=== PATIENT | female | born 1955 | race Caucasian/White ===

== ENCOUNTER 2021-01-28 10:01 | Inpatient (IN) | payer MEDICARE, SELFPAY ==
[2021-01-28] VITALS (63 sets, daily range): BP systolic 59–141; BP diastolic 35–92; PULSE 14–119; RESP 10–30; TEMP 37.1–37.9; O2SAT 92–100; BMI 39.3
--- NOTE | ~2021-01-28 | XR_ITS ---
EXAMINATION: XR abdomen/kub 1V DATE: 01/28/2021 13:59 INDICATION: Kidney stone TECHNIQUE: A supine view of the abdomen was obtained. COMPARISON: CT dated 01/28/2021 FINDINGS: The previously noted obstructing 5-6 mm stone in the proximal left ureter can be seen projecting call ed to the left transverse process of L4. The largest 6 mm right renal stone is also visualized. Tiny stones in the left kidney are unable to be distinguished. 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 Cholecyst ectomy clips in right upper quadrant. Surgical clip, possibly a dropped cholecystectomy clip projects over the central pelvis. Normal bowel gas pattern. IMPRESSION: 1. Bilateral nephrolithiasis with visualization of the previous noted obstructing 506 mm stone at the proximal left ureter. 2. 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 Reviewed, dictated and finalized at location A. ITAL INSURANCE CLERK IMPRESSION: 1. Bilateral nephrolithiasis with visualization of the previous noted obstructi ng 506 mm stone at the proximal left ureter. 2. 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
--- NOTE | ~2021-01-28 | XR_ITS ---
EXAMINATION: XR chest 1V portable DATE: 02/02/2021 05:45 INDICATION: Respiratory failure. Septic shock. TECHNIQUE: A single frontal view of the chest was obtained. COMPARISON: Chest single view 02/01/2021, CT abdomen and pelvis 01/30/2021 FINDINGS: There are airspace opacities in the lower lung zones. There are small pleural effusions. No pneumothorax. The heart size is normal. The endotracheal tube tip is 7.2 cm above the su. The na sogastric tube tip is in the stomach. A right internal jugular central venous catheter is seen with t ip in the proximal right atrium. IMPRESSION: 1. Stable small pleural effusions. 2. Improved airspace opacities in the lower lung zones, consistent with atelectasis versus pneumonia. Reviewed, dictated and finalized at location A. ER OCTAVE BOARD IMPRESSION: 1. Stable small pleural effusions. 2. Improved airspace opacities in the lower lung zones, consistent with atelect asis versus pneumonia.
--- NOTE | ~2021-01-28 | XR_ITS ---
EXAMINATION: XR chest 1V portable DATE: 02/03/2021 05:40 INDICATION: Respiratory failure. Septic shock. TECHNIQUE: A single frontal view of the chest was obtained. COMPARISON: Chest single view 02/02/2021, CT abdomen and pelvis 01/30/2021 FINDINGS: There are airspace opacities in the lower lung zones. There is a small left pleural effusio n. No pneumothorax. The heart size is normal. A right internal jugular central venous catheter is see n with tip at the superior cavoatrial junction. Surgical clips in the right upper quadrant are likely from cholecystectomy. IMPRESSION: 1. Stable airspace opacities in the lower lung zones, consistent with atelectasis versus pneumonia. 2. Stable small left pleural effusion. Reviewed, dictated and finalized at location A. CRUSHER IMPRESSION: 1. Stable airspace opacities in the lower lung zones, consistent with atelectas is versus pneumonia. 2. Stable small left pleural effusion.
--- NOTE | ~2021-01-28 | XR_ITS ---
XR chest ET placement DATE: 01/28/2021 16:27 INDICATION: ET tube placement TECHNIQUE: Portable supine AP chest on 01/28/2021 at 1618 hours COMPARISON: 01/28/2021 portable AP chest at 1510 hours FINDINGS: ET tube in satisfactory position 4.5 cm above su. NG tube in stomach. Right internal jugular central venous catheter tip is again noted with a loop in the lower aspect of the inferior vena cava, unchanged since 1510 hours. No pneumothorax is noted. There is mild bibasilar atelectasis. Cardiomegaly, mitral annulus calcification, aortic arch calcification. Diffuse osteopenia. IMPRESSION: ET and NG tubes in satisfactory position Right internal jugular central venous catheter is looped in the lower aspect of the superior vena cav a Bibasilar atelectasis Reviewed, dictated and finalized at Location A. Reviewed, dictated and finalized at location A. RMATION TECHNOLOGY ARCHITECT IMPRESSION: ET and NG tubes in satisfactory position Right internal jugular central venous catheter is looped in the lower aspect of the superior vena cava Bibasilar atelectasis
--- NOTE | ~2021-01-28 | XR_ITS ---
XR chest port-a-cath/central DATE: 01/28/2021 15:19 INDICATION: Central line placement TECHNIQUE: Portable supine AP chest on 01/28/2021 at 1510 hours COMPARISON: 01/28/2021 AP chest FINDINGS: A right internal jugular central venous catheter extends to the superior cavoatrial junctio n and then makes a 180 degree turn, looping proximally approximately 4 cm, distal tip overlying the m id to lower superior vena cava. Heart size is normal. Mitral annulus calcification. Aortic calcification. There is mild bibasilar infiltrate and/atelectasis. The lungs otherwise appear clear of consolidation . No pneumothorax or pleural effusion is evident. Diffuse osteopenia. Degenerative spurring of the thoracic spine, osteophytic change at the glenohumer al joints and degenerative change at the acromioclavicular joints. IMPRESSION: Right internal jugular central venous catheter looped upon itself in the lower superior v kayley cava No pneumothorax Mild bibasilar infiltrate and/or atelectasis Reviewed, dictated and finalized at Location A. Reviewed, dictated and finalized at location A. RANCE OFFICE MANAGER IMPRESSION: Right internal jugular central venous catheter looped upon itself i n the lower superior vena cava No pneumothorax Mild bibasilar infiltrate and/or atelectasis
--- NOTE | ~2021-01-28 | XR_ITS ---
EXAMINATION: XR chest port-a-cath/central DATE: 01/31/2021 14:21 INDICATION: Central line placement. TECHNIQUE: A single frontal view of the chest was obtained. COMPARISON: Chest single view at 12:23 PM, CT abdomen and pelvis 01/30/2021 FINDINGS: There are airspace opacities in the perihilar regions and at the lung bases. There are smal l pleural effusions. No pneumothorax. Cardiomegaly is noted. A right internal jugular central venous catheter is seen with tip in the proximal right atrium. The endotracheal tube tip is 5.0 cm above the su. The nasogastric tube tip is beyond the inferior margin of the radiograph, but at least to th e stomach. IMPRESSION: 1. New central line tip in proximal right atrium. 2. Worsened airspace opacities in the perihilar regions and at the lung bases, likely a combination o f atelectasis and mild pulmonary edema. 3. Small pleural effusions. 4. Cardiomegaly. Reviewed, dictated and finalized at location A. RITY SALES MANAGER IMPRESSION: 1. New central line tip in proximal right atrium. 2. Worsened airspace opacities in the perihilar regions and at the lung bases, likely a combination of atelectasis and mild pulmonary edema. 3. Small pleural effusions. 4. Cardiomegaly.
--- NOTE | ~2021-01-28 | XR_ITS ---
EXAMINATION: XR retrograde pyelo w/stent LT DATE: 01/28/2021 16:03 INDICATION: Left internal ureteral stent placement TECHNIQUE: Fluoroscopic images from a left internal ureteral stent placement are submitted for review . 11 seconds of fluoroscopy time. FINDINGS: There is a left double-J internal ureteral stent projecting in expected position, with proximal [place] loop at the level of the renal pelvis and distal loop in the pelvis within the bladder lumen. IMPRESSION: 1. Left internal ureteral stent placement. Please refer to real-time procedural findings for detail s. Reviewed, dictated and finalized at location A. E SALES DRIVER IMPRESSION: 1. Left internal ureteral stent placement. Please refer to real-time procedur al findings for details.
--- NOTE | ~2021-01-28 | XR_ITS ---
XR abdomen NG/feed tube insert DATE: 01/28/2021 16:27 INDICATION: Orogastric tube placement TECHNIQUE: Portable AP view of left upper and midabdomen on 01/28/2021 at 1620 hours COMPARISON: None FINDINGS: Orogastric tube is present, distal tip overlying the mid and lower aspect of the body of th e stomach. Radiopaque contrast material is noted in the left renal collecting structures. Degenerative spurring of the thoracic and lumbar spine. IMPRESSION: OG tube in mid to lower body of stomach Reviewed, dictated and finalized at Location A. Reviewed, dictated and finalized at location A. VASC TECH
--- NOTE | ~2021-01-28 | CT_ITS ---
EXAMINATION: CT chest abdomen pelvis wo con DATE: 01/28/2021 12:09 INDICATION: Tachycardia. Transient pneumonitis. TECHNIQUE: Computed tomography (CT) of the chest, abdomen, and pelvis was performed without intraveno us contrast. Automated exposure control and iterative reconstruction technique were employed. The dos e-length product was 1896.25 mGy-cm. COMPARISON: None FINDINGS: CHEST CT: Mild discoid and dependent atelectasis in the bilateral lower lobes and lingula. No pneumonia, pulmon keri edema, pleural effusion or pneumothorax. Heart size is normal. Atherosclerotic coronary artery os sification and mitral annular calcification. Thoracic aorta is normal in caliber. Enlargement of the main and left and right pulmonary arteries consistent with pulmonary arterial hypertension. No pathol ogically enlarged thoracic lymphadenopathy. There are bridging osteophytes at multiple levels in the thoracic spine consistent with diffuse idiopathic skeletal hyperostosis (DISH). ABDOMEN/PELVIS CT: Cholecystectomy clips the gallbladder fossa. Liver, spleen, pancreas and bilateral adrenal glands are normal. Bilateral nephrolithiasis with 6 mm nonobstructing stone at the posterior pole of the horizo ntally oriented right kidney and a couple 1-2 mm nonobstructing stones in the lower right kidney. The re is mild left hydroureteronephrosis proximally from an obstructing 5-6 mm stone in the proximal lef t ureter. There is moderate colonic diverticulosis with a descending and sigmoid colonic predominance but without adjacent inflammatory change to suggest diverticulitis. Small bowel and appendix are nor mal. Anteverted uterus, bilateral adnexa and decompressed bladder are unremarkable. No free intraperi toneal gas or fluid. No pathologically enlarged abdominal or pelvic lymphadenopathy. Mild lumbar spon dylosis and mild bilateral hip and sacroiliac osteoarthritis. IMPRESSION: 1. Bilateral nephrolithiasis with obstructing 5-6 mm proximal left ureteral stone with mild left hydr oureteronephrosis. Reviewed, dictated and finalized at location A. INGIZER IMPRESSION: 1. Bilateral nephrolithiasis with obstructing 5-6 mm proximal left ureteral sto ne with mild left hydroureteronephrosis.
--- NOTE | ~2021-01-28 | XR_ITS ---
EXAMINATION: XR chest 1V portable DATE: 02/01/2021 06:00 INDICATION: Respiratory failure. Septic shock. TECHNIQUE: A single frontal view of the chest was obtained. COMPARISON: Chest single view 01/31/2021 FINDINGS: There are airspace opacities in the mid and lower lung zones with a perihilar and basilar p redominance. There are small pleural effusions. No pneumothorax. Cardiomegaly is noted. The endotrach eal tube tip is 5.6 cm above the su. A right internal jugular central venous catheter is seen wit h tip at the superior cavoatrial junction. The nasogastric tube tip is beyond the inferior margin of the radiograph, but at least to the stomach. IMPRESSION: 1. Airspace opacities in the mid and lower lung zones with mild worsening on the right, consistent wi th atelectasis versus pneumonia. 2. Stable small pleural effusions. 3. Cardiomegaly. Reviewed, dictated and finalized at location A. JS DEVELOPER IMPRESSION: 1. Airspace opacities in the mid and lower lung zones with mild worsening on th e right, consistent with atelectasis versus pneumonia. 2. Stable small pleural effusions. 3. Cardiomegaly.
--- NOTE | ~2021-01-28 | XR_ITS ---
EXAMINATION: XR chest 1V DATE: 01/28/2021 12:10 INDICATION: Tachycardia. TECHNIQUE: frontal view of the chest was obtained. COMPARISON: None FINDINGS: Small lung volumes. Mild linear discoid atelectasis at the lateral left lower lung zone. No other air space opacities, pulmonary edema, pleural effusion or pneumothorax. Heart size is normal. Enlargement of the central pulmonary arteries consistent with pulmonary arterial hypertension. Dense mitral cassie lar calcification. Mild degenerative skeletal changes in the spine and both shoulders. IMPRESSION: 1. Small lung volumes with mild discoid atelectasis at the left lower lung zone. Reviewed, dictated and finalized at location A. SPECIALIST IMPRESSION: 1. Small lung volumes with mild discoid atelectasis at the left lower lung zone .
--- NOTE | ~2021-01-28 | XR_ITS ---
EXAMINATION: XR chest port-a-cath/central INDICATION: Dialysis catheter placement TECHNIQUE: Portable AP chest at 1229 hours COMPARISON: 0530 hours FINDINGS: A left-sided catheter is been inserted which ends with its tip to the left of the upper med iastinum. The tip of the catheter takes an acute rightward turn. Its final position is unclear based on the provided images. There is a right internal jugular central line which remains folded on itself in the superior vena cava. The endotracheal tube ends approximately 5.6 cm above the su. The claudette ogastric tube is followed as far as the stomach. Its tip is beyond the inferior margin of the radiogr aph. Cardiomegaly is noted. There are small pleural effusions. Patchy bilateral airspace opacities pe rsist without significant change. IMPRESSION: 1. Left-sided catheter insertion of unclear location. This was discussed with Dr. Alejo Guthrie MD at 1233 hours on 01/31/2021. Otherwise, no change. Reviewed, dictated and finalized at location B. GATOR HEAD IMPRESSION: 1. Left-sided catheter insertion of unclear location. This was discussed with Kyleigh Guthrie MD at 1233 hours on 01/31/2021. Otherwise, no change.
--- NOTE | ~2021-01-28 | CT_ITS ---
EXAMINATION: CT brain wo con DATE: 01/28/2021 13:40 INDICATION: Altered mental status with sudden onset confusion and unresponsiveness. TECHNIQUE: Computed tomography (CT) of the head was performed without intravenous contrast. Sagittal and coronal reconstructions were performed. The mA was adjusted according to patient size. Iterative reconstruction technique was employed. The dose-length product was 681.00 mGy-cm. COMPARISON: None FINDINGS: No acute intracranial hemorrhage, acute infarction or abnormal extra axial fluid collection. Ventricl es are normal and symmetric. No mass/mass effect. Changes of bilateral intraocular lens replacement. The orbits, paranasal sinuses and mastoid air cells are normal. Intracranial calcified cerebral ather osclerosis is noted. IMPRESSION: 1. Normal brain. No acute intracranial process. Reviewed, dictated and finalized at location A. RIOR COURT JUSTICE
--- NOTE | ~2021-01-28 | XR_ITS ---
XR abdomen/kub 1V 01/30/2021 09:20 Indication: Stent positioning Procedure: KUB Comparison: 01/28/2021 Findings: Bowel gas pattern is nonobstructive. There are cholecystectomy clips. There is left interna l ureteral stent. There is a right renal stone. There is a faint calcific density overlying the left ureteral stent at the L3-4 level, suspicious for ureteral stone. There is moderate lumbar spondylosis . There is moderate bilateral osteoarthritis of the hips. Impression: 1: Possible proximal left ureteral stone. 2: Right nephrolithiasis. Reviewed, dictated and finalized at location A. OPERATIONS TECHNICAL DIRECTOR Impression: 1: Possible proximal left ureteral stone. 2: Right nephrolithiasis.
--- NOTE | ~2021-01-28 | US_ITS ---
EXAMINATION: US renal BI DATE: 01/30/2021 08:13 INDICATION: Hydronephrosis. TECHNIQUE: Multiple ultrasound grayscale images of the kidneys were obtained. COMPARISON: CT 01/28/2021 FINDINGS: The right kidney measures 11.2 x 5.4 x 7.1 cm. The left kidney measures 10.8 x 4.7 x 5.6 cm. The kidn eys demonstrate normal parenchymal echogenicity. There is a 7 mm stone in right kidney upper pole. Th ere is no visible hydronephrosis. The bladder is decompressed by a Weiss catheter. IMPRESSION: 1. Left kidney poorly visualized. Hydronephrosis cannot be confirmed or excluded. 2. 7 mm nonobstructing right kidney stone. Reviewed, dictated and finalized at location A. DENTIAL INSURANCE INSPECTOR IMPRESSION: 1. Left kidney poorly visualized. Hydronephrosis cannot be confirmed or exclud ed. 2. 7 mm nonobstructing right kidney stone.
--- NOTE | ~2021-01-28 | XR_ITS ---
EXAMINATION: XR chest 1V portable DATE: 01/31/2021 05:51 INDICATION: Respiratory failure. Septic shock. TECHNIQUE: A single frontal view of the chest was obtained. COMPARISON: Chest single view 01/30/2021, CT abdomen and pelvis 01/30/2021 FINDINGS: There are airspace opacities in the mid and lower lung zones. There are small pleural effus ions. No pneumothorax. Cardiomegaly is noted. The endotracheal tube tip is 4.7 cm above the su. A right internal jugular central venous catheter is seen with tip folded on itself in the superior nemo a cava. IMPRESSION: 1. Small pleural effusions. 2. Worsened airspace opacities in the mid and lower lung zones, consistent with atelectasis or less l ikely pneumonia. 3. Cardiomegaly. 4. Central line tip folded on itself in the superior vena cava. Reviewed, dictated and finalized at location A. IGERATION SUPERVISOR IMPRESSION: 1. Small pleural effusions. 2. Worsened airspace opacities in the mid and lower lung zones, consistent with atelectasis or less likely pneumonia. 3. Cardiomegaly. 4. Central line tip folded on itself in the superior vena cava.
--- NOTE | ~2021-01-28 | XR_ITS ---
EXAMINATION: XR chest 1V portable DATE: 01/30/2021 05:44 INDICATION: Respiratory failure. Septic shock. TECHNIQUE: A single frontal view of the chest was obtained. COMPARISON: Chest single view 01/28/2021, chest CT 01/28/2021 FINDINGS: The lung volumes are small. There are airspace opacities at the lung bases. No pleural effu agnes or pneumothorax. The heart size is normal. The nasogastric tube tip is in the stomach. The endot joaquín tube tip is 6.9 cm above the su. A right internal jugular central venous catheter is seen with tip at the superior cavoatrial junction. IMPRESSION: 1. Small lung volumes with stable airspace opacities at the lung bases, likely atelectasis. Reviewed, dictated and finalized at location A. ENSARY CLERK
--- NOTE | ~2021-01-28 | CT_ITS ---
EXAMINATION: CT abdomen pelvis wo con DATE: 01/30/2021 10:03 INDICATION: Acute renal failure TECHNIQUE: Computed tomography (CT) of the abdomen and pelvis was performed without intravenous contr ast. The dose-length product (DLP) was 1714.63 mGy-cm. Automated exposure control and iterative recon struction technique were employed. COMPARISON: 01/28/2021 FINDINGS: Cardiomegaly is noted. There are small pleural effusions. There is atelectasis of the visua lized lung bases. A nasogastric tube is in the stomach. There is dense calcification of the mitral an nulus. The gallbladder is surgically absent. There is a small volume of perisplenic ascites. Within t he limitations of noncontrast examination, the liver, spleen, pancreas, and adrenal glands are normal . A left internal ureteral stent has been placed in expected position. There is a 4 mm stone adjacent to the proximal stent. There is a 10 mm nonobstructing stone of the right kidney. There is a [address] one in the urinary bladder, likely reflecting the stone previously seen at the left ureterovesicular junction. No pathologically enlarged abdominal or pelvic lymph nodes are identified. There is no free intraperitoneal gas or evidence of bowel obstruction. Colonic diverticulosis is present without evid ence of diverticulitis. IMPRESSION: 1. Left internal ureteral stent in expected position with 4 mm stone adjacent to the proximal stent a nd 4 mm stone in the urinary bladder. 2. Nonobstructing right nephrolithiasis. 3. Small volume of ascites. 4. Cardiomegaly, small pleural effusions, and atelectasis of the lung bases. Reviewed, dictated and finalized at location B. S SALES REPRESENTATIVE IMPRESSION: 1. Left internal ureteral stent in expected position with 4 mm stone adjacent t o the proximal stent and 4 mm stone in the urinary bladder. 2. Nonobstructing right nephrolithiasis. 3. Small volume of ascites. 4. Cardiomegaly, small pleural effusions, and atelectasis of the lung bases.
--- NOTE | 2021-01-28 10:27 | ECG_ITS ---
Measurements Intervals [place] Rate: 88 P: IN: 0 QRS: 72 QRSD: 162 T: 0 QT: 330 QTc: 401 Interpretive Statements ACCELERATED JUNCTIONAL RHYTHM DELAYED PRECORDIAL R/S TRANSITION BASELINE ARTIFACT- II, III, AVR, AVF, V1-V6 ABNORMAL ECG Electronically Signed On 01-28-2021 13:33:55 PHYSICAL THERAPIST ASSISTANT by Chuy Eaton D.O.
[2021-01-28 10:43] LABS: Hematocrit 40.8 % (37.0-47.0); Hemoglobin 12.7 g/dL (12.0-15.0); Immature Granulocyte Absolute 0.09 K/mm3 (0.00-0.031); Immature Granulocyte Percent A 16.4 % (0-0.5); Lymphocytes Absolute Auto 0.16 K/mm3 (0.9-3.2); Lymphocytes Percent Auto 29.1 % (18.3-44.2); Mean Corpuscular HGB Conc 31.1 g/dl (32-36); Mean Corpuscular Hemoglobin 30.8 pg (26-34); Mean Corpuscular Volume 98.8 fl (80-100); Mean Platelet Volume 10.1 fl (7.4-10.4); Monocytes Percent Auto 1.8 % (2.6-8.5); Neutrophils Absolute Auto 0.3 K/mm3 (1.3-6.7); Neutrophils Percent Auto 52.7 % (45.5-73.1); Platelet Count Result 161 k/mm3 (150-375); Red Blood Count 4.13 M/mm3 (4.2-5.4); Red Cell Distribution Width 14.1 % (11.5-14.5)
[2021-01-28 10:53] LABS: Add Urine Microscopic? YES; Appearance Urine Cloudy (Clear); Bacteria Urine Trace /hpf; Bilirubin Urine Negative (Negative); Color Urine Amber (Yellow); Glucose Urine UA Negative (Negative); Hyaline Casts Urine 50+ /lpf; Ketones Urine Negative (Negative); Leukocyte Esterase Ur 3+ LEU/UL (Negative); Mucus Urine Heavy /lpf; Nitrate Urine Negative (Negative); Protein Urine 2+ mg/dL (Negative); Specific Grav Ur 1.023 (1.001-1.035); Squamous Epithelial Cell Urine Occasional /hpf (Few); WBC Clumps Urine Present /HPF; WBC Urine >75 /hpf
[2021-01-28 10:59] LABS: White Blood Count 0.6 K/mm3 (4.5-10.0)
[2021-01-28 11:00] LABS: Blood Urine Negative (Negative)
[2021-01-28 11:01] LABS: Albumin Level 3.7 g/dL (3.5-5.1); Alkaline Phosphatase 246 U/L (38-126); Anion Gap 17 mmol/L (8-16); Aspartate Amino Transferase 97 U/L (14-36); Bilirubin,Total 1.9 mg/dL (0.2-1.3); Blood Urea Nitrogen 66 mg/dL (7-17); Carbon Dioxide 23 mmol/L (22-30); Chloride 100 mmol/L (98-107); Estimated CRCL calculation 24 ml/min; Estimated Glomerular Filt Rate 18; Glucose 238 mg/dL (65-110); Potassium 5.5 mmol/L (3.4-5.0); Sodium 140 mmol/L (137-145)
[2021-01-28 11:03] LABS: Alanine Aminotransferase 74 U/L (4-35)
--- NOTE | 2021-01-28 11:07 | ED.GENADULT ---
HPI - General Adult General Chief complaint: Altered Mental Status Stated complaint: AMS Time Seen by Provider: 01/28/21 10:19 Source: family Mode of arrival: EMS Limitations: altered mental status History of Present Illness HPI narrative: Patient presents for evaluation of altered mental status. She is here in the company of her son who serves as primary historian. Patient son indicates that she called him yesterday and informed him that she was experiencing chills, confusion and shaking. On of last week she was experiencing constipation. She had an episode of vomiting at that time. She took a laxative and was able to have several bowel movements thereafter. The following day she was doing well. She was able to drive her parents to [place] at that time. Yesterday, in additional to previously mentioned symptoms, she check her BS and it was over 300. She administered her insulin and her BS improved to 180. Son states that he attempted to call his mother today and she did not answer the phone. He drove to her residence and found her laying on her side, confused and out of it . He contacted EMS who brought her here for further evaluation. On my initial exam, she is oriented to person but confused about place and time. Related Data Home Medications Medication Instructions Recorded Confirmed atorvastatin 01/28/21 docusate sodium [Colace] 100 mg PO DAILY 01/28/21 01/28/21 dulaglutide [Trulicity] mg SUBCUT 01/28/21 gabapentin 01/28/21 insulin glargine [Lantus Solostar SUBCUT 01/28/21 U-100 Insulin] quinapril-hydrochlorothiazide tablet 01/28/21 Allergies Allergy/AdvReac Type Severity Reaction Status Date / Time Penicillins Allergy Rash Verified 01/28/21 11:11 Review of Systems Review of Systems: ROS unobtainable: Yes unobtainable due to mental status [facility] Past Medical History Medical History Diabetes Hyperlipidemia Hypertension Family History Family History Father Hypertension Diabetes mellitus Parkinsons Social History Social History Alcohol intake: never Substance use: never Living arrangements: alone Gender identity (if verbalized by the patient): Female Spiritual care concerns: No Exam Narrative: GENERAL: Well-appearing, well-nourished, and in no acute distress. HEAD: Normocephalic, atraumatic. EYES: PERRLA and EOMI. ENT: Nares clear, no rhinorrhea or epistaxis. Mucous membranes moist. Oropharynx without tonsillar hypertrophy exudate or other lesions. Bilateral TMs pearly doherty nonbulging NECK: Supple. No adenopathy or masses. No carotid bruits or JVD CHEST: Diminished lung sounds throughout. No respiratory distress. No wheezes rales or rhonchi. O2 at 2 L NC HEART: Rate 118. No murmur heard. Normal peripheral pulses. ABDOMEN: Soft, nontender, distended, normal active bowel sounds. EXTREMITIES: Normal range of motion. No edema. SKIN: Warm, dry, no rash. NEURO: No focal deficits. Lethargic. Oriented to person. Confused about place and time. PSYCH: Normal mood and affect. Course Course Emergency Course: This is a 65-year-old female that presented with altered mental status, with suspected underlying infection based on reported symptoms. On my initial evaluation she was tachycardic. Suspected sepsis. Patient had neutropenia with lactic acidosis. Renal function was impaired so noncontrast study CT Chest abd pelvis ordered. There is evidence of obstructing stone in left ureter. Urinalysis consistent with UTI. Started on Rocephin. Hydrated with 30 mils per kilo of IV fluid. I discussed all relevant facts of case with supervising MD, Dr Sosa, who recommended contacting urology. I discussed all relevant facts of case with urologist, Dr. Suarez. He indicated that pt would likely n
[2021-01-28] MEDS: SODIUM CHLORIDE 0.9% IV 1,000 ML 999 ML IV CONT ×5 (11:31→22:22)
[2021-01-28 11:46] LABS: INR 1.2; Prothrombin Time 15.1 Seconds (11.1-14.7)
[2021-01-28 11:47] LABS: Partial Thromboplastin Time 33.3 SECONDS (22.3-36.8)
[2021-01-28 11:49] LABS: Ammonia < 9 umol/L (9-30)
[2021-01-28 11:51] LABS: Lipase 28 U/L (23-300)
[2021-01-28 11:52] LABS: Lactic Acid Reflex 7.1 mmol/L (0.7-2.1)
[2021-01-28 11:59] LABS: Beta-Hydroxybutyrate/Acetoacetate 0.49 mmol/L (0.02-0.27)
[2021-01-28 12:10] LABS: D Dimer 16.61 ug/mL (<0.48)
--- NOTE | 2021-01-28 13:56 | WPDCNINT ---
Assessment and Plan Assessment and plan (1) Sepsis: Qualifiers: Sepsis acute organ dysfunction status: unspecified Sepsis type: sepsis due to unspecified organism Qualified Code(s): A41.9 - Sepsis, unspecified organism Code(s): A41.9 - Sepsis, unspecified organism Status: Acute Assessment and Plan: Severe sepsis secondary to UTI. Urine and blood cultures have been sent To [facility] ER to switch antibiotics to imipenem to cover for ESBL She is getting 30 mL/kg fluid bolus. Blood pressure is low at this time If blood pressure remains low after fluid bolus she will need vasopressors which will be started if needed Serial lactic acid level every 4 hours (2) Urinary tract infection: Qualifiers: Hematuria presence: without hematuria Urinary tract infection type: site unspecified Qualified Code(s): N39.0 - Urinary tract infection, site not specified Code(s): N39.0 - Urinary tract infection, site not specified Status: Acute Assessment and Plan: See above (3) PEREZ (acute kidney injury): Code(s): N17.9 - Acute kidney failure, unspecified Status: Acute Assessment and Plan: Likely secondary to sepsis and obstruction leading to hydronephrosis. Patient also on diuretics and Tyrell inhibitor which are on hold CT reviewed. See plan to place stent by Urology Aggressive IV fluid resuscitation Monitor urine output creatinine electrolytes (4) Calculus of left kidney: Code(s): N20.0 - Calculus of kidney Status: Acute Assessment and Plan: CT MPRESSION: 1. Bilateral nephrolithiasis with obstructing 5-6 mm proximal left ureteral stone with mild left hydroureteronephrosis. Urology has been consulted and plan for stent placement today (5) Transaminitis: Code(s): R74.01 - Elevation of levels of liver transaminase levels Status: Acute Assessment and Plan: Likely secondary to shock. Hold statin Monitor levels (6) Encephalopathy: Code(s): G93.40 - Encephalopathy, unspecified Status: Acute Assessment and Plan: Likely toxic metabolic encephalopathy from sepsis Head CT negative Check ABG and ammonia She is able to protect her airway at this time and does not need intubation but if deteriorates further, she may need intubation (7) Elevated troponin: Code(s): R77.8 - Other specified abnormalities of plasma proteins Status: Acute Assessment and Plan: Likely type 2 non STEMI from sepsis. EKG reviewed and shows no ST elevation. Serial troponin Add aspirin Check echo Cardiology consultation (8) Hyperkalemia: Code(s): E87.5 - Hyperkalemia Status: Acute Assessment and Plan: Secondary to acidosis DKA and PEREZ She is getting 3 L saline bolus Repeat BMP in 4 hours (9) DKA (diabetic ketoacidosis): Code(s): E11.10 - Type 2 diabetes mellitus with ketoacidosis without coma Status: Acute Assessment and Plan: Patient's blood glucose is 200 range and her beta hydroxybutyrate is slightly positive. Patient has mixed acidosis due to elevated lactic acid level She is currently getting IV fluid bolus I will repeat her BMP and beta hydroxybutyrate in 4 hours. If patient is still positive I will start IV insulin infusion otherwise will use subcutaneous insulin Patient will be NPO at this time Additional Plan DVT prophylaxis -subQ heparinn Nutrition -NPO at this Code Status - Full Code as per her son Total Critical Care Time - 40 minutes Due to a high probability of clinically significant, life threatening deterioration, the patient required my highest level of preparedness to intervene emergently and I personally spent this critical care time directly and personally managing the patient. This critical care time included obtaining a history; examining the patient; pulse oximetry; ordering and review of studies; arranging urgent treatment with development of a manageme
--- NOTE | 2021-01-28 14:35 | WPDANESEPP ---
Anes - Eval Pre Procedure Procedure: Left stent placement Date/Time: 01/28/21 14:35 Surgeon: Daniela Preop Diagnosis: urosepsis, left ureteral stone 5-6mm , mild hydronephrosis Pre Op Diagnosis: Sepsis, UTI, Kidney Stones, EKI Patient Data Age: 65 Gender: F Height: 1.7 m Weight: 108.86 kg Last Vital Signs Temp 100.3 F H 01/28/21 10:03 Pulse 102 H 01/28/21 13:41 Resp 26 H 01/28/21 13:41 BP 85/48 L 01/28/21 13:41 Pulse Ox 96 01/28/21 13:41 Allergies Allergy/AdvReac Type Severity Reaction Status Date / Time Penicillins Allergy Rash Verified 01/28/21 11:11 Home Medications Medication Instructions Recorded Confirmed Type atorvastatin 01/28/21 History docusate sodium [Colace] 100 mg PO DAILY 01/28/21 01/28/21 History dulaglutide [Trulicity] mg SUBCUT 01/28/21 History gabapentin 01/28/21 History insulin glargine [Lantus Solostar SUBCUT 01/28/21 History U-100 Insulin] quinapril-hydrochlorothiazide tablet 01/28/21 History Laboratory Tests 01/28/21 01/28/21 01/28/21 10:30 10:31 10:31 WBC 0.6 K/mm3 L* K/mm3 (4.5-10.0) RBC 4.13 M/mm3 L M/mm3 (4.2-5.4) Hgb 12.7 g/dL g/dL (12.0-15.0) Hct 40.8 % % (37.0-47.0) MCV 98.8 fl fl (80-100) MCH 30.8 pg pg (26-34) MCHC 31.1 g/dl L g/dl (32-36) RDW 14.1 % % (11.5-14.5) Plt Count 161 k/mm3 k/mm3 (150-375) MPV 10.1 fl fl (7.4-10.4) Immature Gran % (Auto) 16.4 % H % (0-0.5) Neut % (Auto) 52.7 % % (45.5-73.1) Lymph % (Auto) 29.1 % % (18.3-44.2) [place] % (Auto) 1.8 % L % (2.6-8.5) Eos % (Auto) 0.0 % % (0-4.4) Baso % (Auto) 0.0 % L % (0.2-1.2) Lymph # (Auto) 0.16 K/mm3 L K/mm3 (0.9-3.2) [place] # (Auto) 0.0 K/mm3 L K/mm3 (0.1-0.6) Eos # (Auto) 0.0 K/mm3 K/mm3 (0-0.3) Baso # (Auto) 0.0 K/mm3 K/mm3 (0.0-0.1) Abs Immat Gran (auto) 0.09 K/mm3 H K/mm3 (0.00-0.031) Absolute Neuts (auto) 0.3 K/mm3 L K/mm3 (1.3-6.7) Absolute Nucleated RBC 0.0 K/mm3 K/mm3 (0.0-0.012) Nucleated RBC % 0.0 % % (0.0-0.2) PT 15.1 Seconds H Seconds (11.1-14.7) INR 1.2 APTT 33.3 SECONDS SECONDS (22.3-36.8) D-Dimer 16.61 ug/mL H ug/mL (<0.48) Sodium Potassium Chloride Carbon Dioxide Anion Gap BUN Creatinine Estim Creat Clear Calc Estimated GFR Glucose Lactic Acid Calcium Total Bilirubin AST ALT Alkaline Phosphatase Ammonia Troponin I Total Protein Albumin Lipase Beta-Hydroxybutyrate/Acetoacetate Urine Color Debi (Yellow) Urine Appearance Cloudy H (Clear) Urine pH 5.0 (5.0-9.0) Ur Specific [place] 1.023 (1.001-1.035) Urine Protein 2+ mg/dL H mg/dL (Negative) Urine Glucose (UA) Negative mg/dL mg/dL (Negative) Urine Ketones Negative mg/dL mg/dL (Negative) Ur Blood (Man) Negative (Negative) Urine Nitrate Negative (Negative) Urine Bilirubin Negative (Negative) Urine Urobilinogen 2.0 mg/dL H mg/dL (<2.0) Leukocyte Esterase Rfl 3+ RHINA/UL H RHINA/UL (Negative) Urine RBC 11-20 /hpf H /hpf (0-2) Urine WBC >75 /hpf H /hpf Urine WBC Clumps Present /HPF H /HPF (None) Ur Squamous Epith Cells Occasional /hpf /hpf (Few) Urine Bacteria Trace /hpf /hpf Hyaline Casts 50+ /lpf H /lpf (None) Urine Mucus Heavy /lpf H /lpf SARS-CoV-2 RNA (RT-PCR) 01/28/21 01/28/21 01/28/21 10
[2021-01-28 14:37] LABS: Reflex Lactic Acid Yes or No Add Lactic
[2021-01-28 15:10] LABS: Glucose Point of Care 161 mg/dl (65-105)
[2021-01-28] MEDS: NOREPINEPHRINE 8 MG/D5W 250 ML 8 MG/250 ML BAG 9.38 MG IV CONT (15:15)
[2021-01-28] MEDS: SODIUM CHLORIDE 0.9% IV 1,000 ML 125 ML IV CONT (15:21)
--- NOTE | 2021-01-28 15:26 | PC.NURSE ---
consent for central line signed by son and placed in chart.
--- NOTE | 2021-01-28 15:29 | WPDURCON ---
Assessment and Plan Assessment and plan (1) Sepsis: Qualifiers: Sepsis acute organ dysfunction status: unspecified Sepsis type: sepsis due to unspecified organism Qualified Code(s): A41.9 - Sepsis, unspecified organism Code(s): A41.9 - Sepsis, unspecified organism Status: Acute Assessment and Plan: Management per cloth weaver (2) Left ureteral calculus: Code(s): N20.1 - Calculus of ureter Status: Acute Assessment and Plan: Plan on cysto retrograde stent placement to give kidney maximal drainage given her sepsis. Urology Consult Note HPI Date Seen: 01/28/21 Requesting Physician: Mj Suarez MD Primary Care Provider: Jose Aguilar, Consult Narrative Narrative: Isamar Sarabia is a 65 year old female who was found unconscious by her son at her home. She is currently intubated and septic. Patient was found to have a 6 mm obstructing left ureteral calculus with some hydro present. Given these findings we have decided to proceed with simply a stent placement at this time. Review of Systems Review of Systems: All systems reviewed & are unremarkable except as noted in HPI and below PMFSH Past Medical History Medical History Diabetes Hyperlipidemia Hypertension Urinary tract infection Frequent Family History Family History Father Hypertension Diabetes mellitus Parkinsons Social History Social History Alcohol intake: never Substance use: never Living arrangements: alone Gender identity (if verbalized by the patient): Female Spiritual care concerns: No Meds Home Medications and Allergies Home Medications Medication Instructions Recorded Confirmed Type atorvastatin 01/28/21 History docusate sodium [Colace] 100 mg PO DAILY 01/28/21 01/28/21 History dulaglutide [Trulicity] mg SUBCUT 01/28/21 History gabapentin 01/28/21 History insulin glargine [Lantus Solostar SUBCUT 01/28/21 History U-100 Insulin] quinapril-hydrochlorothiazide tablet 01/28/21 History Allergies Allergy/AdvReac Type Severity Reaction Status Date / Time Penicillins Allergy Rash Verified 01/28/21 11:11 Vital Signs Vital Signs - 24 hr 01/28/21 10:03 01/28/21 10:39 01/28/21 10:45 Temperature 37.9 C H Pulse Rate 89 119 H 119 H Respiratory Rate 10 L 26 H 25 H Blood Pressure 123/52 L Pulse Oximetry 92 97 99 01/28/21 10:46 01/28/21 10:59 01/28/21 11:00 Temperature Pulse Rate 119 H 117 H 117 H Respiratory Rate 23 H 20 26 H Blood Pressure 141/55 H 141/55 H Pulse Oximetry 99 97 01/28/21 11:01 01/28/21 11:15 01/28/21 11:16 Temperature Pulse Rate 117 H 115 H 115 H Respiratory Rate 26 H 27 H 27 H Blood Pressure 130/60 122/54 L Pulse Oximetry 01/28/21 11:19 01/28/21 11:30 01/28/21 11:31 Temperature Pulse Rate 114 H 113 H 113 H Respiratory Rate 23 H 26 H 26 H Blood Pressure 104/50 L Pulse Oximetry 01/28/21 11:50 01/28/21 12:12 01/28/21 12:15 Temperature Pulse Rate 112 H 110 H 108 H Respiratory Rate 25 H 26 H 28 H Blood Pressure Pulse Oximetry 01/28/21 12:30 01/28/21 12:45 01/28/21 13:08 Temperature Pulse Rate 111 H 105 H 102 H Respiratory Rate 28 H 26 H 22 H Blood Pressure Pulse Oximetry 01/28/21 13:15 01/28/21 13:19 01/28/21 13:20 Temperature Pulse Rate 102 H 104 H Respiratory Rate 25 H 24 H Blood Pressure 90/44 L 90/44 L Pulse Oximetry 97 01/28/21 13:21 01/28/21 13:25 01/28/21 13:41 Temperature Pulse Rate 102 H Respiratory Rate 26 H Blood Pressure 83/50 L 85/48 L Pulse Oximetry 95 96 96 01/28/21 13:42 01/28/21 13:45 01/28/21 13:54 Temperature Pulse Rate 101 H 102 H Respiratory Rate 26 H 30 H Blood Pressure 84/48 L Pulse Oximetry 96 96 11
--- NOTE | 2021-01-28 15:32 | WPDHPUPDATE1 ---
History and Physical Update Update Date/Time: 01/28/21 15:32 History and Physical has been reviewed, including an updated exam of the patient. There are NO changes in the patient's condition. Risks, benefits, and alternatives have been discussed and questions answered. Patient agrees to proceed with procedure. Proceed with cysto, left retrograde, left stent placement
--- NOTE | 2021-01-28 15:40 | PC.NURSE ---
pt had levo increased to 10mcg at 1530 dr reece decided to intubate the pt meds given Etomidate 20 at 1532 Oswaldo 50 at 1534 Versed 2 mg at 1532 tube size was 7.5, 25 at the teeth levo again increased per dr reece to 13.3mcg at 1537 departing bp was 93/62 Dr reece asked that the insulin drip not be started to pt BG dropping.
[2021-01-28] MEDS: RAPID SEQUENCE INTUBATION KIT 1 EACH (15:50)
--- NOTE | 2021-01-28 15:51 | PCRCNOTE ---
Unable to obtain ABG at this time due to ED Physican placing central line, and urgently taken to surgrey after intubation
--- NOTE | 2021-01-28 16:01 | W.PM.PROC2 ---
Procedure Note - Detailed Date of Procedure 01/28/21 Pre-op Diagnosis Sepsis, UTI, Kidney Stones, EKI Post-op Diagnosis same Procedure Performed Cystoscopy, left retrograde pyelogram, left ureteral stent placement 6 Marshallese contour Surgeon Mj Suarez MD Anesthesia general Findings Obstructing left proximal ureteral calculus with pyuria Description of Procedure Patient is in the operative suite intubated. She is prepped and draped usual sterile fashion. Twenty-two Marshallese scope inserted into the bladder. There is no tumors noted. The left orifice was cannulated with a guidewire. There was return of purulence noted. [place] was then passed over it up to the kidney. We obtained a specimen of urine for culture from the left renal pelvis. Pyelogram was performed to confirm placement of the stent. Guidewire was replaced. Six Marshallese contour stent was then placed with the proximal end coiled in the renal pelvis and the distal in the bladder. 2% viscous lidocaine was inserted urethra 16 Marshallese Weiss was placed with 10 cc in the balloon. She will be transferred to the intensive care unit. Definitive stone management will be obtained should the patient recover from this acute event Urine Output 175 Drains Yes Packing No Pathology other (Urine culture from left renal pelvis) Complications No immediate complications Condition critical Disposition ICU
[2021-01-28] MEDS: SODIUM BICARBONATE 8.4% 50 MEQ/50 ML SYRINGE 100 MEQ IV PUSH (16:40)
[2021-01-28 16:48] LABS: Hematocrit 30.1 % (37.0-47.0); Hemoglobin 9.7 g/dL (12.0-15.0); Mean Corpuscular HGB Conc 32.2 g/dl (32-36); Mean Corpuscular Hemoglobin 30.9 pg (26-34); Mean Corpuscular Volume 95.9 fl (80-100); Mean Platelet Volume 10.1 fl (7.4-10.4); Platelet Count Result 140 k/mm3 (150-375); Red Blood Count 3.14 M/mm3 (4.2-5.4); Red Cell Distribution Width 14.5 % (11.5-14.5); White Blood Count 3.1 K/mm3 (4.5-10.0)
--- NOTE | 2021-01-28 16:49 | PM.IMHP ---
H&P: HPI History of Present Illness Date/Time: 01/28/21 16:49 this is a 65-year-old female patient who lives home alone. She was brought into the emergency room today to be evaluated for altered mental status. Her son is at the bedside as the patient is a poor historian. The son indicated that the patient called him yesterday informed him that she was experiencing some chills, confusion and shaking. The patient was having problems with constipation on and then vomited at that time. She took a laxative and was able to have several bowel movements thereafter. The following day she was doing well. She is able to drive her parents to [place] at that time. However yesterday the patient also had a blood sugar over 300. She administered her insulin and the blood sugar did improve and came down to 180. Her son attempted to call her today and she did answer the phone. He drove to her resident and found her lying on her side and was confused. He contacted the EMS who brought her here for evaluation. The patient was only orientated to person but confused about place and time. The patient became hypotensive and a central line was placed per ER physician. Her white count distended 0.6. Her D-dimer is noted to be 16.61. Potassium was noted to be 5.5. BUN 66 creatinine 2.7. Lactic was noted to be 7.1. Glucose 238 and then 161. AST 97 ALT 74 alkaline phosphatase 246. Troponin 1.680. Her be help was noted to be 0.49. COVID test is pending. Urine was positive for UTI. Chest abdominal pelvis CT was read as bilateral nephrolithiasis with obstructing 5-6 mm proximal left ureteral stone with mild left hydronephrosis. Head CT was read as a normal brain no acute intracranial process. Abdominal x-ray was read as bilateral nephrolithiasis with visualization of the previous noted obstructing 5-6 mm stone in the proximal left ureter. 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 After the right IJ central line was placed a chest x-ray was obtained and was read as right internal jugular central venous catheter looped upon itself in the lower superior vena cava. The patient also was intubated per ED provider and chest x-ray was read as ET and NG tube in satisfactory position. Urology had been consulted. The patient was taken to OR for cystoscopy, left retrograde pyelogram, left ureteral stent placement 6 Uzbek contour. Patient had been given IV fluids, initially Rocephin then changed to cefepime and then changed to Primaxin. She was also given insulin in the emergency room along with sodium bicarb. She was given at least 3 IV boluses prior to receiving a central line and starting Levophed. Child Psychology Teacher had been notified and has already seen the patient. The son is at the bedside answering questions for me. The patient is being admitted to inpatient ICU on the day of service 01/28/2021 Chief Complaint: Confusion Review of Systems Review of Systems: ROS unobtainable: Yes unobtainable due to endotracheal tube and unobtainable due to mental status PMFSH Past Medical History Medical History (Updated 01/28/21 @ 15:31 by Mj Suarez MD) Diabetes Hyperlipidemia Hypertension Urinary tract infection Frequent Surgical History Surgical History (Updated 01/28/21 @ 17:06 by Elizabeth Segura NP) H/O breast biopsy H/O cystoscopy History of 2 sections History of removal of ovarian cyst Family History Family History (Updated 01/28/21 @ 17:07 by Elizabeth Segura NP) Father Hypertension Diabetes mellitus Parkinsons Mother Heart disease Hypertension Social History Social History (Updated 01/28/21 @ 17:07 by Elizabeth Segura NP) Social History: The patient has 2 sons. Her son Heri is the durable power patent prosecution attorney for healthcare. 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 She is . Patient is a lifelong nonsmoker. She does not use any alcohol marijuana or illicit drugs. [place]
[2021-01-28 16:53] LABS: Alveolar/Arterial O2 Gradient 488.5 mmHg; Base Excess ABG -9.7 mEq/l (+/-2.0); Fractional Inspired Oxygen 100 %; HCO3 ABG 16.5 mEq/l (22.0-26.0); Oxygen Content ABG 15.4 %vol (16.0-22.0); Oxygen Saturation ABG 99.1 % (95.0-100.0); PCO2 ABG 37.1 mmHg (35.0-45.0); PO2 ABG 187.4 mmHg (80.0-100.0); PO2 FiO2 Ratio Arterial Blood 1.87 %; Total Hemoglobin 10.9 g/dL (12.0-18.0)
[2021-01-28 16:55] LABS: Device VENTILATOR; Modified Allen's Test Pass; Site Drawn RIGHT RADIAL; pH ABG 7.266 (7.350-7.450)
[2021-01-28] MEDS: VASOPRESSIN INJ 100 UNITS in DEXTROSE 5% 95 ML IV CONT (16:55)
[2021-01-28 16:56] LABS: Arterial Blood Gas PEEP 5 cmH2O; Arterial Blood Gas Tidal Volume 450 ml; Arterial Blood Gas Vent Mode CMV; Arterial Blood Gas Ventilator rate 20 /MIN
[2021-01-28] MEDS: ASPIRIN 300 MG SUPPOSITORY RECTAL (17:03)
[2021-01-28 17:05] LABS: Anion Gap 12 mmol/L (8-16); Blood Urea Nitrogen 68 mg/dL (7-17); Calcium 9.1 mg/dL (8.4-10.2); Carbon Dioxide 27 mmol/L (22-30); Chloride 106 mmol/L (98-107); Estimated CRCL calculation 21 ml/min; Estimated Glomerular Filt Rate 16; Glucose 192 mg/dL (65-110); Potassium 3.9 mmol/L (3.4-5.0); Sodium 145 mmol/L (137-145)
[2021-01-28 17:09] LABS: Lactic Acid Reflex 5.8 mmol/L (0.7-2.1)
--- NOTE | 2021-01-28 17:10 | ADMGEN ---
This patient, Isamar Sarabia, was admitted to Intensive Care Unit-7 at 1615 on 01/28/21. Patient/family oriented to hospital policies and general routines including ID bracelet, bed and alarms, visiting hours, pain management, procedures, bathroom and other care routines, personal items, smoking policy, room service/diet, and visiting hours. Information on how to activate the Rapid Response Team has been discussed. Patient/Family are encouraged to report perceived risks to care and to ask questions if they do not understand what they are told or what they should do.
[2021-01-28 17:17] LABS: Band Neutrophils Percent 28 % (0-6); Lymphocytes Absolute Manual 0.18 K/mm3 (1.1-4.5); Metamyelocytes Percent 3 %; Monocytes Absolute Manual 0.06 K/mm3 (0.1-0.90); Monocytes Percent Manual 2 % (3-9); Neutrophils Absolute Manual 2.75 K/mm3 (1.7-7.2); Neutrophils Percent Manual 61 % (46-73); Platelet Estimate Adequate (Adequate); Total Cells Counted 100
[2021-01-28 17:17] LABS: Glucose Point of Care 167 mg/dl (65-105)
[2021-01-28 17:18] LABS: Hypochromasia 1+ (NORMAL)
[2021-01-28] MEDS: CENTRAL LINE FLUSH 10 ML IV PUSH ×2 (18:19→21:06)
[2021-01-28] MEDS: HEPARIN SODIUM 5,000 UNITS/ML VIAL 5000 UNITS SUB-Q (21:04)
[2021-01-28] MEDS: MINERAL OIL/WHITE PETROLATUM OINTMENT 1 APPLIC EACH EYE (21:04)
[2021-01-28] MEDS: HYDROCORTISONE SODIUM SUCCINATE 100 MG/2 ML VIAL IV PUSH (21:06)
[2021-01-28] MEDS: NOREPINEPHRINE 8 MG/D5W 250 ML 8 MG/250 ML BAG 37.5 MG IV CONT (21:07)
[2021-01-28 21:45] LABS: Anion Gap 12 mmol/L (8-16); Blood Urea Nitrogen 69 mg/dL (7-17); Carbon Dioxide 21 mmol/L (22-30); Chloride 106 mmol/L (98-107); Estimated CRCL calculation 19 ml/min; Estimated Glomerular Filt Rate 13; Glucose 264 mg/dL (65-110); Potassium 4.1 mmol/L (3.4-5.0); Sodium 139 mmol/L (137-145)
[2021-01-28 21:48] LABS: Glucose Point of Care 190 mg/dl (65-105)
[2021-01-28 21:59] LABS: Lactic Acid Reflex 5.6 mmol/L (0.7-2.1)
[2021-01-29] VITALS (56 sets, daily range): BP systolic 63–146; BP diastolic 31–82; PULSE 20–160; RESP 20–112; TEMP 36.6–38.4; O2SAT 95–99
[2021-01-29] MEDS: INSULIN ASPART (*BKC) 100 UNITS/ML SUB-Q ×6 (00:13→20:00)
[2021-01-29] MEDS: SODIUM CHLORIDE 0.9% IV 1,000 ML 125 ML IV CONT (00:13)
[2021-01-29 00:26] LABS: Glucose Point of Care 210 mg/dl (65-105)
[2021-01-29 01:54] LABS: Anion Gap 16 mmol/L (8-16); Blood Urea Nitrogen 71 mg/dL (7-17); Calcium 8.8 mg/dL (8.4-10.2); Carbon Dioxide 18 mmol/L (22-30); Chloride 108 mmol/L (98-107); Estimated CRCL calculation 18 ml/min; Estimated Glomerular Filt Rate 13; Glucose 265 mg/dL (65-110); Potassium 4.3 mmol/L (3.4-5.0); Sodium 142 mmol/L (137-145)
[2021-01-29] MEDS: NOREPINEPHRINE 8 MG/D5W 250 ML 8 MG/250 ML BAG 56.25 MG IV CONT (03:17)
[2021-01-29] MEDS: CENTRAL LINE FLUSH 10 ML IV PUSH ×4 (04:32→22:03)
[2021-01-29 04:38] LABS: Reflex Lactic Acid Yes or No Add Lactic
[2021-01-29] MEDS: HYDROCORTISONE SODIUM SUCCINATE 100 MG/2 ML VIAL IV PUSH ×3 (04:59→22:03)
[2021-01-29 05:16] LABS: Glucose Point of Care 231 mg/dl (65-105)
[2021-01-29 05:23] LABS: Hematocrit 33.2 % (37.0-47.0); Hemoglobin 10.6 g/dL (12.0-15.0); Mean Corpuscular HGB Conc 31.9 g/dl (32-36); Mean Corpuscular Hemoglobin 31.3 pg (26-34); Mean Corpuscular Volume 97.9 fl (80-100); Mean Platelet Volume 11.2 fl (7.4-10.4); Platelet Count Result 150 k/mm3 (150-375); Red Blood Count 3.39 M/mm3 (4.2-5.4); Red Cell Distribution Width 14.8 % (11.5-14.5); White Blood Count 14.3 K/mm3 (4.5-10.0)
[2021-01-29 05:41] LABS: Alanine Aminotransferase 337 U/L (4-35); Albumin Level 2.9 g/dL (3.5-5.1); Alkaline Phosphatase 330 U/L (38-126); Anion Gap 16 mmol/L (8-16); Aspartate Amino Transferase 702 U/L (14-36); Band Neutrophils Percent 16 % (0-6); Blood Urea Nitrogen 72 mg/dL (7-17); Calcium 8.6 mg/dL (8.4-10.2); Carbon Dioxide 17 mmol/L (22-30); Chloride 107 mmol/L (98-107); Estimated CRCL calculation 17 ml/min; Estimated Glomerular Filt Rate 11; Glucose 313 mg/dL (65-110); Large Platelets Present; Lymphocytes Absolute Manual 0.71 K/mm3 (1.1-4.5); Magnesium 1.8 mg/dL (1.6-2.3); Monocytes Absolute Manual 0.42 K/mm3 (0.1-0.90); Monocytes Percent Manual 3 % (3-9); Neutrophils Absolute Manual 13.15 K/mm3 (1.7-7.2); Neutrophils Percent Manual 76 % (46-73); Ovalocytes 1+ (NORMAL); Platelet Estimate Adequate (Adequate); Potassium 4.4 mmol/L (3.4-5.0); Sodium 140 mmol/L (137-145); Total Cells Counted 100
[2021-01-29 05:53] LABS: Base Excess ABG -10.8 mEq/l (+/-2.0); Carboxyhemoglobin 0.3 % THb (0-2.0); Fractional Inspired Oxygen 60 %; HCO3 ABG 14.3 mEq/l (22.0-26.0); Methemoglobin ABG 0.2 %THb (0-1.5); Oxygen Saturation ABG 98.7 % (95.0-100.0); Oxyhemoglobin 97.2 % THb (90.0-100.0); PCO2 ABG 29.8 mmHg (35.0-45.0); PO2 FiO2 Ratio Arterial Blood 2.43 %; Reduced Hemoglobin 2.3 %THb (0-5.0); Total Hemoglobin 11.5 g/dL (12.0-18.0)
[2021-01-29 05:54] LABS: Site Drawn RIGHT BRACHIAL
[2021-01-29 05:55] LABS: Arterial Blood Gas Ventilator rate 20 /MIN; Device VENTILATOR
[2021-01-29 05:56] LABS: Arterial Blood Gas PEEP 5 cmH2O; Arterial Blood Gas Tidal Volume 450 ml; Arterial Blood Gas Vent Mode CMV
[2021-01-29] MEDS: SODIUM BICARBONATE 8.4% 50 MEQ/50 ML SYRINGE IV PUSH ×2 (06:08)
--- NOTE | 2021-01-29 07:24 | ECG_ITS ---
Measurements Intervals [place] Rate: 106 P: 0 KS: 185 QRS: 78 QRSD: 86 T: 19 QT: 318 QTc: 423 Interpretive Statements SINUS OR ECTOPIC ATRIAL TACHYCARDIA BORDERLINE R WAVE PROGRESSION, ANTERIOR LEADS MINIMAL Q WAVES- INFERIOR LEADS BORDERLINE T WAVE ABNORMALITY- INFERIOR LEADS BASELINE WANDER- V3-V6 ABNORMAL ECG Electronically Signed On 01-29-2021 19:40:35 INTERVENTIONAL RADIOLOGY TECHNOLOGIST by Chuy Eaton D.O.
--- NOTE | 2021-01-29 07:34 | PM.CNCAR ---
Assessment and Plan Additional Plan 65-year-old lady with type 2 myocardial infarction in the setting of urosepsis. Cultures are yet pending in terms of the identity of this organism. Caio pus was returned from her left ureter in the operating room as mentioned above. She is requiring some aggressive pressor support in the ICU at this time. Her ECG does not demonstrate any evidence of acute myocardial injury her troponin levels are elevated this is in this setting due to the stress of sepsis rather than to an acutely obstructed coronary artery. Because she is requiring pressor support at this time there was no ability to initiate medical therapy for the potential of coronary artery disease. We will follow her closely with you and initiate some medical therapy when he can. Once she is more stable and extubated an echocardiogram would be useful to assess for regional wall motion abnormalities. Abe Tanner MD [facility] History of Present Illness History of Present Illness Consult date/time: 01/29/21 07:34 Reason For Visit: Sepsis, UTI, Kidney Stones, EKI Narrative: This is a 65-year-old per patient I am seeing at the request of the hospitalist this morning because of elevated troponin level. Patient is intubated in ICU room 7. And is therefore not capable of providing any direct history. According to the records she was brought to thei Emergency Room after she was found lying on the floor in her residence by her family in and incoherent semi responsive state. The patient appeared to be in septic shock has been found to have left pyelonephritis she was taken emergently to the operating room by the urologist on-call and underwent a left pyelogram and in the left ureter there was caio pus returned when the ureter was opened and stented. There was a obstructing stone I believe and patient was then taken to the ICU for further evaluation and management. She according to the records was not reporting any chest pain to the family recently or prior to being found unresponsive. Her electrocardiogram shows an accelerated junctional rhythm but no acute ST segment and T-wave abnormality currently on telemetry she is in a sinus tachycardia. Troponin levels were done in this setting they are moderately elevated but relatively flat. She was placed on aggressive pressor support and in this setting is being seen in consultation. According to the records her per medical comorbidities include hypertension and non insulin-dependent diabetes as well as morbid obesity. Review of Systems Review of Systems: ROS unobtainable: Yes unobtainable due to endotracheal tube and unobtainable due to medical condition PMFSH Past Medical History Medical History (Updated 01/28/21 @ 15:31 by Mj Suarez MD) Diabetes Hyperlipidemia Hypertension Urinary tract infection Frequent Surgical History Surgical History (Updated 01/28/21 @ 17:06 by Elizabeth Segura NP) H/O breast biopsy H/O cystoscopy History of 2 sections History of removal of ovarian cyst Family History Family History (Updated 01/28/21 @ 17:07 by Elizabeth Segura NP) Father Hypertension Diabetes mellitus Parkinsons Mother Heart disease Hypertension Social History Social History (Updated 01/28/21 @ 17:07 by Elizabeth Segura NP) Social History: The patient has 2 sons. Her son Heri is the durable power underwater welder for healthcare. 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 She is . Patient is a lifelong nonsmoker. She does not use any alcohol marijuana or illicit drugs. Code status full code Smoking status: Never smoker Alcohol intake: never Substance use: never Living arrangements: alone Gender identity (if verbalized by the patient): Female Spiritual care concerns: No Meds Home Medications and Allergies Home Medications Medication Instructions Recorded Confirmed Type atorvastatin 10 mg PO DAILY 01/28/21 1
[2021-01-29] MEDS: MINERAL OIL/WHITE PETROLATUM OINTMENT 1 APPLIC EACH EYE ×2 (08:14→20:01)
[2021-01-29] MEDS: PANTOPRAZOLE SODIUM IV 40 MG VIAL IV PUSH (08:15)
[2021-01-29] MEDS: NOREPINEPHRINE 8 MG/D5W 250 ML 8 MG/250 ML BAG 46.88 MG IV CONT (08:30)
[2021-01-29 08:36] LABS: Glucose Point of Care 252 mg/dl (65-105)
[2021-01-29] MEDS: SODIUM BICARBONATE 8.4% 150 MEQ in WATER, STERILE FOR INJECTION 950 ML 100 MEQ IV CONT ×2 (08:49→18:39)
[2021-01-29] MEDS: HEPARIN SODIUM 5,000 UNITS/ML VIAL 5000 UNITS SUB-Q ×2 (08:50→20:00)
[2021-01-29] MEDS: FENTANYL 2,500MCG/NS250ML(*CRX 2,500 MCG/250 ML BAG IV CONT (08:50)
--- NOTE | 2021-01-29 10:28 | WPDANESPN ---
Anes - Prog Note Post-Op Date/Time: 01/29/21 10:28 Cardiovascular status: normal Respiratory status: normal Airway patency: baseline Mental status: baseline Post-Op hydration status: normal Vital Signs: Last Vital Signs Temp 38.4 C H 01/29/21 10:00 Pulse 113 H 01/29/21 10:00 Resp 20 01/29/21 10:00 BP 121/67 01/29/21 10:00 Pulse Ox 98 01/29/21 10:00 Pain Score (VAS): 0 I/O: Intake & Output 01/28/21 01/29/21 01/29/21 23:59 07:59 15:59 Intake Total 3450 2082 623 Output Total 185 348 Balance 3265 5847 623 Laboratory Tests 01/29/21 04:57 01/29/21 04:57 01/28/21 01/28/21 01/28/21 10:30 10:31 10:31 WBC 0.6 L* RBC 4.13 L Hgb 12.7 Hct 40.8 MCV 98.8 MCH 30.8 MCHC 31.1 L RDW 14.1 Plt Count 161 MPV 10.1 Immature Gran % (Auto) 16.4 H Neut % (Auto) 52.7 Lymph % (Auto) 29.1 Cotton % (Auto) 1.8 L Eos % (Auto) 0.0 Baso % (Auto) 0.0 L Lymph # (Auto) 0.16 L Cotton # (Auto) 0.0 L Eos # (Auto) 0.0 Baso # (Auto) 0.0 Abs Immat Gran (auto) 0.09 H Absolute Neuts (auto) 0.3 L Absolute Nucleated RBC 0.0 Total Counted Neutrophils % (Manual) Band Neutrophils % Lymphocytes % (Manual) Monocytes % (Manual) Metamyelocytes % Nucleated RBC % 0.0 Abs Neuts (Manual) Abs Lymphs (Manual) Abs Monocytes (Manual) Platelet Estimate Large Platelets Hypochromasia Ovalocytes PT 15.1 H INR 1.2 APTT 33.3 D-Dimer 16.61 H Puncture Site ABG pH ABG pCO2 ABG pO2 ABG PO2/FiO2 Ratio ABG HCO3 ABG O2 Saturation ABG O2 Content ABG Base Excess A-a Gradient Oxyhemoglobin Carboxyhemoglobin Methemoglobin Reduced Hemoglobin Total Hemoglobin O2 Delivery Device O2 Liters/Min Minute Volume Vent Rate Vent Mode FiO2 Tidal Volume PEEP Peak Inspir Pressure Pressure Support Sodium Potassium Chloride Carbon Dioxide Anion Gap BUN Creatinine Estim Creat Clear Calc Estimated GFR Glucose POC Capillary Glucose Hemoglobin A1c Lactic Acid Calcium Magnesium Total Bilirubin AST ALT Alkaline Phosphatase Ammonia Troponin I Total Protein Albumin Lipase Beta-Hydroxybutyrate/Acetoacetate Urine Color Debi Urine Appearance Cloudy H Urine pH 5.0 Ur Specific [place] 1.023 Urine Protein 2+ H Urine Glucose (UA) Negative Urine Ketones Negative Ur Blood (Man) Negative Urine Nitrate Negative Urine Bilirubin Negative Urine Urobilinogen 2.0 H Leukocyte Esterase Rfl 3+ H Urine RBC 11-20 H Urine WBC >75 H Urine WBC Clumps Present H Ur Squamous Epith Cells Occasional Urine Bacteria Trace Hyaline Casts 50+ H Urine Mucus Heavy H SARS-CoV-2 RNA (RT-PCR) 01/28/21 01/28/21 01/28/21 10:31 11:27 11:27 WBC RBC Hgb Hct MCV MCH MCHC RDW Plt Count MPV Immature Gran % (Auto) Neut % (Auto) Lymph % (Auto) Cotton % (Auto) Eos % (Auto) Baso % (Auto) Lymph # (Auto) Cotton # (Auto) Eos # (Auto) Baso # (Auto) Abs Immat Gran (auto) Absolute Neuts (auto) Absolute Nucleated RBC Total Counted Neutrophils % (Manual) Band Neutrophils % Lymphocytes % (Manual) Monocytes % (Manual) Metamyelocytes % Nucleated RBC % Abs Neuts (Manual) Abs Lymphs (Manual) Abs Monocytes (Manual) Platelet Estimate Large Platelets Hypochromasia Ovalocytes PT INR APTT D-Dimer Puncture Site ABG pH ABG pCO2 ABG pO2 ABG PO2/FiO2 Ratio ABG HCO3 ABG O2 Saturation ABG O2 Content ABG Base Excess A-a Gradient Oxyhemoglobin Carboxyhemoglobin Methemoglobin Reduced Hemoglobin Total Hemoglobin O2 Delivery Device O2 Liters/Min Minute Volume Vent R
[2021-01-29 12:12] LABS: Glucose Point of Care 294 mg/dl (65-105)
--- NOTE | 2021-01-29 12:57 | WPDINTPN ---
Progress Note: A&P Assessment and Plan (1) Septic shock: Code(s): A41.9 - Sepsis, unspecified organism; R65.21 - Severe sepsis with septic shock Status: Acute Assessment and Plan: Severe sepsis secondary to UTI, kidney stone, instrumentation 01/28/2021: Blood cultures growing Gram-negative bacilli to 1 of 2 bottles -01/28/2021: Urine cultures pending -continue imipenem Patient did receive adequate amount of fluids since admission, despite which the blood pressures remain low and was started on Levophed. -currently on Levophed and Waqas-Synephrine, vasopressin this turned off -need to maintain mean arterial pressures > 70 mmHg for adequate renal and end organ perfusion -worsening creatinine, lactic acid and LFTs likely related to decreased end organ perfusion (2) Urinary tract infection: Qualifiers: Hematuria presence: without hematuria Urinary tract infection type: site unspecified Qualified Code(s): N39.0 - Urinary tract infection, site not specified Code(s): N39.0 - Urinary tract infection, site not specified Status: Acute Assessment and Plan: See above (3) PEREZ (acute kidney injury): Code(s): N17.9 - Acute kidney failure, unspecified Status: Acute Assessment and Plan: Likely secondary to sepsis and obstruction leading to hydronephrosis. Patient also on diuretics and Tyrell inhibitor which are on hold CT reviewed. -status post left ureteral stent placed by Urology Continue eye maintenance IV fluids with bicarbonate -obtain urine lytes Monitor urine output creatinine electrolytes (4) Calculus of left kidney: Code(s): N20.0 - Calculus of kidney Status: Acute Assessment and Plan: CT MPRESSION: 1. Bilateral nephrolithiasis with obstructing 5-6 mm proximal left ureteral stone with mild left hydroureteronephrosis. Status post cystoscopy, left retrograde pyelogram and left ureteral stent placement on 01/28/2021 -urology following the patient (5) Transaminitis: Code(s): R74.01 - Elevation of levels of liver transaminase levels Status: Acute Assessment and Plan: Likely secondary to shock. Hold statin Monitor levels (6) Encephalopathy: Code(s): G93.40 - Encephalopathy, unspecified Status: Acute Assessment and Plan: Patient is intubated, awake, follows simple commands Head CT negative Currently intubated with adequate ABGs (7) Elevated troponin: Code(s): R77.8 - Other specified abnormalities of plasma proteins Status: Acute Assessment and Plan: Likely type 2 non STEMI from sepsis. EKG reviewed and shows no ST elevation. Serial troponin continue aspirin Check echo once more stable Appreciate cardiology evaluation (8) Hyperkalemia: Code(s): E87.5 - Hyperkalemia Status: Acute Assessment and Plan: Resolved: Secondary to acidosis DKA and PEREZ Adequately fluid resuscitated Repeat BMP in 4 hours (9) DKA (diabetic ketoacidosis): Code(s): E11.10 - Type 2 diabetes mellitus with ketoacidosis without coma Status: Acute Assessment and Plan: Hyperglycemia: Will add lantus, and continue High dose SSI and accucheks continue IV fluids Patient will be NPO at this time Additional Plan DVT prophylaxis -subQ heparin Nutrition -NPO at this Code Status - Full Code as per her son Total Critical Care Time - 37 minutes Due to a high probability of clinically significant, life threatening deterioration, the patient required my highest level of preparedness to intervene emergently and I personally spent this critical care time directly and personally managing the patient. This critical care time included obtaining a history; examining the patient; pulse oximetry; ordering and review of studies; arranging urgent treatment with development of a management plan; evaluation of patient's response to treatment; frequent reassessment; and discussions with other provide
[2021-01-29] MEDS: hetaSTARCH 6%/NACL 500 ML 250 ML IV CONT (14:26)
[2021-01-29] MEDS: NOREPINEPHRINE 8 MG/D5W 250 ML 8 MG/250 ML BAG 37.5 MG IV CONT (14:40)
[2021-01-29] MEDS: INSULIN GLARGINE (*BKC) 100 UNITS/ML 15 UNITS SUB-Q (14:58)
[2021-01-29 15:15] LABS: Creatine Kinase 747 U/L (30-135)
[2021-01-29 15:17] LABS: Lactic Acid Reflex 4.9 mmol/L (0.7-2.1)
[2021-01-29 15:41] LABS: Creatinine Urine 108.8 mg/dL
[2021-01-29 15:46] LABS: CRP > 45.0 mg/dL (<1.0)
[2021-01-29 15:46] LABS: Potassium Urine Random 25.6 meq/L; Sodium Urine Random 94 meq/L
[2021-01-29 15:59] LABS: Anion Gap 16 mmol/L (8-16); Blood Urea Nitrogen 79 mg/dL (7-17); Calcium 8.5 mg/dL (8.4-10.2); Carbon Dioxide 21 mmol/L (22-30); Chloride 104 mmol/L (98-107); Estimated CRCL calculation 16 ml/min; Estimated Glomerular Filt Rate 11; Glucose 328 mg/dL (65-110); Potassium 4.9 mmol/L (3.4-5.0); Sodium 141 mmol/L (137-145)
--- NOTE | 2021-01-29 16:18 | PM.CNNEP ---
Assessment and Plan Assessment and plan (1) PEREZ (acute kidney injury): Code(s): N17.9 - Acute kidney failure, unspecified Status: Acute Assessment and Plan: multifactorial ATN: - sepsis/infection (UTI) - obstruction/hydronephrosis - concurrent ALICE-I and diuretic use prior to admission s/p left ureteral stent placement by Urology IVF resuscitation imaging studies noted to date follow repeat labs and UOP remains at risk for needing renal replacement therapy/dialysis (2) Septic shock: Code(s): A41.9 - Sepsis, unspecified organism; R65.21 - Severe sepsis with septic shock Status: Acute Assessment and Plan: due to combination of UTI, nephrolithiasis, and instrumentation blood culture positive ofr GNB urine culture pending on pressor therapy - wean as tolerated continue IV antibiotics (3) Acute respiratory failure: Code(s): J96.00 - Acute respiratory failure, unspecified whether with hypoxia or hypercapnia Status: Acute Assessment and Plan: due to encephalopathy continue mechanical ventilation wean as tolerated (4) Urinary tract infection: Qualifiers: Hematuria presence: without hematuria Urinary tract infection type: site unspecified Qualified Code(s): N39.0 - Urinary tract infection, site not specified Code(s): N39.0 - Urinary tract infection, site not specified Status: Acute Assessment and Plan: see #2 follow-up on urine culture (5) Hyperkalemia: Code(s): E87.5 - Hyperkalemia Status: Acute Assessment and Plan: resolved likely due to PEREZ and acidosis along with hyperglycemia follow repeat levels (6) Elevated troponin: Code(s): R77.8 - Other specified abnormalities of plasma proteins Status: Acute Assessment and Plan: Cardiology recommendations noted continue supportive care (7) Diabetes: Code(s): E11.9 - Type 2 diabetes mellitus without complications Status: Acute Assessment and Plan: follow accuchecks glycemic control Will continue to follow. History of Present Illness Reason for Consult Consult date: 01/29/21 Reason for consult: acute renal failure Chief Complaint Chief complaint: Sepsis, UTI, Kidney Stones, EKI History of Present Illness Narrative: Most of the information I have obtained is from review of the electronic medical record as well as discussion with the physicians/ nurses involved in her care as she is unable to provide me with any history as she is currently intubated/sedated and on mechanical ventilation. The patient is a 65-year-old female with a past medical history as outlined below who initially presented to [facility] Emergency room for further evaluation of altered mental status. Her son provided most of the history to the ER physician and medical staff on initial presentation. The day prior to admission, the patient's son stated that she had been experiencing some chills and shaking along confusion. Other associated symptoms included constipation in association with nausea. She subsequent start having issues and problems with hyperglycemia but did improve with supplemental insulin administration. On the day of admission, her son attempted to get in contact with the patient but she was not answering her phone. He subsequently went to her home and found her laying on her side and acutely confused. He subsequent call 911 /[email or web address] for assistance. Upon presentation to the emergency room she will remained acutely confused and subsequently developed significant/severe hypotension. she was started on aggressive IV fluid resuscitation and subsequent blood test demonstrated a low white blood cell count, elevated BUN and creatinine above her baseline, lactic acidosis, hyperglycemia, and elevated liver function tests as well as an elevated troponin. Her urinalysis
--- NOTE | 2021-01-29 16:20 | WPDUROPN2 ---
Progress Note: A&P Assessment and Plan (1) Septic shock: Code(s): A41.9 - Sepsis, unspecified organism; R65.21 - Severe sepsis with septic shock Status: Acute Assessment and Plan: Continue IV antibiotics, no further evaluation at this time. Patient isn't producing much urine, and creatinine is elevating despite stent placement. Dr. Suarez and I spoke and he agrees that there is nothing more we can do at this point as the stent is in place and draining. Nephrology has been consulted. The kamara has been irrigated by the RN at the bedside and does drain easily, however very little urine output is noted. (2) Left ureteral calculus: Code(s): N20.1 - Calculus of ureter Status: Acute Assessment and Plan: Pending hospital course and patient's outcome, we will plan definitive stone surgery as an outpatient. Nothing further to do at this time. Subjective Subjective Date/Time Seen: 01/29/21 16:20 POD #1 Cystoscopy, left stent, left retrograde pyelogram. Patient is declining despite aggressive measures. Her feet bilateral are dusky, cold and modeled. She continues to be tachycardic, is now febrile, creatinine is increasing despite stent placement is now >4.0. WBC is also elevated at 14.3 up from 3.1 yesterday. She is sedated and intubated. Review of Systems Review of Systems: ROS unobtainable: Yes unobtainable due to endotracheal tube Exam Resp: Effort & Inspection: normal respiratory effort (patient is ventilated) Cardio: Rate: tachycardic GI: GI Palp: Yes Soft to palpation Urinary Catheter: Urinary Catheter: patent and draining, urine cloudy and urine dark Extrem: General: edema and other (bilateral toes are dusky in appearnce, cold to touch) Objective Data Vital Signs Vital Signs: Vital Signs - 24 hr 01/28/21 16:45 01/28/21 16:58 01/28/21 17:01 Temperature Pulse Rate 113 H 112 H 112 H Respiratory Rate 20 20 Blood Pressure 106/92 H 98/62 L Pulse Oximetry 97 98 96 01/28/21 17:03 01/28/21 17:36 01/28/21 17:45 Temperature 99.8 F H Pulse Rate 110 H 108 H Respiratory Rate Blood Pressure 126/67 122/69 Pulse Oximetry 01/28/21 18:00 01/28/21 18:15 01/28/21 18:24 Temperature Pulse Rate 106 H Respiratory Rate 20 Blood Pressure 122/70 110/60 Pulse Oximetry 97 97 01/28/21 18:31 01/28/21 19:58 01/28/21 19:59 Temperature Pulse Rate 106 H 106 H Respiratory Rate Blood Pressure 112/68 110/58 L 110/58 L Pulse Oximetry 01/28/21 20:00 01/28/21 20:12 01/28/21 21:04 Temperature 100.3 F H Pulse Rate 106 H 105 H 106 H Respiratory Rate 20 Blood Pressure 109/69 106/59 L Pulse Oximetry 97 98 01/28/21 21:07 01/28/21 22:00 01/28/21 22:22 Temperature Pulse Rate 103 H 106 H 106 H Respiratory Rate 20 Blood Pressure 106/59 L 81/56 L 81/56 L Pulse Oximetry 96 01/28/21 22:43 01/28/21 23:24 01/29/21 00:00 Temperature Pulse Rate 108 H 110 H 110 H Respiratory Rate 20 Blood Pressure 88/58 L 81/66 L Pulse Oximetry 95 97 01/29/21 01:00 01/29/21 01:43 01/29/21 01:45 Temperature Pulse Rate 112 H 112 H 113 H Respiratory Rate 20 21 H Blood Pressure 80/68 L 67/53 L 108/63 Pulse Oximetry 97 97 01/29/21 02:00 01/29/21 03:12 01/29/21 03:17 Temperature Pulse Rate 116 H 115 H 118 H Respiratory Rate 21 H Blood Pressure 96/80 L 63/52 L 78/40 L Pulse Oximetry 97 01/29/21 04:00 01/29/21 04:28 01/29/21 04:33 Temperature 99.4 F Pulse Rate 118 H 118 H 118 H Respiratory Rate 20 Blood Pressure 93/78 L 91/43 L 99/31 L Pulse Oximetry 96 01/29/21 04:36 01/29/21 04:37 01/29/21 04:50 Temperature Pulse Rate 118 H 118 H 118 H Respiratory Rate Blood Pressure 99/31 L 99/31 L Pulse Oximetry 96 01/29/21 06:00 01/29/21 06:10 01/29/21 07:35 Temperature Pulse Rate 117 H 116 H 112 H Respiratory Rate 24 H Blood Pressure 100/54 L 78/37 L 137/54 L Pulse Oximetry 99 01/29/21 07:4
[2021-01-29 17:05] LABS: Eosinophil Urine None Seen % (None Seen)
[2021-01-29 17:09] LABS: Glucose Point of Care 232 mg/dl (65-105)
[2021-01-29 17:52] LABS: Reflex Lactic Acid Yes or No Add Lactic
[2021-01-29 19:00] LABS: SARS-CoV-2 RNA PCR Negative
[2021-01-29 19:13] LABS: Lactic Acid 4.1 mmol/L (0.7-2.1)
[2021-01-29 19:57] LABS: Glucose Point of Care 229 mg/dl (65-105)
[2021-01-30] VITALS (44 sets, daily range): BP systolic 85–132; BP diastolic 51–73; PULSE 67–96; RESP 22; TEMP 36.4–37.9; O2SAT 94–97; BMI 41.1
--- NOTE | 2021-01-30 | ECHO_ITS ---
Patient Info Name: Isamar Sarabia Age: 65 years : 1955 Gender: Female Ht: 67 in Wt: 239 lbs BSA: 2.31 m2 HR: 74 bpm BP: 114 / 58 mmHg Heart Rhythm: Sinus Rhythm Exam Date: 01/30/2021 8:47 AM Exam Location: [facility] Patient Status: Inpatient Admit Date: 01/28/2021 Staff Ordering Physician: Levar Carbone MD [place] [facility] [place]: Rafi Mcneil, ESTELLA, RT Attending Provider: Alissa Mosher MD Exam Type: CA echo dop color flow w con Study Info Indications I50.9 - Heart failure, unspecified Complete two-dimensional, color flow and Doppler transthoracic echocardiogram is performed with contrast to opacify the left ventricle and to improve the deliniation of the left ventricle endocardial borders. Summary 1. Normal left ventricular size with moderate concentric hypertrophy. Good systolic function of all segments with no segmental wall motion abnormalities. Ejection fraction 60-65%. Grade 2 diastolic dysfunction is present. 2. Right ventricular chamber dimension is mildly enlarged with probably mild hypokinesis, although not well visualized. 3. There is mild tricuspid valve regurgitation. 4. There is minimal mitral valve stenosis due to the severe annular calcification with mild mitral regurgitation. Mean gradient only 4 mm Hg. 5. Dilated inferior vena cava with no collapse upon inspiration consistent with elevated right atrial pressure, 15 mmHg. 6. Moderate pulmonary hypertension, estimated pulmonary arterial systolic pressure is 48 mmHg. 7. Normal sinus rhythm. Left Ventricle Left ventricular chamber dimension is normal. Left ventricular systolic function is normal, estimated at 60-65%. There is moderately increased left ventricular wall thickness. Left ventricular septal wall motion is normal. The left ventricular diastolic function is grade II diastolic dysfunction. Right Ventricle Right ventricular chamber dimension is mildly enlarged with probably mild hypokinesis, although not well visualized. Right ventricular systolic function is normal. Left Atria Left atrial chamber dimension is moderately enlarged. Right Atria Right atrial chamber dimension is normal. Aortic Valve The aortic valve is trileaflet. There is no aortic valve sclerosis. There is no aortic valve stenosis. There is no aortic valve regurgitation. Pulmonic Valve The pulmonic valve is normal. There is no pulmonic valve stenosis. There is trace pulmonic regurgitation. Mitral Valve The mitral valve has normal leaflets and thickened leaflets. There is minimal mitral valve stenosis due to the severe annular calcification with mild mitral regurgitation. Mean gradient only 4 mm Hg. There is mild mitral valve regurgitation. The mitral valve annulus is severely calcified. Tricuspid Valve The tricuspid valve leaflets are normal. There is no significant tricuspid valve stenosis. There is mild tricuspid valve regurgitation. Moderate pulmonary hypertension, estimated pulmonary arterial systolic pressure is 48 mmHg. Pericardium/Pleural The pericardium appears normal. There is no pericardial effusion. Inferior Vena Cava Dilated inferior vena cava with no collapse upon inspiration consistent with elevated right atrial pressure, 15 mmHg. Aorta The aortic root size at the sinus of Valsalva is normal. The prox ascending aorta size is normal. Left Ventricular Outflow Tract Name
[2021-01-30] MEDS: NOREPINEPHRINE 8 MG/D5W 250 ML 8 MG/250 ML BAG 15 MG IV CONT (00:22)
[2021-01-30 00:32] LABS: Glucose Point of Care 192 mg/dl (65-105)
[2021-01-30] MEDS: SODIUM BICARBONATE 8.4% 150 MEQ in WATER, STERILE FOR INJECTION 950 ML 100 MEQ IV CONT (04:04)
[2021-01-30 04:35] LABS: Glucose Point of Care 193 mg/dl (65-105)
[2021-01-30 04:49] LABS: Alveolar/Arterial O2 Gradient 78.1 mmHg; Carboxyhemoglobin 0.3 % THb (0-2.0); Device VENTILATOR; Fractional Inspired Oxygen 30 %; HCO3 ABG 25.1 mEq/l (22.0-26.0); Methemoglobin ABG 0.1 %THb (0-1.5); Oxygen Content ABG 14.3 %vol (16.0-22.0); Oxygen Saturation ABG 97.9 % (95.0-100.0); Oxyhemoglobin 95.6 % THb (90.0-100.0); PCO2 ABG 33.5 mmHg (35.0-45.0); PO2 ABG 96.4 mmHg (80.0-100.0); PO2 FiO2 Ratio Arterial Blood 3.21 %; Site Drawn RIGHT BRACHIAL; Total Hemoglobin 10.5 g/dL (12.0-18.0); pH ABG 7.492 (7.350-7.450)
[2021-01-30 04:50] LABS: Arterial Blood Gas PEEP 5 cmH2O; Arterial Blood Gas Tidal Volume 450 ml; Arterial Blood Gas Vent Mode CMV; Arterial Blood Gas Ventilator rate 22 /MIN
[2021-01-30 05:08] LABS: Hematocrit 28.5 % (37.0-47.0); Hemoglobin 9.4 g/dL (12.0-15.0); Mean Corpuscular Volume 94.1 fl (80-100); Mean Platelet Volume 10.8 fl (7.4-10.4); Platelet Count Result 98 k/mm3 (150-375); Red Blood Count 3.03 M/mm3 (4.2-5.4); Red Cell Distribution Width 14.9 % (11.5-14.5)
[2021-01-30 05:24] LABS: Alanine Aminotransferase 425 U/L (4-35); Albumin Level 2.6 g/dL (3.5-5.1); Alkaline Phosphatase 314 U/L (38-126); Anion Gap 10 mmol/L (8-16); Aspartate Amino Transferase 449 U/L (14-36); Bilirubin,Total 2.4 mg/dL (0.2-1.3); Blood Urea Nitrogen 90 mg/dL (7-17); Calcium 7.4 mg/dL (8.4-10.2); Carbon Dioxide 29 mmol/L (22-30); Chloride 99 mmol/L (98-107); Estimated CRCL calculation 14 ml/min; Estimated Glomerular Filt Rate 9; Glucose 213 mg/dL (65-110); Magnesium 1.9 mg/dL (1.6-2.3); Phosphorus 3.6 mg/dL (2.5-4.5); Potassium 4.5 mmol/L (3.4-5.0); Sodium 138 mmol/L (137-145)
[2021-01-30 05:26] LABS: Lactic Acid Reflex 2.6 mmol/L (0.7-2.1)
[2021-01-30] MEDS: HYDROCORTISONE SODIUM SUCCINATE 100 MG/2 ML VIAL IV PUSH ×3 (05:41→22:06)
[2021-01-30] MEDS: CENTRAL LINE FLUSH 10 ML IV PUSH ×4 (05:41→22:07)
[2021-01-30 08:05] LABS: Reflex Lactic Acid Yes or No Add Lactic
[2021-01-30 08:40] LABS: Lactic Acid 2.6 mmol/L (0.7-2.1)
--- NOTE | 2021-01-30 08:43 | WPDUROPN2 ---
Progress Note: A&P Assessment and Plan (1) Septic shock: Code(s): A41.9 - Sepsis, unspecified organism; R65.21 - Severe sepsis with septic shock Status: Acute Assessment and Plan: FAUSTO was ordered to rule out obstruction d/t increasing creatinine and BUN. It states that the left kidney and ureter aren't well visualized and hydronephrosis cannot be excluded. After discussion with Dr. Suarez we will do a CT without contrast, and if hydro is present, she will need a left percutaneous nephrostomy tube placed. (2) Left ureteral calculus: Code(s): N20.1 - Calculus of ureter Status: Acute Assessment and Plan: Will ensure stent is place and draining. Stone isn't visible on FAUSTO, will not treat stone at this time. Will address stone as an outpatient pending patient's hospital course. (3) Urinary tract infection: Qualifiers: Hematuria presence: without hematuria Urinary tract infection type: site unspecified Qualified Code(s): N39.0 - Urinary tract infection, site not specified Code(s): N39.0 - Urinary tract infection, site not specified Status: Acute Assessment and Plan: Blood and urine cultures grew E-Coli, continue culture sensitive Imipenem. Subjective Subjective Date/Time Seen: 01/30/21 08:43 Patient is slightly improved today, she is weaning off of pressors, dusky appearance to feet is improved and she has better capillary refill today. She is still aneuric, creatinine is rising, now at 5.0 and WBC continues to rise which is now >20,000. Review of Systems Review of Systems: ROS unobtainable: Yes unobtainable due to endotracheal tube Exam Resp: Effort & Inspection: normal respiratory effort (intubated) Cardio: Rate: regular rate GI: GI Palp: Yes Soft to palpation, Yes Tenderness to palpation present (GI) (generalized) and Yes Guarding due to palpation present (GI) (she is restrained but trys to guard when I palpate her abdomen) : General: Yes no CVA tenderness Urinary Catheter: Urinary Catheter: patent and draining and urine dark Extrem: General: capillary refill delayed (Improved, dusky appearance is improved bilaterally.) and edema bilateral Objective Data Vital Signs Vital Signs: Vital Signs - 24 hr 01/29/21 08:50 01/29/21 10:00 01/29/21 10:54 Temperature 101.1 F H Pulse Rate 112 H 113 H 112 H Respiratory Rate 25 H 20 Blood Pressure 121/67 130/62 Pulse Oximetry 98 01/29/21 10:55 01/29/21 10:57 01/29/21 10:58 Temperature Pulse Rate 112 H 112 H 112 H Respiratory Rate Blood Pressure 130/62 130/62 Pulse Oximetry 98 01/29/21 12:00 01/29/21 12:25 01/29/21 14:00 Temperature 100.8 F H 100.7 F H Pulse Rate 159 H 110 H 110 H Respiratory Rate 22 H 22 H Blood Pressure 140/72 123/57 L 100/51 L Pulse Oximetry 97 97 01/29/21 14:20 01/29/21 14:21 01/29/21 14:40 Temperature Pulse Rate 107 H 112 H 112 H Respiratory Rate Blood Pressure 133/72 133/72 Pulse Oximetry 97 01/29/21 14:46 01/29/21 16:00 01/29/21 16:30 Temperature Pulse Rate 106 H 105 H 104 H Respiratory Rate 22 H Blood Pressure 146/74 H 132/71 Pulse Oximetry 96 96 01/29/21 16:52 01/29/21 17:02 01/29/21 17:03 Temperature 100.1 F H Pulse Rate 108 H 108 H Respiratory Rate Blood Pressure 117/71 117/71 Pulse Oximetry 01/29/21 17:04 01/29/21 18:00 01/29/21 19:54 Temperature 100.1 F H Pulse Rate 108 H 107 H 105 H Respiratory Rate 22 H 22 H Blood Pressure 109/64 127/63 Pulse Oximetry 96 01/29/21 19:58 01/29/21 19:59 01/29/21 20:00 Temperature 97.8 F Pulse Rate 105 H 105 H 104 H Respiratory Rate 22 H 22 H Blood Pressure 127/63 145/82 H Pulse Oximetry 96 01/29/21 20:08 01/29/21 20:15 01/29/21 20:20 Temperature Pulse Rate 103 H Respiratory Rate Blood Pressure 145/82 H 141/69 H 145/81 H Pulse Oximetry 01/29/21 20:25 01/29/21 20:28 01/29/21 20:35 Temperature Pulse R
[2021-01-30] MEDS: INSULIN GLARGINE (*BKC) 100 UNITS/ML 15 UNITS SUB-Q (08:51)
[2021-01-30] MEDS: PANTOPRAZOLE SODIUM IV 40 MG VIAL IV PUSH (08:52)
[2021-01-30] MEDS: MINERAL OIL/WHITE PETROLATUM OINTMENT 1 APPLIC EACH EYE ×2 (08:52→20:28)
[2021-01-30 09:00] LABS: Glucose Point of Care 169 mg/dl (65-105)
[2021-01-30] MEDS: PERFLUTREN LIPID MICROSPHERES 1.5 ML VIAL DILUTED TO 10 ML TOTAL VOLUME IV PUSH (09:16)
--- NOTE | 2021-01-30 10:03 | PM.PNCARD ---
Progress Note: A&P Assessment and Plan (1) Elevated troponin: Code(s): R77.8 - Other specified abnormalities of plasma proteins <RICHAR Luevano - Last Filed: 01/30/21 16:42> Status: Acute <RICHAR Luevano - Last Filed: 01/30/21 16:42> Assessment and Plan: Elevated troponin in the setting of acute illness with urosepsis. EKG without evidence of acute myocardial ischemia. Echo to be ordered when the patient is extubated to assess LV systolic function, presence of any wall motion abnormalities. Unable to initiate medical therapy for the potential of coronary artery disease at this time as the patient remains on pressor support. Will follow along and initiate medical therapy when appropriate. <RICHAR Luevano - Last Filed: 01/30/21 16:42> (2) Septic shock: Code(s): A41.9 - Sepsis, unspecified organism; R65.21 - Severe sepsis with septic shock <RICHAR Luevano - Last Filed: 01/30/21 16:42> Status: Acute <RICHAR Luevano - Last Filed: 01/30/21 16:42> Assessment and Plan: Secondary to urinary tract infection. Initially requiring pressor support with 3 agents. Now just being supported with Phenylephrine. Blood pressures are dusty. Management pe Critical Care Service. r <RICHAR Luevano - Last Filed: 01/30/21 16:42> (3) PEREZ (acute kidney injury): Code(s): N17.9 - Acute kidney failure, unspecified <RICHAR Luevano - Last Filed: 01/30/21 16:42> Status: Acute <RICHAR Luevano - Last Filed: 01/30/21 16:42> Assessment and Plan: Probably secondary to obstruction, hydronephrosis. She is status post left ureteral stent that was placed 01/28/2021. Nephrology is following. Management per Nephrology Critical Care teams. <RICHAR Luevano - Last Filed: 01/30/21 16:42> Additional Plan 01/30/2021 at 7:18 p.m. Addendum: Patient seen, chart reviewed. Remains ventilated and sedated. Had weaned off vasopressin but systolic blood pressure dropped to the 80s so now back on vasopressin. No cardiac arrhythmias. Troponins went up to 3.9. No ischemic EKG changes. ECHO: EF 60-65%, LVH, diastolic dysfunction, mild right ventricular enlargement/hypokinesis, moderate pulmonary hypertension. Assessment: Type 2 AR Septic shock, urosepsis ARF Agree with NURSE PRIVATE DUTY Inez Jewell's assessment and plan Lorri Frey MD <Aubree Frey MD - Last Filed: 01/30/21 19:22> Subjective Date/time seen: 01/30/21 10:03 cardiology follow-up for elevated troponin Date of service 01/30/2021: Patient remains intubated and sedated. Her pressor requirements are decreasing. White blood cell count has increased to 20,000. BUN and creatinine continue to worsen-90/5.0 today. <RICHAR Luevano - Last Filed: 01/30/21 16:42> Review of Systems Review of Systems: ROS unobtainable: Yes unobtainable due to endotracheal tube and unobtainable due to medical condition <RICHAR Luevano - Last Filed: 01/30/21 16:42> Exam Const: General: ill appearing <RICHAR Luevano - Last Filed: 01/30/21 16:42> Nutritional Appearance: obese <RICHAR Luevano - Last Filed: 01/30/21 16:42> Other: Morbidly obese intubated lady in the ICU sedated <RICHAR Luevano - Last Filed: 01/30/21 16:42> HENMT: Head: normal to inspection <RICHAR Luevano - Last Filed: 01/30/21 16:42> Mouth: Yes moist mucous membranes <RICHAR Luevano - Last Filed: 01/30/21 16:42> Eyes: Sclera: sclerae normal <RICHAR Luevano - Last Filed: 01/30/21 16:42> Pupils: Equal, round and reactive pupils present <RICHAR Luevano - Last Filed: 01/30/21 16:42> Neck: Neck: supple and no JVD <RICHAR Luevano - Last Filed: 01/30/21 16:42> Resp: Effort & Inspection: normal respiratory effort (Mechanically ventilated) <RICHAR Luevano - Last Filed: 01/30/21 16:42> Other: Breath sounds clear a
--- NOTE | 2021-01-30 10:55 | P.PNNP_ITS ---
Progress Note: A&P Assessment and Plan (1) PEREZ (acute kidney injury): Code(s): N17.9 - Acute kidney failure, unspecified Status: Acute Assessment and Plan: * multifactorial ATN: - sepsis/infection (UTI) - obstruction/hydronephrosis - concurrent ALICE-I and diuretic use prior to admission * bilateral nephrolithiasis with obstructing 5-6 mm proximal left ureteral stone with mild left hydroureteronephrosis by admission CT scan * status post cystoscopy, left retrograde pyelogram and left ureteral stent placement on 01/28/2021 * s/p IVF resuscitation * follow repeat labs and UOP * remains at risk for needing renal replacement therapy/dialysis (2) Septic shock: Code(s): A41.9 - Sepsis, unspecified organism; R65.21 - Severe sepsis with septic shock Status: Acute Assessment and Plan: * due to combination of UTI, nephrolithiasis, and instrumentation * blood culture with GNB (2 of 2 bottles) * urine culture with E.coli * on pressor therapy - wean as tolerated * continue IV antibiotics (3) Acute respiratory failure: Code(s): J96.00 - Acute respiratory failure, unspecified whether with hypoxia or hypercapnia Status: Acute Assessment and Plan: * due to encephalopathy * continue mechanical ventilation * wean as tolerated (4) Urinary tract infection: Qualifiers: Hematuria presence: without hematuria Urinary tract infection type: site unspecified Qualified Code(s): N39.0 - Urinary tract infection, site not specified Code(s): N39.0 - Urinary tract infection, site not specified Status: Acute Assessment and Plan: * see #2 * urine culture with E. coli (5) Hyperkalemia: Code(s): E87.5 - Hyperkalemia Status: Acute Assessment and Plan: * resolved * likely due to PEREZ and acidosis along with hyperglycemia * follow repeat levels (6) Elevated troponin: Code(s): R77.8 - Other specified abnormalities of plasma proteins Status: Acute Assessment and Plan: * Cardiology recommendations noted * continue supportive care (7) Diabetes: Code(s): E11.9 - Type 2 diabetes mellitus without complications Status: Acute Assessment and Plan: * follow accuchecks * glycemic control Will continue to follow. Subjective Date/time seen: 01/30/21 10:55 Remains intubated and sedated; following some simple commands and nods to yes/no questions; unfortunately, creatinine and urine output is declining; febrile overnight; no apparent distress noted. Exam Narrative: General: WD/WN female intubated but in NAD; awake Heart: normal S1 and S2; no rub Lungs: clear to auscultation Abdomen: soft, nontender, nondistended, positive bowel sounds Extremities: some cyanosis and trace edema noted Skin: warm and dry Objective Data Vital Signs Vital Signs: Vital Signs Temp Pulse Resp BP Pulse Ox 01/30/21 10:28 73 108/65 01/30/21 08:14 74 95 01/30/21 08:00 36.6 C 75 22 H 101/61 95 01/30/21 07:36 75 117/62 01/30/21 06:05 71 114/58 L 01/30/21 06:00 78 22 H 114/58 L 96 01/30/21 05:40 78 115/58 L 01/30/21 04:31 81 95 01/30/21 04:10 82 113/60 01/30/21 04:09 82 22 H 01/30/21 04:08 82 113/60
--- NOTE | 2021-01-30 10:55 | PM.PNNEP ---
Progress Note: A&P Assessment and Plan (1) PEREZ (acute kidney injury): Code(s): N17.9 - Acute kidney failure, unspecified Status: Acute Assessment and Plan: multifactorial ATN: - sepsis/infection (UTI) - obstruction/hydronephrosis - concurrent ALICE-I and diuretic use prior to admission bilateral nephrolithiasis with obstructing 5-6 mm proximal left ureteral stone with mild left hydroureteronephrosis by admission CT scan status post cystoscopy, left retrograde pyelogram and left ureteral stent placement on 01/28/2021 s/p IVF resuscitation follow repeat labs and UOP remains at risk for needing renal replacement therapy/dialysis (2) Septic shock: Code(s): A41.9 - Sepsis, unspecified organism; R65.21 - Severe sepsis with septic shock Status: Acute Assessment and Plan: due to combination of UTI, nephrolithiasis, and instrumentation blood culture with GNB (2 of 2 bottles) urine culture with E.coli on pressor therapy - wean as tolerated continue IV antibiotics (3) Acute respiratory failure: Code(s): J96.00 - Acute respiratory failure, unspecified whether with hypoxia or hypercapnia Status: Acute Assessment and Plan: due to encephalopathy continue mechanical ventilation wean as tolerated (4) Urinary tract infection: Qualifiers: Hematuria presence: without hematuria Urinary tract infection type: site unspecified Qualified Code(s): N39.0 - Urinary tract infection, site not specified Code(s): N39.0 - Urinary tract infection, site not specified Status: Acute Assessment and Plan: see #2 urine culture with E. coli (5) Hyperkalemia: Code(s): E87.5 - Hyperkalemia Status: Acute Assessment and Plan: resolved likely due to PEREZ and acidosis along with hyperglycemia follow repeat levels (6) Elevated troponin: Code(s): R77.8 - Other specified abnormalities of plasma proteins Status: Acute Assessment and Plan: Cardiology recommendations noted continue supportive care (7) Diabetes: Code(s): E11.9 - Type 2 diabetes mellitus without complications Status: Acute Assessment and Plan: follow accuchecks glycemic control Will continue to follow. Subjective Date/time seen: 01/30/21 10:55 Remains intubated and sedated; following some simple commands and nods to yes/no questions; unfortunately, creatinine and urine output is declining; febrile overnight; no apparent distress noted. Exam Narrative: General: WD/WN female intubated but in NAD; awake Heart: normal S1 and S2; no rub Lungs: clear to auscultation Abdomen: soft, nontender, nondistended, positive bowel sounds Extremities: some cyanosis and trace edema noted Skin: warm and dry Objective Data Vital Signs Vital Signs: Vital Signs Temp Pulse Resp BP Pulse Ox 01/30/21 10:28 73 108/65 01/30/21 08:14 74 95 01/30/21 08:00 36.6 C 75 22 H 101/61 95 01/30/21 07:36 75 117/62 01/30/21 06:05 71 114/58 L 01/30/21 06:00 78 22 H 114/58 L 96 01/30/21 05:40 78 115/58 L 01/30/21 04:31 81 95 01/30/21 04:10 82 113/60 01/30/21 04:09 82 22 H 01/30/21 04:08 82 113/60 01/30/21 04:00 36.9 C 84 22 H 119/59 L 95 01/30/21 03:25 86 118/56 L 01/30/21 03:00 91 114/56 L 01/30/21 02:50 85 95 01/30/21 02:05 96 103/53 L 96 01/30/21 02:00 91 22 H 119/60 96 01/30/21 01:45 91 97 01/30/21 01:07 94 122/55 L 01/30/21 01:00 94 119/53 L 01/30/21 00:39 95 115/55 L 01/30/21 00:22 94 125/67 01/30/21 00:17 94 132/66 01/30/21 00:13 94 132/66 01/30/21 00:00 37.4 C 96 22 H 132/66 96 01/29/21 23:36 96 96 01/29/21 23:13 96 97 01/29/21 22:06 96 22 H 01/29/21 22:05 96 108/61 01/29/21 22:00 96 22 H 108/61 97
[2021-01-30 11:25] LABS: Hemoglobin A1C 7.2 % (<5.7)
--- NOTE | 2021-01-30 12:24 | WPDINTPN ---
Progress Note: A&P Assessment and Plan (1) Septic shock: Code(s): A41.9 - Sepsis, unspecified organism; R65.21 - Severe sepsis with septic shock Status: Acute Assessment and Plan: Severe sepsis secondary to UTI, kidney stone, instrumentation 01/28/2021: Blood cultures growing Gram-negative bacilli to 1 of 2 bottles -01/28/2021: Urine cultures pending -continue imipenem Patient did receive adequate amount of fluids since admission, despite which the blood pressures remain low and was started on Levophed. -currently on Waqas-Synephrine, patient is off Levophed and vasopressin -need to maintain mean arterial pressures > 70 mmHg for adequate renal and end organ perfusion -worsening creatinine, lactic acid and LFTs likely related to decreased end organ perfusion (2) Urinary tract infection: Qualifiers: Hematuria presence: without hematuria Urinary tract infection type: site unspecified Qualified Code(s): N39.0 - Urinary tract infection, site not specified Code(s): N39.0 - Urinary tract infection, site not specified Status: Acute Assessment and Plan: See above (3) PEREZ (acute kidney injury): Code(s): N17.9 - Acute kidney failure, unspecified Status: Acute Assessment and Plan: Likely secondary to sepsis and obstruction leading to hydronephrosis. Patient also on diuretics and Tyrell inhibitor which are on hold CT reviewed. -status post left ureteral stent placed by Urology on 01/28/2021 Continue maintenance IV fluids with bicarbonate -obtain urine lytes Monitor urine output creatinine electrolytes -obtained renal ultrasound this morning, 01/30: 1. Left kidney poorly visualized. Hydronephrosis cannot be confirmed or excluded. 2. 7 mm nonobstructing right kidney stone. -discussed with Urology, will order CT scan of the abdomen and pelvis -CT scan of the abdomen pelvis 01/30/2021: Left internal ureteral stent in expected position with 4 mm stone adjacent to the proximal stent and 4 mm stone in the urinary bladder. 2. Nonobstructing right nephrolithiasis. -will discuss with Nephrology regarding dialysis (4) Calculus of left kidney: Code(s): N20.0 - Calculus of kidney Status: Acute Assessment and Plan: CT MPRESSION: 1. Bilateral nephrolithiasis with obstructing 5-6 mm proximal left ureteral stone with mild left hydroureteronephrosis. Status post cystoscopy, left retrograde pyelogram and left ureteral stent placement on 01/28/2021 -urology following the patient (5) Transaminitis: Code(s): R74.01 - Elevation of levels of liver transaminase levels Status: Acute Assessment and Plan: Likely secondary to shock. Hold statin LFTs trending down (6) Encephalopathy: Code(s): G93.40 - Encephalopathy, unspecified Status: Acute Assessment and Plan: Patient is intubated, awake, follows simple commands Head CT negative Currently intubated with adequate ABGs (7) Elevated troponin: Code(s): R77.8 - Other specified abnormalities of plasma proteins Status: Acute Assessment and Plan: Likely type 2 non STEMI from sepsis. EKG reviewed and shows no ST elevation. Serial troponin continue aspirin Echocardiogram has been done, awaiting results Appreciate cardiology evaluation (8) Hyperkalemia: Code(s): E87.5 - Hyperkalemia Status: Acute Assessment and Plan: Resolved: Secondary to acidosis DKA and PEREZ Adequately fluid resuscitated Repeat BMP in 4 hours (9) DKA (diabetic ketoacidosis): Code(s): E11.10 - Type 2 diabetes mellitus with ketoacidosis without coma Status: Acute Assessment and Plan: Hyperglycemia: continue High dose SSI and accucheks -Lantus continue IV fluids Additional Plan Discussed with patient updated with her condition and plan of care Code status: Full code Critical care time spent: 34 minutes This dictation may have been done utilizing a voi
[2021-01-30 12:31] LABS: Glucose Point of Care 158 mg/dl (65-105)
[2021-01-30 16:13] LABS: Glucose Point of Care 183 mg/dl (65-105)
[2021-01-30] MEDS: SODIUM BICARBONATE 8.4% 150 MEQ in WATER, STERILE FOR INJECTION 950 ML 75 MEQ IV CONT (18:06)
[2021-01-30 20:19] LABS: Glucose Point of Care 202 mg/dl (65-105)
[2021-01-30] MEDS: INSULIN ASPART (*BKC) 100 UNITS/ML SUB-Q (20:27)
[2021-01-30 23:59] LABS: Glucose Point of Care 240 mg/dl (65-105)
[2021-01-31] VITALS (42 sets, daily range): BP systolic 84–143; BP diastolic 47–83; PULSE 60–92; RESP 21–22; TEMP 35.9–37.4; O2SAT 92–98
[2021-01-31 04:07] LABS: Glucose Point of Care 278 mg/dl (65-105)
[2021-01-31] MEDS: INSULIN ASPART (*BKC) 100 UNITS/ML SUB-Q ×4 (04:07→14:22)
[2021-01-31 05:15] LABS: Alveolar/Arterial O2 Gradient 81.5 mmHg; Base Excess ABG 6.9 mEq/l (+/-2.0); Carboxyhemoglobin 0.2 % THb (0-2.0); Fractional Inspired Oxygen 30 %; HCO3 ABG 29.4 mEq/l (22.0-26.0); Methemoglobin ABG 0.2 %THb (0-1.5); Oxygen Content ABG 13.8 %vol (16.0-22.0); Oxygen Saturation ABG 97.9 % (95.0-100.0); Oxyhemoglobin 95.6 % THb (90.0-100.0); PO2 ABG 92.5 mmHg (80.0-100.0); PO2 FiO2 Ratio Arterial Blood 3.08 %; Total Hemoglobin 10.2 g/dL (12.0-18.0)
[2021-01-31 05:18] LABS: Device VENTILATOR; Modified Allen's Test Pass; Site Drawn RIGHT RADIAL; pH ABG 7.555 (7.350-7.450)
[2021-01-31 05:19] LABS: Arterial Blood Gas PEEP 5 cmH2O; Arterial Blood Gas Tidal Volume 450 ml; Arterial Blood Gas Vent Mode CMV; Arterial Blood Gas Ventilator rate 22 /MIN
[2021-01-31] MEDS: HYDROCORTISONE SODIUM SUCCINATE 100 MG/2 ML VIAL IV PUSH ×3 (05:20→21:04)
[2021-01-31] MEDS: CENTRAL LINE FLUSH 10 ML IV PUSH ×7 (05:20→21:04)
[2021-01-31 05:21] LABS: Hematocrit 27.3 % (37.0-47.0); Hemoglobin 9.1 g/dL (12.0-15.0); Mean Corpuscular HGB Conc 33.3 g/dl (32-36); Mean Corpuscular Hemoglobin 30.5 pg (26-34); Mean Corpuscular Volume 91.6 fl (80-100); Mean Platelet Volume 11.6 fl (7.4-10.4); Platelet Count Result 75 k/mm3 (150-375); Red Blood Count 2.98 M/mm3 (4.2-5.4); Red Cell Distribution Width 14.5 % (11.5-14.5)
[2021-01-31 05:30] LABS: Lactic Acid Reflex 1.9 mmol/L (0.7-2.1)
[2021-01-31 05:31] LABS: INR 1.2; Prothrombin Time 14.6 Seconds (11.1-14.7)
[2021-01-31 05:50] LABS: Alanine Aminotransferase 290 U/L (4-35); Albumin Level 2.6 g/dL (3.5-5.1); Alkaline Phosphatase 345 U/L (38-126); Anion Gap 10 mmol/L (8-16); Aspartate Amino Transferase 168 U/L (14-36); Bilirubin,Total 1.7 mg/dL (0.2-1.3); Blood Urea Nitrogen 116 mg/dL (7-17); Calcium 7.4 mg/dL (8.4-10.2); Carbon Dioxide 31 mmol/L (22-30); Chloride 94 mmol/L (98-107); Estimated CRCL calculation 13 ml/min; Estimated Glomerular Filt Rate 8; Glucose 286 mg/dL (65-110); Phosphorus 3.8 mg/dL (2.5-4.5); Potassium 4.4 mmol/L (3.4-5.0); Sodium 135 mmol/L (137-145)
[2021-01-31 06:23] LABS: CRP 32.2 mg/dL (<1.0)
[2021-01-31] MEDS: PANTOPRAZOLE SODIUM IV 40 MG VIAL IV PUSH (08:50)
[2021-01-31] MEDS: MINERAL OIL/WHITE PETROLATUM OINTMENT 1 APPLIC EACH EYE ×2 (08:50→20:15)
[2021-01-31 08:57] LABS: Glucose Point of Care 308 mg/dl (65-105)
[2021-01-31] MEDS: INSULIN GLARGINE (*BKC) 100 UNITS/ML 22 UNITS SUB-Q (08:57)
[2021-01-31] MEDS: FENTANYL 2,500MCG/NS250ML(*CRX 2,500 MCG/250 ML BAG IV CONT (10:34)
[2021-01-31] MEDS: MIDAZOLAM HCL (*CRX) 2 MG/2 ML VIAL IV PUSH ×2 (11:43→14:18)
[2021-01-31] MEDS: fentaNYL CITRATE INJ (*CRX) 100 MCG/2 ML VIAL IV PUSH ×2 (11:44→14:18)
--- NOTE | 2021-01-31 12:17 | PCFNICU ---
ICU Rounding Note: Pt current nutrition is Nepro at 40 ml/hr over 22 hours. Last recorded weight is 121.9 kg. Bowel Motility:+BM reported 01/30 Labs Reviewed:Glu 286,BUN 116, Cr 5.3,GFR 8, Cr 5.3,Alb 2.6,Na 135, Hct 27.3,Hgb 9.1 Meds Noted:Fentanyl, Primaxin, Novolog, Protonix, Lantus Skin:WNL Additional Notes: Patient is tolerating tube feedings of Nepro at 40 ml/hr providing 1584 kcals/71 gms protein/640 ml water. Free water flushes 30 ml q 4 hours. Plans for Dialysis catheter today, tube feeding will be put on hold for procedure. Mechanical vent setting remain the same. Following daily in ICU rounds. Assessing/reassessing Friday and Friday.
--- NOTE | 2021-01-31 12:32 | WPDINTPN ---
Progress Note: A&P Assessment and Plan (1) Septic shock: Code(s): A41.9 - Sepsis, unspecified organism; R65.21 - Severe sepsis with septic shock Status: Acute Assessment and Plan: Severe sepsis secondary to UTI, kidney stone, instrumentation 01/28/2021: Blood cultures growing E coli 2 of 2 bottles pansensitive -01/28/2021: Urine cultures growing E coli -continue imipenem Patient did receive adequate amount of fluids since admission, despite which the blood pressures remain low and was started on Levophed. -OFF all pressors -need to maintain mean arterial pressures > 70 mmHg for adequate renal and end organ perfusion -worsening creatinine/oliguria -LFTs improving (2) Urinary tract infection: Qualifiers: Hematuria presence: without hematuria Urinary tract infection type: site unspecified Qualified Code(s): N39.0 - Urinary tract infection, site not specified Code(s): N39.0 - Urinary tract infection, site not specified Status: Acute Assessment and Plan: See above (3) PEREZ (acute kidney injury): Code(s): N17.9 - Acute kidney failure, unspecified Status: Acute Assessment and Plan: Likely secondary to sepsis and obstruction leading to hydronephrosis. Patient also on diuretics and Tyrell inhibitor which are on hold CT reviewed. -status post left ureteral stent placed by Urology on 01/28/2021 Continue maintenance IV fluids with bicarbonate -obtain urine lytes Monitor urine output creatinine electrolytes -obtained renal ultrasound this morning, 01/30: 1. Left kidney poorly visualized. Hydronephrosis cannot be confirmed or excluded. 2. 7 mm nonobstructing right kidney stone. -discussed with Urology, will order CT scan of the abdomen and pelvis -CT scan of the abdomen pelvis 01/30/2021: Left internal ureteral stent in expected position with 4 mm stone adjacent to the proximal stent and 4 mm stone in the urinary bladder. 2. Nonobstructing right nephrolithiasis. -will place dialysis catheter start dialysis as patient continues to have significantly decreased urine output and worsening renal function (4) Calculus of left kidney: Code(s): N20.0 - Calculus of kidney Status: Acute Assessment and Plan: CT MPRESSION: 1. Bilateral nephrolithiasis with obstructing 5-6 mm proximal left ureteral stone with mild left hydroureteronephrosis. Status post cystoscopy, left retrograde pyelogram and left ureteral stent placement on 01/28/2021 -urology following the patient (5) Transaminitis: Code(s): R74.01 - Elevation of levels of liver transaminase levels Status: Acute Assessment and Plan: Likely secondary to shock. Hold statin LFTs trending down (6) Encephalopathy: Code(s): G93.40 - Encephalopathy, unspecified Status: Acute Assessment and Plan: Patient is intubated, awake, follows simple commands Head CT negative Currently intubated with adequate ABGs (7) Elevated troponin: Code(s): R77.8 - Other specified abnormalities of plasma proteins Status: Acute Assessment and Plan: Likely type 2 non STEMI from sepsis. EKG reviewed and shows no ST elevation. Serial troponin continue aspirin Echocardiogram has been done, awaiting results Appreciate cardiology evaluation (8) Hyperkalemia: Code(s): E87.5 - Hyperkalemia Status: Acute Assessment and Plan: Resolved: Secondary to acidosis DKA and PEREZ Adequately fluid resuscitated Repeat BMP in 4 hours (9) DKA (diabetic ketoacidosis): Code(s): E11.10 - Type 2 diabetes mellitus with ketoacidosis without coma Status: Acute Assessment and Plan: Hyperglycemia: continue High dose SSI and accucheks -Lantus continue IV fluids Additional Plan Discussed with patient updated with her condition and plan of care Code status: Full code Critical care time spent: 33 minutes This dictation may have been done utilizing a voice re
[2021-01-31 12:49] LABS: Hepatitis B Surface Antigen Negative (Negative)
[2021-01-31 12:54] LABS: Hepatitis B Core IgM Result Negative (Negative)
[2021-01-31 13:06] LABS: Hepatitis B Surface Anti Res Negative
[2021-01-31 14:16] LABS: Glucose Point of Care 275 mg/dl (65-105)
--- NOTE | 2021-01-31 14:27 | WPDPROCEDUR ---
Procedures Hemodialysis Catheter Placement Right IJ: Discussed w/ patient and/or surrogate, the non-emergent placement of a 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 catheter, including it's clinincal necessity/indication & associated potential risks & complications.: Yes The patient and/or surrogate understand(s) and acknowledge(s) the need to proceed with 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 catheter insertion as an important element of the patient's clinical management.: Yes HD Catheter Date: 01/31/21 HD Catheter Time: 14:05 Pre-procedural Time-Out was completed immediately before starting the procedure and confirmed: Patient Identification, Site, Procedure, Patient Position and the Availability of Requisite Equipment.: Yes Patient Position: supine Patient Placed on Monitor/Pulse Ox: Yes Provider Prep: mask, sterile gown, sterile gloves, Max. sterile barrier precautions, cap and hand hygiene Hemodialysis Catheter Prep: Chlorhexidine scrub Local Anesthesia Used: lidocaine 1% Hemodialysis Catheter Inserted: triple Filipino: 8 Length (cm): 16 Depth of Insertion (cm): 16 Post Procedure: sutured in place, good blood return, all ports aspirated, flushed, capped, transparent dressing, hemostatic product, antimicrobial product, securement product and aseptic technique maintained throughout procedure Post Procedure X-Ray: tip of catheter in good position Patient Tolerated Procedure: well Complications: none Additional Comments: I inserted a dialysis catheter in the left IJ, chest x-ray showed unclear location of the tip, radiologist was concerned about in anomaly. Left IJ dialysis catheter was removed. A right IJ dialysis catheter was inserted over guidewire from the previous triple-lumen central line.
--- NOTE | 2021-01-31 16:32 | P.PNNP_ITS ---
Progress Note: A&P Assessment and Plan (1) PEREZ (acute kidney injury): Code(s): N17.9 - Acute kidney failure, unspecified Status: Acute Assessment and Plan: * multifactorial ATN: - sepsis/infection (UTI) - obstruction/hydronephrosis - concurrent ALICE-I and diuretic use prior to admission * bilateral nephrolithiasis with obstructing 5-6 mm proximal left ureteral stone with mild left hydroureteronephrosis by admission CT scan * status post cystoscopy, left retrograde pyelogram and left ureteral stent placement on 01/28/2021 * s/p IVF resuscitation * due to rising BUN and creatinine in association with declining urine output, 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 of BLOCKLAYER/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 * HD today, tomorrow and likely day after tomorrow (2) Septic shock: Code(s): A41.9 - Sepsis, unspecified organism; R65.21 - Severe sepsis with septic shock Status: Acute Assessment and Plan: * due to combination of UTI, nephrolithiasis, and instrumentation * appears to be urosepsis: * blood culture with E.coli (2 of 2 bottles) * urine culture with E.coli * off pressor therapy at this time * continue IV antibiotics (3) Acute respiratory failure: Code(s): J96.00 - Acute respiratory failure, unspecified whether with hypoxia or hypercapnia Status: Acute Assessment and Plan: * due to encephalopathy * continue mechanical ventilation * wean as tolerated (4) Urinary tract infection: Qualifiers: Hematuria presence: without hematuria Urinary tract infection type: site unspecified Qualified Code(s): N39.0 - Urinary tract infection, site not specified Code(s): N39.0 - Urinary tract infection, site not specified Status: Acute Assessment and Plan: * see #2 * urine culture with E. coli (5) Hyperkalemia: Code(s): E87.5 - Hyperkalemia Status: Acute Assessment and Plan: * resolved * likely due to PEREZ and acidosis along with hyperglycemia * follow repeat levels (6) Elevated troponin: Code(s): R77.8 - Other specified abnormalities of plasma proteins Status: Acute Assessment and Plan: * Cardiology recommendations noted * continue supportive care (7) Diabetes: Code(s): E11.9 - Type 2 diabetes mellitus without complications Status: Acute Assessment and Plan: * follow accuchecks * glycemic control Will continue to follow. Subjective Date/time seen: 01/31/21 16:32 Tolerating 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 treatment at the time of my visit (seen on HD at 4:20PM); remains on ventilator support but hemodynamically stable off vasopressor therapy; still able to nod head to simple questions and follow si mple commands; rising BUN and creatinine noted; no apparent distress. Exam Narrative: General: WD/WN female intubated but in NAD; awake Heart: normal S1 and S2; no rub Lungs: clear to auscultation Abdomen: soft, nontender, nondistended, positive bowel sounds Extremities: trace edema noted Skin: warm and intact Objective Data Vital Signs Vital Signs: Vital Signs Temp Pulse Resp BP Pulse Ox 01/31/21 16:15 62 103/72 01/31/21 16:00 36.4 C 70 22 H 128/83 94 01/31/21 15:55 36.6 C 60 22 H 126/74 92 01/31/21 14:45 67 93 01/31/21 14:00 66 22 H 128/64 94 01/31/21 12:21 73 133/68 01/31/21
--- NOTE | 2021-01-31 16:32 | PM.PNNEP ---
Progress Note: A&P Assessment and Plan (1) PEREZ (acute kidney injury): Code(s): N17.9 - Acute kidney failure, unspecified Status: Acute Assessment and Plan: multifactorial ATN: - sepsis/infection (UTI) - obstruction/hydronephrosis - concurrent ALICE-I and diuretic use prior to admission bilateral nephrolithiasis with obstructing 5-6 mm proximal left ureteral stone with mild left hydroureteronephrosis by admission CT scan status post cystoscopy, left retrograde pyelogram and left ureteral stent placement on 01/28/2021 s/p IVF resuscitation due to rising BUN and creatinine in association with declining urine output, 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 of 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 DESIGNER/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 HD today, tomorrow and likely day after tomorrow (2) Septic shock: Code(s): A41.9 - Sepsis, unspecified organism; R65.21 - Severe sepsis with septic shock Status: Acute Assessment and Plan: due to combination of UTI, nephrolithiasis, and instrumentation appears to be urosepsis: blood culture with E.coli (2 of 2 bottles) urine culture with E.coli off pressor therapy at this time continue IV antibiotics (3) Acute respiratory failure: Code(s): J96.00 - Acute respiratory failure, unspecified whether with hypoxia or hypercapnia Status: Acute Assessment and Plan: due to encephalopathy continue mechanical ventilation wean as tolerated (4) Urinary tract infection: Qualifiers: Hematuria presence: without hematuria Urinary tract infection type: site unspecified Qualified Code(s): N39.0 - Urinary tract infection, site not specified Code(s): N39.0 - Urinary tract infection, site not specified Status: Acute Assessment and Plan: see #2 urine culture with E. coli (5) Hyperkalemia: Code(s): E87.5 - Hyperkalemia Status: Acute Assessment and Plan: resolved likely due to PEREZ and acidosis along with hyperglycemia follow repeat levels (6) Elevated troponin: Code(s): R77.8 - Other specified abnormalities of plasma proteins Status: Acute Assessment and Plan: Cardiology recommendations noted continue supportive care (7) Diabetes: Code(s): E11.9 - Type 2 diabetes mellitus without complications Status: Acute Assessment and Plan: follow accuchecks glycemic control Will continue to follow. Subjective Date/time seen: 01/31/21 16:32 Tolerating 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 treatment at the time of my visit (seen on HD at 4:20PM); remains on ventilator support but hemodynamically stable off vasopressor therapy; still able to nod head to simple questions and follow simple commands; rising BUN and creatinine noted; no apparent distress. Exam Narrative: General: WD/WN female intubated but in NAD; awake Heart: normal S1 and S2; no rub Lungs: clear to auscultation Abdomen: soft, nontender, nondistended, positive bowel sounds Extremities: trace edema noted Skin: warm and intact Objective Data Vital Signs Vital Signs: Vital Signs Temp Pulse Resp BP Pulse Ox 01/31/21 16:15 62 103/72 01/31/21 16:00 36.4 C 70 22 H 128/83 94 01/31/21 15:55 36.6 C 60 22 H 126/74 92 01/31/21 14:45 67 93 01/31/21 14:00 66 22 H 128/64 94 01/31/21 12:21 73 133/68 01/31/21 12:00 36.6 C 66 22 H 133/68 96 01/31/21 11:08 66 94 01/31/21 10:34 66 22 H 01/31/21 10:32 67 95/54 L 01/31/21 10:00 66 22 H 95/54 L 93 01/31/21 08:22 64 93 01/31/21 08:00 36.4 C 65 22 H 97/57 L 93 01/31/21 06:00 70 22 H 100/56 L 94 01/31/21 05:23 68 22 H 01/31/21 05:05 70 95 01/31/21 04:00 36.8 C 69 22 H 125/70 94 01/31/21 02:15 69 94 01/31/21 02:00 73 22 H 120/64 95 01/31/21 00:00 36.6 C 71 22 H 113/67 94 01/30/21 23:10 71 94 01/30/21 23:02 67 22 H 103/56 L 94 01/30/21 22:00 70 22 H 97/55 L 94
[2021-01-31 17:32] LABS: Glucose Point of Care 183 mg/dl (65-105)
[2021-01-31] MEDS: EPOETIN ALFA-EPBX 10,000 UNITS/ML VIAL 10000 UNITS IV PUSH (18:02)
[2021-01-31 20:28] LABS: Glucose Point of Care 174 mg/dl (65-105)
[2021-02-01] VITALS (39 sets, daily range): BP systolic 87–147; BP diastolic 47–92; PULSE 59–87; RESP 16–22; TEMP 35.8–36.8; O2SAT 92–99
[2021-02-01 00:28] LABS: Glucose Point of Care 246 mg/dl (65-105)
[2021-02-01] MEDS: INSULIN ASPART (*BKC) 100 UNITS/ML SUB-Q ×6 (00:30→20:38)
[2021-02-01 04:22] LABS: Glucose Point of Care 301 mg/dl (65-105)
[2021-02-01 04:46] LABS: Hematocrit 29.5 % (37.0-47.0); Hemoglobin 9.7 g/dL (12.0-15.0); Immature Platelet Fraction Pct 8.7 % (0.9-11.2); Mean Corpuscular HGB Conc 32.9 g/dl (32-36); Mean Corpuscular Volume 91.3 fl (80-100); Mean Platelet Volume 11.8 fl (7.4-10.4); Platelet Count Result 56 k/mm3 (150-375); Red Blood Count 3.23 M/mm3 (4.2-5.4); Red Cell Distribution Width 14.2 % (11.5-14.5); White Blood Count 14.1 K/mm3 (4.5-10.0)
[2021-02-01 04:56] LABS: Alveolar/Arterial O2 Gradient 93.5 mmHg; Base Excess ABG 1.4 mEq/l (+/-2.0); Carboxyhemoglobin 0.3 % THb (0-2.0); Fractional Inspired Oxygen 30 %; HCO3 ABG 25.1 mEq/l (22.0-26.0); Oxygen Content ABG 14.3 %vol (16.0-22.0); Oxygen Saturation ABG 96.1 % (95.0-100.0); Oxyhemoglobin 93.7 % THb (90.0-100.0); PCO2 ABG 36.5 mmHg (35.0-45.0); PO2 ABG 77.5 mmHg (80.0-100.0); PO2 FiO2 Ratio Arterial Blood 2.58 %; Total Hemoglobin 10.8 g/dL (12.0-18.0); pH ABG 7.456 (7.350-7.450)
[2021-02-01 04:57] LABS: Device VENTILATOR; Modified Allen's Test Pass; Site Drawn RIGHT RADIAL
[2021-02-01 04:58] LABS: Arterial Blood Gas PEEP 5 cmH2O; Arterial Blood Gas Tidal Volume 450 ml; Arterial Blood Gas Vent Mode CMV; Arterial Blood Gas Ventilator rate 22 /MIN
[2021-02-01 05:09] LABS: Lactic Acid Reflex 1.3 mmol/L (0.7-2.1)
[2021-02-01] MEDS: HYDROCORTISONE SODIUM SUCCINATE 100 MG/2 ML VIAL IV PUSH ×3 (05:12→21:45)
[2021-02-01] MEDS: CENTRAL LINE FLUSH 10 ML IV PUSH ×6 (05:12→21:45)
[2021-02-01 05:20] LABS: Alanine Aminotransferase 195 U/L (4-35); Albumin Level 2.4 g/dL (3.5-5.1); Alkaline Phosphatase 358 U/L (38-126); Anion Gap 9 mmol/L (8-16); Aspartate Amino Transferase 70 U/L (14-36); Bilirubin,Total 1.2 mg/dL (0.2-1.3); Blood Urea Nitrogen 83 mg/dL (7-17); Calcium 7.7 mg/dL (8.4-10.2); Carbon Dioxide 27 mmol/L (22-30); Chloride 100 mmol/L (98-107); Estimated CRCL calculation 17 ml/min; Estimated Glomerular Filt Rate 11; Glucose 325 mg/dL (65-110); Magnesium 2.2 mg/dL (1.6-2.3); Phosphorus 4.2 mg/dL (2.5-4.5); Potassium 4.6 mmol/L (3.4-5.0); Sodium 136 mmol/L (137-145)
[2021-02-01 08:22] LABS: Glucose Point of Care 378 mg/dl (65-105)
[2021-02-01] MEDS: INSULIN GLARGINE (*BKC) 100 UNITS/ML 30 UNITS SUB-Q (08:26)
[2021-02-01] MEDS: MINERAL OIL/WHITE PETROLATUM OINTMENT 1 APPLIC EACH EYE ×2 (08:26→20:37)
[2021-02-01] MEDS: EPOETIN ALFA-EPBX 10,000 UNITS/ML VIAL 10000 UNITS IV PUSH (09:33)
[2021-02-01] MEDS: ALBUMIN HUMAN 25% 12.5 GM/50ML 50 ML IVPB ×2 (10:18→11:03)
--- NOTE | 2021-02-01 11:21 | PCFNICU ---
ICU Rounding Note: Pt current nutrition is Nepro at 40 ml/hour over 22 hours per day providing a total of 1584 calories, 71 grams of protein and 640 mls of water with a 30 ml water flush Q4 providing an additional 180 mls of water. Last recorded weight is 61.4 kg. Bowel Motility: + BM 02/01/2021 Labs Reviewed: Hgb 9.7, Hct 29.5, Alb 2.4, Na 136, GFR 11, BUN 83, Cr 4.10, Glu 325 Meds Noted: Albutein, Retacrit, Glucose, Glucagon, Heparin Sodium, Novolog, Lantus Skin: No skin breakdown at this time. WNL. Additional Notes: Rounded on patient this morning 02/01/2021. Patient is tolerating current feeding with little to no residuals. She currently has dialysis three days a week. After dialysis today, 02/01/2021 she might come off of her breathing tube. Following daily in ICU rounds. Assessing/reassessing T/F.
--- NOTE | 2021-02-01 12:00 | P.PNNP_ITS ---
Progress Note: A&P Assessment and Plan (1) PEREZ (acute kidney injury): Code(s): N17.9 - Acute kidney failure, unspecified Status: Acute Assessment and Plan: * multifactorial ATN: - sepsis/infection (UTI) - obstruction/hydronephrosis - concurrent ALICE-I and diuretic use prior to admission * bilateral nephrolithiasis with obstructing 5-6 mm proximal left ureteral stone with mild left hydroureteronephrosis by admission CT scan * status post cystoscopy, left retrograde pyelogram and left ureteral stent placement on 01/28/2021 * s/p IVF resuscitation * due to rising BUN and creatinine in association with declining urine output, 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 * HD today and likely tomorrow as well (2) Septic shock: Code(s): A41.9 - Sepsis, unspecified organism; R65.21 - Severe sepsis with septic shock Status: Acute Assessment and Plan: * due to combination of UTI, nephrolithiasis, and instrumentation * appears to be urosepsis: * blood culture with E.coli (2 of 2 bottles) * urine culture with E.coli * follow repeat cultures * off pressor therapy at this time * continue IV antibiotics (3) Acute respiratory failure: Code(s): J96.00 - Acute respiratory failure, unspecified whether with hypoxia or hypercapnia Status: Acute Assessment and Plan: * due to encephalopathy * continue mechanical ventilation * wean as tolerated (4) Urinary tract infection: Qualifiers: Hematuria presence: without hematuria Urinary tract infection type: sit e unspecified Qualified Code(s): N39.0 - Urinary tract infection, site not specified Code(s): N39.0 - Urinary tract infection, site not specified Status: Acute Assessment and Plan: * see #2 * urine culture with E. coli (5) Hyperkalemia: Code(s): E87.5 - Hyperkalemia Status: Acute Assessment and Plan: * resolved * likely due to PEREZ and acidosis along with hyperglycemia * follow repeat levels (6) Elevated troponin: Code(s): R77.8 - Other specified abnormalities of plasma proteins Status: Acute Assessment and Plan: * Cardiology recommendations noted * continue supportive care (7) Diabetes: Code(s): E11.9 - Type 2 diabetes mellitus without complications Status: Acute Assessment and Plan: * follow accuchecks * glycemic control Will continue to follow. Subjective Date/time seen: 02/01/21 12:00 Tolerating dialysis at the time of my visit (seen on HD at 11:50AM); tolerated dialysis yesterday as well; remains on ventilator support without the need for pressor therapy - remains hemodynamically stable; still with not much urine output. Exam Narrative: General: WD/WN female intubated but in NAD; awake Heart: normal S1 and S2; no rub Lungs: clear to auscultation Abdomen: soft, nontender, nondistended, positive bowel sounds Extremities: trace edema noted Skin: warm and intact Objective Data Vital Signs Vital Signs: Vital Signs Temp Pulse Resp BP Pulse Ox 02/01/21 12:00 65 128/62 02/01/21 11:45 68 124/65 02/01/21 11:32 67 125/56 L 02/01/21 11:16 68 127/59 L 02/01/21 11:00 65 118/57 L 02/01/21 10:45 68 116/59 L 02/01/21 10:41 67 94 02/01/21 10:30 68
--- NOTE | 2021-02-01 12:00 | PM.PNNEP ---
Progress Note: A&P Assessment and Plan (1) PEREZ (acute kidney injury): Code(s): N17.9 - Acute kidney failure, unspecified Status: Acute Assessment and Plan: multifactorial ATN: - sepsis/infection (UTI) - obstruction/hydronephrosis - concurrent ALICE-I and diuretic use prior to admission bilateral nephrolithiasis with obstructing 5-6 mm proximal left ureteral stone with mild left hydroureteronephrosis by admission CT scan status post cystoscopy, left retrograde pyelogram and left ureteral stent placement on 01/28/2021 s/p IVF resuscitation due to rising BUN and creatinine in association with declining urine output, 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 of BILLING TYPIST/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 HD today and likely tomorrow as well (2) Septic shock: Code(s): A41.9 - Sepsis, unspecified organism; R65.21 - Severe sepsis with septic shock Status: Acute Assessment and Plan: due to combination of UTI, nephrolithiasis, and instrumentation appears to be urosepsis: blood culture with E.coli (2 of 2 bottles) urine culture with E.coli follow repeat cultures off pressor therapy at this time continue IV antibiotics (3) Acute respiratory failure: Code(s): J96.00 - Acute respiratory failure, unspecified whether with hypoxia or hypercapnia Status: Acute Assessment and Plan: due to encephalopathy continue mechanical ventilation wean as tolerated (4) Urinary tract infection: Qualifiers: Hematuria presence: without hematuria Urinary tract infection type: site unspecified Qualified Code(s): N39.0 - Urinary tract infection, site not specified Code(s): N39.0 - Urinary tract infection, site not specified Status: Acute Assessment and Plan: see #2 urine culture with E. coli (5) Hyperkalemia: Code(s): E87.5 - Hyperkalemia Status: Acute Assessment and Plan: resolved likely due to PEREZ and acidosis along with hyperglycemia follow repeat levels (6) Elevated troponin: Code(s): R77.8 - Other specified abnormalities of plasma proteins Status: Acute Assessment and Plan: Cardiology recommendations noted continue supportive care (7) Diabetes: Code(s): E11.9 - Type 2 diabetes mellitus without complications Status: Acute Assessment and Plan: follow accuchecks glycemic control Will continue to follow. Subjective Date/time seen: 02/01/21 12:00 Tolerating dialysis at the time of my visit (seen on HD at 11:50AM); tolerated dialysis yesterday as well; remains on ventilator support without the need for pressor therapy - remains hemodynamically stable; still with not much urine output. Exam Narrative: General: WD/WN female intubated but in NAD; awake Heart: normal S1 and S2; no rub Lungs: clear to auscultation Abdomen: soft, nontender, nondistended, positive bowel sounds Extremities: trace edema noted Skin: warm and intact Objective Data Vital Signs Vital Signs: Vital Signs Temp Pulse Resp BP Pulse Ox 02/01/21 12:00 65 128/62 02/01/21 11:45 68 124/65 02/01/21 11:32 67 125/56 L 02/01/21 11:16 68 127/59 L 02/01/21 11:00 65 118/57 L 02/01/21 10:45 68 116/59 L 02/01/21 10:41 67 94 02/01/21 10:30 68 127/56 L 02/01/21 10:15 71 117/58 L 02/01/21 10:04 69 122/56 L 02/01/21 10:00 67 22 H 122/56 L 94 02/01/21 09:45 67 117/59 L 02/01/21 09:30 64 107/56 L 02/01/21 09:15 62 109/53 L 02/01/21 09:00 63 114/58 L 02/01/21 08:45 64 131/59 L 02/01/21 08:30 71 127/81 02/01/21 08:18 62 94 02/01/21 08:15 36.6 C 72 20 128/55 L 95 02/01/21 08:00 36.6 C 61 22 H 124/58 L 93 02/01/21 06:00 59 L 22 H 87/47 L 94 02/01/21 04:40 70 93 02/01/21 04:00 36.4 C L 67 22 H 102/51 L 96 02/01/21 02:00 68 22 H 104/59 L 93 02/01/21 01:38 68 92
--- NOTE | 2021-02-01 12:38 | WPDINTPN ---
Progress Note: A&P Assessment and Plan (1) Septic shock: Code(s): A41.9 - Sepsis, unspecified organism; R65.21 - Severe sepsis with septic shock Status: Acute Assessment and Plan: Severe sepsis secondary to UTI, kidney stone, instrumentation -01/28/2021: Blood cultures growing E coli 2 of 2 bottles pansensitive -01/28/2021: Urine cultures growing E coli -continue imipenem -: repeat blood cultures Patient did receive adequate amount of fluids since admission, despite which the blood pressures remain low and was started on Levophed. -OFF all pressors -need to maintain mean arterial pressures > 70 mmHg for adequate renal and end organ perfusion -worsening creatinine/oliguria -LFTs improving (2) Urinary tract infection: Qualifiers: Hematuria presence: without hematuria Urinary tract infection type: site unspecified Qualified Code(s): N39.0 - Urinary tract infection, site not specified Code(s): N39.0 - Urinary tract infection, site not specified Status: Acute Assessment and Plan: See above (3) PEREZ (acute kidney injury): Code(s): N17.9 - Acute kidney failure, unspecified Status: Acute Assessment and Plan: Likely secondary to sepsis and obstruction leading to hydronephrosis. Patient also on diuretics and Tyrell inhibitor which are on hold CT reviewed. -status post left ureteral stent placed by Urology on 01/28/2021 Continue maintenance IV fluids with bicarbonate -obtain urine lytes Monitor urine output creatinine electrolytes -obtained renal ultrasound this morning, 01/30: 1. Left kidney poorly visualized. Hydronephrosis cannot be confirmed or excluded. 2. 7 mm nonobstructing right kidney stone. -discussed with Urology, will order CT scan of the abdomen and pelvis -CT scan of the abdomen pelvis 01/30/2021: Left internal ureteral stent in expected position with 4 mm stone adjacent to the proximal stent and 4 mm stone in the urinary bladder. 2. Nonobstructing right nephrolithiasis. -dialysis catheter was placed on 01/31/2021 and started on HD on the same day -discuss with Nephrology, will dialyze again today (4) Calculus of left kidney: Code(s): N20.0 - Calculus of kidney Status: Acute Assessment and Plan: CT MPRESSION: 1. Bilateral nephrolithiasis with obstructing 5-6 mm proximal left ureteral stone with mild left hydroureteronephrosis. Status post cystoscopy, left retrograde pyelogram and left ureteral stent placement on 01/28/2021 -urology following the patient (5) Transaminitis: Code(s): R74.01 - Elevation of levels of liver transaminase levels Status: Acute Assessment and Plan: Likely secondary to shock. Hold statin LFTs trending down (6) Encephalopathy: Code(s): G93.40 - Encephalopathy, unspecified Status: Acute Assessment and Plan: Patient is intubated, awake, follows simple commands Head CT negative Currently intubated with adequate ABGs (7) Elevated troponin: Code(s): R77.8 - Other specified abnormalities of plasma proteins Status: Acute Assessment and Plan: Likely type 2 non STEMI from sepsis. EKG reviewed and shows no ST elevation. Serial troponin continue aspirin Echocardiogram 01/30/2021: EF of 60-65%, grade 2 diastolic dysfunction no segmental wall motion abnormalities, moderate pulmonary hypertension with RVSP of 48 mmHg. Appreciate cardiology evaluation (8) Hyperkalemia: Code(s): E87.5 - Hyperkalemia Status: Acute Assessment and Plan: Resolved: Patient also on dialysis (9) DKA (diabetic ketoacidosis): Code(s): E11.10 - Type 2 diabetes mellitus with ketoacidosis without coma Status: Acute Assessment and Plan: Hyperglycemia: continue High dose SSI and accucheks -continue Lantus Additional Plan Discussed with patient and her son and updated both of them with her condition and plan of care. I answered all question
[2021-02-01 12:46] LABS: Glucose Point of Care 212 mg/dl (65-105)
[2021-02-01] MEDS: PANTOPRAZOLE SODIUM IV 40 MG VIAL IV PUSH (12:51)
[2021-02-01 16:33] LABS: Glucose Point of Care 246 mg/dl (65-105)
[2021-02-01 20:37] LABS: Glucose Point of Care 301 mg/dl (65-105)
[2021-02-02] VITALS (31 sets, daily range): BP systolic 98–169; BP diastolic 66–84; PULSE 74–87; RESP 15–20; TEMP 36.3–36.8; O2SAT 94–99
[2021-02-02 00:18] LABS: Glucose Point of Care 315 mg/dl (65-105)
[2021-02-02] MEDS: INSULIN ASPART (*BKC) 100 UNITS/ML SUB-Q ×4 (00:18→11:53)
[2021-02-02 04:29] LABS: Alveolar/Arterial O2 Gradient 79.8 mmHg; Base Excess ABG -2.2 mEq/l (+/-2.0); Carboxyhemoglobin 0.3 % THb (0-2.0); Device VENTILATOR; Fractional Inspired Oxygen 30 %; HCO3 ABG 21.5 mEq/l (22.0-26.0); Methemoglobin ABG 0.2 %THb (0-1.5); Modified Allen's Test Pass; Oxygen Content ABG 16.5 %vol (16.0-22.0); Oxygen Saturation ABG 97.5 % (95.0-100.0); Oxyhemoglobin 95.6 % THb (90.0-100.0); PCO2 ABG 33.5 mmHg (35.0-45.0); PO2 ABG 94.7 mmHg (80.0-100.0); PO2 FiO2 Ratio Arterial Blood 3.16 %; Reduced Hemoglobin 3.9 %THb (0-5.0); Site Drawn RIGHT RADIAL; Total Hemoglobin 12.2 g/dL (12.0-18.0); pH ABG 7.426 (7.350-7.450)
[2021-02-02 04:30] LABS: Arterial Blood Gas PEEP 5 cmH2O; Arterial Blood Gas Vent Mode ASV
[2021-02-02 05:04] LABS: Hematocrit 33.2 % (37.0-47.0); Hemoglobin 10.8 g/dL (12.0-15.0); Immature Platelet Fraction Pct 12.3 % (0.9-11.2); Mean Corpuscular HGB Conc 32.5 g/dl (32-36); Mean Corpuscular Hemoglobin 30.8 pg (26-34); Mean Corpuscular Volume 94.6 fl (80-100); Mean Platelet Volume 13.5 fl (7.4-10.4); Platelet Count Result 48 k/mm3 (150-375); Red Blood Count 3.51 M/mm3 (4.2-5.4); Red Cell Distribution Width 14.3 % (11.5-14.5); White Blood Count 18.1 K/mm3 (4.5-10.0)
[2021-02-02 05:18] LABS: Alanine Aminotransferase 120 U/L (4-35); Albumin Level 2.7 g/dL (3.5-5.1); Alkaline Phosphatase 347 U/L (38-126); Anion Gap 9 mmol/L (8-16); Aspartate Amino Transferase 42 U/L (14-36); Bilirubin,Total 1.2 mg/dL (0.2-1.3); Blood Urea Nitrogen 78 mg/dL (7-17); Calcium 8.5 mg/dL (8.4-10.2); Carbon Dioxide 26 mmol/L (22-30); Chloride 103 mmol/L (98-107); Estimated CRCL calculation 19 ml/min; Estimated Glomerular Filt Rate 13; Glucose 339 mg/dL (65-110); Lactic Acid Reflex 1.6 mmol/L (0.7-2.1); Magnesium 2.4 mg/dL (1.6-2.3); Phosphorus 4.4 mg/dL (2.5-4.5); Potassium 4.7 mmol/L (3.4-5.0); Sodium 138 mmol/L (137-145)
[2021-02-02] MEDS: HYDROCORTISONE SODIUM SUCCINATE 100 MG/2 ML VIAL IV PUSH ×2 (05:47→13:36)
[2021-02-02] MEDS: CENTRAL LINE FLUSH 10 ML IV PUSH ×4 (05:48→20:18)
--- NOTE | 2021-02-02 07:37 | PCNSR ---
On 02/02/21, the student, Lillian Welsh, provided care and completed [facility] documentation on this patient. I have reviewed the student's documentation and agree with the findings.
[2021-02-02 08:05] LABS: Glucose Point of Care 310 mg/dl (65-105)
[2021-02-02] MEDS: PANTOPRAZOLE SODIUM IV 40 MG VIAL IV PUSH (08:05)
[2021-02-02] MEDS: INSULIN GLARGINE (*BKC) 100 UNITS/ML 20 UNITS SUB-Q ×2 (08:16→20:18)
[2021-02-02 09:30] LABS: Fractional Inspired Oxygen 30 %; HCO3 ABG 22.1 mEq/l (22.0-26.0); Oxygen Content ABG 16.4 %vol (16.0-22.0); Oxygen Saturation ABG 97.3 % (95.0-100.0); PCO2 ABG 35.2 mmHg (35.0-45.0); PO2 ABG 93.5 mmHg (80.0-100.0); PO2 FiO2 Ratio Arterial Blood 3.12 %; Total Hemoglobin 12.1 g/dL (12.0-18.0); pH ABG 7.415 (7.350-7.450)
[2021-02-02 09:32] LABS: Device VENTILATOR; Site Drawn LEFT BRACHIAL
[2021-02-02 09:33] LABS: Arterial Blood Gas Vent Mode SPONTANEOUS; Arterial Blood Gas Ventilator rate 0 /MIN
[2021-02-02 09:34] LABS: Arterial Blood Gas PEEP 5 cmH2O; Arterial Blood Gas Pressure Support 8 cmH2O; Arterial Blood Gas Tidal Volume 0 ml; Peak Inspiratory Pressure 0 cmH2O
--- NOTE | 2021-02-02 10:48 | PCNFU ---
Nutrition Follow-Up Complete: Inadequate Oral intake as related to mechanical ventilation as evidenced by Tube feedings. Goal: Meet estimated nutritional needs Patient is progressing towards goal. We will continue current goal. Pt current nutrition is NPO. Last recorded weight is 123.8 kg, up from 119.1 kg on admit. Bowel Motility:+BM reported 02/02 Labs Reviewed:Mg 2.4, BUN 78,Cr 3.6,Alb 2.87,Hgb 10.8,Hct 33.2 Meds Noted: Primaxin,Solu-Cortef, Lantus, Protonix Skin:WNL Additional Notes: Nutrition follow up. Patient has been successfully extubated today. Beside Swallow ordered. Diet order recommendations: Diabetic/Renal Dialysis diet when advancing diet. Monitoring: Will monitor every 3 days.
--- NOTE | 2021-02-02 11:15 | WPDINTPN ---
Progress Note: A&P Assessment and Plan (1) Septic shock: Code(s): A41.9 - Sepsis, unspecified organism; R65.21 - Severe sepsis with septic shock Status: Acute Assessment and Plan: Severe sepsis secondary to UTI, kidney stone, instrumentation -01/28/2021: Blood cultures growing E coli 2 of 2 bottles pansensitive -01/28/2021: Urine cultures growing E coli -continue imipenem -: Preliminary results - No growth x2 -OFF all pressors -LFTs improving -patient had dialysis (2) Urinary tract infection: Qualifiers: Hematuria presence: without hematuria Urinary tract infection type: site unspecified Qualified Code(s): N39.0 - Urinary tract infection, site not specified Code(s): N39.0 - Urinary tract infection, site not specified Status: Acute Assessment and Plan: See above (3) PERZE (acute kidney injury): Code(s): N17.9 - Acute kidney failure, unspecified Status: Acute Assessment and Plan: Likely secondary to sepsis and obstruction leading to hydronephrosis. Patient also on diuretics and Tyrell inhibitor which are on hold CT reviewed. -status post left ureteral stent placed by Urology on 01/28/2021 Continue maintenance IV fluids with bicarbonate -obtain urine lytes Monitor urine output creatinine electrolytes -obtained renal ultrasound this morning, 01/30: 1. Left kidney poorly visualized. Hydronephrosis cannot be confirmed or excluded. 2. 7 mm nonobstructing right kidney stone. -discussed with Urology, will order CT scan of the abdomen and pelvis -CT scan of the abdomen pelvis 01/30/2021: Left internal ureteral stent in expected position with 4 mm stone adjacent to the proximal stent and 4 mm stone in the urinary bladder.2. Nonobstructing right nephrolithiasis. -dialysis catheter was placed on 01/31/2021 and started on HD on the same day -patient was dialyzed on 01/31, 02/01. -discuss with Nephrology, will dialyze patient again today (4) Calculus of left kidney: Code(s): N20.0 - Calculus of kidney Status: Acute Assessment and Plan: CT MPRESSION: 1. Bilateral nephrolithiasis with obstructing 5-6 mm proximal left ureteral stone with mild left hydroureteronephrosis. Status post cystoscopy, left retrograde pyelogram and left ureteral stent placement on 01/28/2021 -urology following the patient (5) Transaminitis: Code(s): R74.01 - Elevation of levels of liver transaminase levels Status: Acute Assessment and Plan: Likely secondary to shock. Hold statin LFTs trending down (6) Encephalopathy: Code(s): G93.40 - Encephalopathy, unspecified Status: Acute Assessment and Plan: Patient is intubated, awake, follows simple commands Head CT negative Currently intubated with adequate ABGs (7) Elevated troponin: Code(s): R77.8 - Other specified abnormalities of plasma proteins Status: Acute Assessment and Plan: Likely type 2 non STEMI from sepsis. EKG reviewed and shows no ST elevation. Serial troponin continue aspirin Echocardiogram 01/30/2021: EF of 60-65%, grade 2 diastolic dysfunction no segmental wall motion abnormalities, moderate pulmonary hypertension with RVSP of 48 mmHg. Appreciate cardiology evaluation (8) Hyperkalemia: Code(s): E87.5 - Hyperkalemia Status: Acute Assessment and Plan: Resolved: Patient also on dialysis (9) DKA (diabetic ketoacidosis): Code(s): E11.10 - Type 2 diabetes mellitus with ketoacidosis without coma Status: Acute Assessment and Plan: Hyperglycemia: continue High dose SSI and accucheks -continue Lantus Additional Plan Discussed with patient and her son and updated both of them with her condition and plan of care. I answered all questions Code status: Full code Critical care time spent: 32 minutes This dictation may have been done utilizing a voice recognition system. Attempts have been made to cor
[2021-02-02 11:58] LABS: Glucose Point of Care 270 mg/dl (65-105)
--- NOTE | 2021-02-02 13:39 | P.PNNP_ITS ---
Progress Note: A&P Assessment and Plan (1) PEREZ (acute kidney injury): Code(s): N17.9 - Acute kidney failure, unspecified Status: Acute Assessment and Plan: * multifactorial ATN: - sepsis/infection (UTI) - obstruction/hydronephrosis - concurrent ALICE-I and diuretic use prior to admission * bilateral nephrolithiasis with obstructing 5-6 mm proximal left ureteral stone with mild left hydroureteronephrosis by admission CT scan * status post cystoscopy, left retrograde pyelogram and left ureteral stent placement on 01/28/2021 * s/p IVF resuscitation * due to rising BUN and creatinine in association with declining urine output, 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 * HD today (2) Septic shock: Code(s): A41.9 - Sepsis, unspecified organism; R65.21 - Severe sepsis with septic shock Status: Acute Assessment and Plan: * resolved * due to combination of UTI, nephrolithiasis, and instrumentation * appears to be urosepsis: * blood culture with E.coli (2 of 2 bottles) * urine culture with E.coli * follow repeat cultures * off pressor therapy at this time * continue IV antibiotics (3) Acute respiratory failure: Code(s): J96.00 - Acute respiratory failure, unspecified whether with hypoxia or hypercapnia Status: Acute Assessment and Plan: * resolved - extubated * due to encephalopathy (4) Urinary tract infection: Qualifiers: Hematuria presence: without hematuria Urinary tract infection type: site unspecified Qualified Code(s): N39.0 - Urinary tract infection, site not specified Code(s): N39.0 - Urinary tract infection, site not specified Status: Acute Assessment and Plan: * see #2 * urine culture with E. coli (5) Hyperkalemia: Code(s): E87.5 - Hyperkalemia Status: Acute Assessment and Plan: * resolved * likely due to PEREZ and acidosis along with hyperglycemia * follow repeat levels (6) Elevated troponin: Code(s): R77.8 - Other specified abnormalities of plasma proteins Status: Acute Assessment and Plan: * Cardiology recommendations noted * continue supportive care (7) Diabetes: Code(s): E11.9 - Type 2 diabetes mellitus without complications Status: Acute Assessment and Plan: * follow accuchecks * glycemic control Will continue to follow. Subjective Date/time seen: 02/02/21 13:39 Tolerated dialysis treatment yesterday; extubated earlier today and appears doing well from respiratory perspective; no issues/events overnight or earlier this AM; plan for HD treatment later today. Exam Narrative: General: WD/WN female in NAD; extubated Heart: normal S1 and S2; no rub Lungs: clear to auscultation Abdomen: soft, nontender, nondistended, positive bowel sounds Extremities: trace edema noted Skin: warm and intact Objective Data Vital Signs Vital Signs: Vital Signs Temp Pulse Resp BP Pulse Ox 02/02/21 12:00 36.4 C L 78 18 153/70 H 95 02/02/21 10:40 79 16 02/02/21 10:34 95 02/02/21 10:10 95 02/02/21 10:00 80 18 169/84 H 95 02/02/21 08:00 36.8 C 84 16 159/71 H 95 02/02/21 07:47 77 95 02/02/21 06:59 76 15 02/02/21 06:00 77 15 149/78 H 97 02/02/21 05:35 75 97
--- NOTE | 2021-02-02 13:39 | PM.PNNEP ---
Progress Note: A&P Assessment and Plan (1) PEREZ (acute kidney injury): Code(s): N17.9 - Acute kidney failure, unspecified Status: Acute Assessment and Plan: multifactorial ATN: - sepsis/infection (UTI) - obstruction/hydronephrosis - concurrent ALICE-I and diuretic use prior to admission bilateral nephrolithiasis with obstructing 5-6 mm proximal left ureteral stone with mild left hydroureteronephrosis by admission CT scan status post cystoscopy, left retrograde pyelogram and left ureteral stent placement on 01/28/2021 s/p IVF resuscitation due to rising BUN and creatinine in association with declining urine output, initiated of [employer]/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 HD today (2) Septic shock: Code(s): A41.9 - Sepsis, unspecified organism; R65.21 - Severe sepsis with septic shock Status: Acute Assessment and Plan: resolved due to combination of UTI, nephrolithiasis, and instrumentation appears to be urosepsis: blood culture with E.coli (2 of 2 bottles) urine culture with E.coli follow repeat cultures off pressor therapy at this time continue IV antibiotics (3) Acute respiratory failure: Code(s): J96.00 - Acute respiratory failure, unspecified whether with hypoxia or hypercapnia Status: Acute Assessment and Plan: resolved - extubated due to encephalopathy (4) Urinary tract infection: Qualifiers: Hematuria presence: without hematuria Urinary tract infection type: site unspecified Qualified Code(s): N39.0 - Urinary tract infection, site not specified Code(s): N39.0 - Urinary tract infection, site not specified Status: Acute Assessment and Plan: see #2 urine culture with E. coli (5) Hyperkalemia: Code(s): E87.5 - Hyperkalemia Status: Acute Assessment and Plan: resolved likely due to PEREZ and acidosis along with hyperglycemia follow repeat levels (6) Elevated troponin: Code(s): R77.8 - Other specified abnormalities of plasma proteins Status: Acute Assessment and Plan: Cardiology recommendations noted continue supportive care (7) Diabetes: Code(s): E11.9 - Type 2 diabetes mellitus without complications Status: Acute Assessment and Plan: follow accuchecks glycemic control Will continue to follow. Subjective Date/time seen: 02/02/21 13:39 Tolerated dialysis treatment yesterday; extubated earlier today and appears doing well from respiratory perspective; no issues/events overnight or earlier this AM; plan for HD treatment later today. Exam Narrative: General: WD/WN female in NAD; extubated Heart: normal S1 and S2; no rub Lungs: clear to auscultation Abdomen: soft, nontender, nondistended, positive bowel sounds Extremities: trace edema noted Skin: warm and intact Objective Data Vital Signs Vital Signs: Vital Signs Temp Pulse Resp BP Pulse Ox 02/02/21 12:00 36.4 C L 78 18 153/70 H 95 02/02/21 10:40 79 16 02/02/21 10:34 95 02/02/21 10:10 95 02/02/21 10:00 80 18 169/84 H 95 02/02/21 08:00 36.8 C 84 16 159/71 H 95 02/02/21 07:47 77 95 02/02/21 06:59 76 15 02/02/21 06:00 77 15 149/78 H 97 02/02/21 05:35 75 97 02/02/21 04:00 36.3 C L 76 15 159/69 H 97 02/02/21 02:10 78 97 02/02/21 01:51 79 15 141/69 H 97 02/02/21 00:31 78 15 02/02/21 00:00 36.6 C 78 15 150/66 H 98 02/01/21 23:30 78 99 02/01/21 22:00 73 16 135/65 93 02/01/21 20:23 75 92 02/01/21 20:00 36.6 C 76 19 133/62 93 02/01/21 18:00 87 18 140/63 95 02/01/21 16:29 81 94 02/01/21 16:19 84 22 H 02/01/21 16:00 36.8 C 84 22 H 147/92 H 94 Intake/Output Intake/Output: Intake & Output 01/30/21 01/31/21 02/01/21 02/02/21 23:59 23:59 23:59 23:59 Intake Total 3322.2 2413.8 1220 917 Output Total 220 1100 2523
[2021-02-02 13:51] LABS: Chloride Rand Ur 54 mmol/L (32-290); Chloride/Creatinine Rand Ur 52 (38-318); Creatinine Random Urine 103 mg/dL (20-275)
--- NOTE | 2021-02-02 14:39 | PCPTNOTE ---
Pt was just extubated this a.m. - RN suggested that PT eval wait until tomorrow. Will perform eval tomorrow.
--- NOTE | 2021-02-02 15:05 | PCOTNOTE ---
Attempted to evaluate, pt was just extubated this a.m. - RN requested that wait until tomorrow for OT luis daniel
--- NOTE | 2021-02-02 15:41 | PCSTNOTE ---
Please refer to the Bedside Swallow Evaluation in the EMR. Please note, silent aspiration cannot be ruled out at bedside.
[2021-02-02 16:03] LABS: Glucose Point of Care 227 mg/dl (65-105)
--- NOTE | 2021-02-02 16:09 | WPDUROPN2 ---
Progress Note: A&P Assessment and Plan (1) Left ureteral calculus: Code(s): N20.1 - Calculus of ureter Status: Acute Assessment and Plan: Will address as an outpatient after discharge. No further surgical plans at this time, stent remains in place, she is tolerating it well. (2) PEREZ (acute kidney injury): Code(s): N17.9 - Acute kidney failure, unspecified Status: Acute Assessment and Plan: Improving on dialysis. (3) Urinary tract infection: Qualifiers: Hematuria presence: without hematuria Urinary tract infection type: site unspecified Qualified Code(s): N39.0 - Urinary tract infection, site not specified Code(s): N39.0 - Urinary tract infection, site not specified Status: Acute Assessment and Plan: Continue IV antibiotics. Subjective Subjective Date/Time Seen: 02/02/21 16:09 Patient is significantly improved today, she is extubated, alert and talking. Her creatinine is improved at 3.60, she remains on dialysis and urine is draining to gravity. She has an elevated WBC still at this time. Her Stent was shown to be in place on CT 01/29/2021. She continues on IV antibiotics. Review of Systems Cardiovascular: Cardiovascular: Denies chest pain Respiratory: Respiratory: Reports no additional respiratory complaints Gastrointestinal: Gastrointestinal: Denies abdominal pain, Denies nausea and Denies vomiting Genitourinary: Genitourinary: Denies hematuria Exam Resp: Effort & Inspection: tachypneic Cardio: Rate: regular rate GI: GI Palp: Yes Soft to palpation and No Tenderness to palpation present (GI) : General: Yes no CVA tenderness Urinary Catheter: Urinary Catheter: patent and draining, urine cloudy and urine dark Extrem: General: edema bilateral Objective Data Vital Signs Vital Signs: Vital Signs - 24 hr 02/01/21 16:19 02/01/21 16:29 02/01/21 18:00 Temperature Pulse Rate 84 81 87 Respiratory Rate 22 H 18 Blood Pressure 140/63 Pulse Oximetry 94 95 02/01/21 20:00 02/01/21 20:23 02/01/21 22:00 Temperature 97.8 F Pulse Rate 76 75 73 Respiratory Rate 19 16 Blood Pressure 133/62 135/65 Pulse Oximetry 93 92 93 02/01/21 23:30 02/02/21 00:00 02/02/21 00:31 Temperature 97.9 F Pulse Rate 78 78 78 Respiratory Rate 15 15 Blood Pressure 150/66 H Pulse Oximetry 99 98 02/02/21 01:51 02/02/21 02:10 02/02/21 04:00 Temperature 97.4 F L Pulse Rate 79 78 76 Respiratory Rate 15 15 Blood Pressure 141/69 H 159/69 H Pulse Oximetry 97 97 97 02/02/21 05:35 02/02/21 06:00 02/02/21 06:59 Temperature Pulse Rate 75 77 76 Respiratory Rate 15 15 Blood Pressure 149/78 H Pulse Oximetry 97 97 02/02/21 07:47 02/02/21 08:00 02/02/21 10:00 Temperature 98.2 F Pulse Rate 77 84 80 Respiratory Rate 16 18 Blood Pressure 159/71 H 169/84 H Pulse Oximetry 95 95 95 02/02/21 10:10 02/02/21 10:34 02/02/21 10:40 Temperature Pulse Rate 79 Respiratory Rate 16 Blood Pressure Pulse Oximetry 95 95 02/02/21 12:00 02/02/21 14:00 Temperature 97.5 F L Pulse Rate 78 78 Respiratory Rate 18 18 Blood Pressure 153/70 H 149/80 H Pulse Oximetry 95 94 Intake/Output Intake/Output: Intake & Output 01/30/21 01/31/21 02/01/21 02/02/21 23:59 23:59 23:59 23:59 Intake Total 3322.2 2413.8 1220 917 Output Total 220 1100 2523 50 Balance 3102.2 1313.8 -1303 867 Meds/Results Medications: Active Medications Generic Name Dose Route Start Last Admin Trade Name Freq PRN Reason Stop Dose Admin Dextrose 12.5 gm 01/28/21 17:01 Dextrose 50% 25 Gm/50 Ml Syringe IV PUSH PRN PRN Hypoglycemia Protocol Epoetin Caesar 4,000 units 02/02/21 23:17 Epoetin Caesar 4,000 Units/Ml Vial IV PUSH 02/02/21 23:18 ONCE ONE Epoetin Caesar-epbx 4,000 units 02/02/21 23:55 Epoetin Caesar-Epbx 4,000 Units/Ml Vial IV PUSH 02/02/21 23:56 ONCE ONE Glucagon 1 mg 01/28/21 17:01
[2021-02-02] MEDS: EPOETIN ALFA-EPBX 4,000 UNITS/ML VIAL 4000 UNITS IV PUSH (18:28)
[2021-02-02 20:28] LABS: Glucose Point of Care 175 mg/dl (65-105)
[2021-02-03] VITALS (12 sets, daily range): BP systolic 114–145; BP diastolic 52–75; PULSE 78–83; RESP 18–20; TEMP 36.1–37; O2SAT 93–98
[2021-02-03] MEDS: INSULIN ASPART (*BKC) 100 UNITS/ML SUB-Q ×2 (00:13→12:58)
[2021-02-03 00:25] LABS: Glucose Point of Care 206 mg/dl (65-105)
[2021-02-03] MEDS: CENTRAL LINE FLUSH 10 ML IV PUSH ×3 (04:57→21:05)
[2021-02-03 05:13] LABS: Glucose Point of Care 173 mg/dl (65-105)
[2021-02-03 05:37] LABS: Hematocrit 34.1 % (37.0-47.0); Hemoglobin 11.3 g/dL (12.0-15.0); Immature Platelet Fraction Pct 14.4 % (0.9-11.2); Mean Corpuscular HGB Conc 33.1 g/dl (32-36); Mean Corpuscular Hemoglobin 30.5 pg (26-34); Mean Corpuscular Volume 91.9 fl (80-100); Mean Platelet Volume 13.1 fl (7.4-10.4); Platelet Count Result 53 k/mm3 (150-375); Red Blood Count 3.71 M/mm3 (4.2-5.4); Red Cell Distribution Width 13.7 % (11.5-14.5); White Blood Count 22.5 K/mm3 (4.5-10.0)
[2021-02-03 05:59] LABS: Alanine Aminotransferase 83 U/L (4-35); Albumin Level 2.6 g/dL (3.5-5.1); Alkaline Phosphatase 315 U/L (38-126); Anion Gap 7 mmol/L (8-16); Aspartate Amino Transferase 44 U/L (14-36); Bilirubin,Total 1.2 mg/dL (0.2-1.3); Blood Urea Nitrogen 60 mg/dL (7-17); Calcium 8.1 mg/dL (8.4-10.2); Carbon Dioxide 24 mmol/L (22-30); Chloride 107 mmol/L (98-107); Estimated CRCL calculation 25 ml/min; Estimated Glomerular Filt Rate 18; Glucose 178 mg/dL (65-110); Magnesium 2.1 mg/dL (1.6-2.3); Phosphorus 4.2 mg/dL (2.5-4.5); Potassium 4.4 mmol/L (3.4-5.0); Sodium 138 mmol/L (137-145)
[2021-02-03 07:56] LABS: Atypical Lymphocytes Present; Band Neutrophils Percent 6 % (0-6); Eosinophils Absolute Manual 0.22 K/mm3 (0.02-0.5); Eosinophils Percent Manual 1 % (0-4); Lymphocytes Absolute Manual 1.35 K/mm3 (1.1-4.5); Metamyelocytes Percent 2 %; Monocytes Absolute Manual 0.67 K/mm3 (0.1-0.90); Monocytes Percent Manual 3 % (3-9); Neutrophils Percent Manual 82 % (46-73); Platelet Estimate Decreased (Adequate); Total Cells Counted 100
--- NOTE | 2021-02-03 08:50 | PM.PNCARD ---
Progress Note: A&P Additional Plan 65-year-old lady with Type 2 myocardial infarction in the setting of urosepsis and septic shock. The patient has stabilized clinically with treatment of her sepsis she is off pressors and there are no active cardiac problems as best as I can tell. I would attribute her troponin rise on a on admission to the septic shock and at this time since her echocardiogram did not show any ischemic wall motion abnormalities I do not believe I would recommend initiating ischemic workup. Her renal failure is currently requiring dialysis at this time. I will formally sign off of her case at this time please call me if cardiac input/follow-up is necessary during this hospitalization. Abe Tanner MD [facility] Subjective Date/time seen: Date of service: 02/03/21 08:50 Interval history: Interval history: Reason for consult: Septic shock, acute respiratory failure, acute kidney injury, UTI, kidney stone status post left ureteral stent placement on 01/28/2021 Date of service 02/03/2021: Patient without any clinical cardiac problems and a number of days. She has recovered satisfactorily from her urosepsis is now off of pressors and is more stable. Echocardiogram did not show any ischemic wall motion abnormalities. No cardiovascular complaints Exam Const: General: ill appearing Nutritional Appearance: obese Other: Morbidly obese intubated lady in the ICU sedated HENMT: Head: normal to inspection Mouth: Yes moist mucous membranes Eyes: Sclera: sclerae normal Pupils: Equal, round and reactive pupils present Neck: Neck: supple and no JVD Resp: Effort & Inspection: normal respiratory effort (Mechanically ventilated) Other: Breath sounds clear anteriorly Cardio: Rate: regular rate Rhythm: regular rhythm Heart sounds: no murmurs Other: PMI not palpable no audible murmur or gallop GI: Auscultation: normal bowel sounds Urinary Catheter: Urinary Catheter: patent and draining and urine dark Skin: General skin exam: normal color Neuro: Cranial nerves: Yes Equal, round and reactive pupils present Extrem: General: normal to inspection Other: Unable to palpate left pedal pulse. DP signal obtained with Doppler. Objective Data Vital Signs Vital Signs: Vital Signs - 24 hr 02/02/21 10:00 02/02/21 10:10 02/02/21 10:34 Temperature Pulse Rate 80 Respiratory Rate 18 Blood Pressure 169/84 H Pulse Oximetry 95 95 95 02/02/21 10:40 02/02/21 12:00 02/02/21 14:00 Temperature 36.4 C L Pulse Rate 79 78 78 Respiratory Rate 16 18 18 Blood Pressure 153/70 H 149/80 H Pulse Oximetry 95 94 02/02/21 15:30 02/02/21 15:45 02/02/21 16:00 Temperature 36.7 C Pulse Rate 79 79 82 Respiratory Rate 18 Blood Pressure 155/76 H 140/73 127/68 Pulse Oximetry 97 02/02/21 16:30 02/02/21 17:00 02/02/21 17:15 Temperature Pulse Rate 83 82 85 Respiratory Rate Blood Pressure 133/66 132/75 98/69 L Pulse Oximetry 02/02/21 17:30 02/02/21 17:45 02/02/21 17:53 Temperature 36.6 C Pulse Rate 80 80 82 Respiratory Rate 19 Blood Pressure 133/71 130/70 150/71 H Pulse Oximetry 02/02/21 18:00 02/02/21 18:30 02/02/21 19:20 Temperature 36.7 C Pulse Rate 80 79 82 Respiratory Rate 16 20 Blood Pressure 143/70 H 151/78 H 156/74 H Pulse Oximetry 95 02/02/21 20:00 02/02/21 22:00 02/03/21 00:00 Temperature 36.4 C L 36.7 C Pulse Rate 86 80 80 Respiratory Rate 17 19 20 Blood Pressure 149/72 H 139/72 142/66 H Pulse Oximetry 96 94 94 02/03/21 02:00 02/03/21 04:00 02/03/21 06:00 Temperature 36.4 C Pulse Rate 78 81 78 Respiratory Rate 20 20 20 Blood Pressure 123/55 L 139/59 L 126/57 L Pulse Oximetry 93 95 94 Intake/Output Intake/Output: Intake & Output 01/31/21 02/01/21 02/02/21 02/03/21 23:59 23:59 23:59 23:59 Intake Total 2413.8 1220 1017 Output Total 1100 2523 1800 140 Balance 1313.8 -1303 -783 -140 Meds/Results Medications: Active Medication
--- NOTE | 2021-02-03 09:14 | PCSTNOTE ---
Stopped order for additional bedside swallow evaluation (BSSE) as the BSSE was completed less than 24 hours ago. Attempted to contact treating RN and MD Guthrie, however neither were available after 3x attempts. Please reach out should concerns arise requiring skilled ST services.
[2021-02-03] MEDS: PANTOPRAZOLE SODIUM IV 40 MG VIAL IV PUSH (10:14)
[2021-02-03] MEDS: INSULIN GLARGINE (*BKC) 100 UNITS/ML 20 UNITS SUB-Q ×2 (10:27→21:06)
[2021-02-03 10:38] LABS: Glucose Point of Care 176 mg/dl (65-105)
--- NOTE | 2021-02-03 12:03 | WPDINTPN ---
Progress Note: A&P Assessment and Plan (1) Septic shock: Code(s): A41.9 - Sepsis, unspecified organism; R65.21 - Severe sepsis with septic shock Status: Acute Assessment and Plan: RESOLVED: Patient has been off all pressors for greater than 48 hours Severe sepsis secondary to UTI, kidney stone, instrumentation -01/28/2021: Blood cultures growing E coli 2 of 2 bottles pansensitive -01/28/2021: Urine cultures growing E coli -continue imipenem -02/01/2021: Preliminary results - No growth x2 -OFF all pressors -LFTs improving -patient had dialysis (2) Urinary tract infection: Qualifiers: Hematuria presence: without hematuria Urinary tract infection type: site unspecified Qualified Code(s): N39.0 - Urinary tract infection, site not specified Code(s): N39.0 - Urinary tract infection, site not specified Status: Acute Assessment and Plan: See above (3) PEREZ (acute kidney injury): Code(s): N17.9 - Acute kidney failure, unspecified Status: Acute Assessment and Plan: Likely secondary to sepsis and obstruction leading to hydronephrosis. Patient also on diuretics and Tyrell inhibitor which are on hold CT reviewed. -status post left ureteral stent placed by Urology on 01/28/2021 Continue maintenance IV fluids with bicarbonate -obtain urine lytes Monitor urine output creatinine electrolytes -obtained renal ultrasound this morning, 01/30: 1. Left kidney poorly visualized. Hydronephrosis cannot be confirmed or excluded. 2. 7 mm nonobstructing right kidney stone. -discussed with Urology, will order CT scan of the abdomen and pelvis -CT scan of the abdomen pelvis 01/30/2021: Left internal ureteral stent in expected position with 4 mm stone adjacent to the proximal stent and 4 mm stone in the urinary bladder.2. Nonobstructing right nephrolithiasis. -dialysis catheter was placed on 01/31/2021 and started on HD on the same day -patient was dialyzed on 01/31, 02/01, 02/02 -discussed with Nephrology, (4) Calculus of left kidney: Code(s): N20.0 - Calculus of kidney Status: Acute Assessment and Plan: CT MPRESSION: 1. Bilateral nephrolithiasis with obstructing 5-6 mm proximal left ureteral stone with mild left hydroureteronephrosis. Status post cystoscopy, left retrograde pyelogram and left ureteral stent placement on 01/28/2021 -urology following the patient (5) Transaminitis: Code(s): R74.01 - Elevation of levels of liver transaminase levels Status: Acute Assessment and Plan: Likely secondary to shock. Hold statin LFTs trending down (6) Encephalopathy: Code(s): G93.40 - Encephalopathy, unspecified Status: Acute Assessment and Plan: Resolved likely due to septic shock Head CT negative (7) Elevated troponin: Code(s): R77.8 - Other specified abnormalities of plasma proteins Status: Acute Assessment and Plan: Likely type 2 non STEMI from sepsis. EKG reviewed and shows no ST elevation. Serial troponin continue aspirin Echocardiogram 01/30/2021: EF of 60-65%, grade 2 diastolic dysfunction no segmental wall motion abnormalities, moderate pulmonary hypertension with RVSP of 48 mmHg. Appreciate cardiology evaluation (8) Hyperkalemia: Code(s): E87.5 - Hyperkalemia Status: Acute Assessment and Plan: Resolved: Patient also on dialysis (9) DKA (diabetic ketoacidosis): Code(s): E11.10 - Type 2 diabetes mellitus with ketoacidosis without coma Status: Acute Assessment and Plan: Hyperglycemia: continue High dose SSI and accucheks -continue Lantus Additional Plan Discussed with patient and her son and updated both of them with her condition and plan of care. I answered all questions Code status: Full code Critical care time spent: 32 minutes Will transfer to medical floor This dictation may have been done utilizing a voice recognition system. Attempts
--- NOTE | 2021-02-03 13:07 | PM.IMPN ---
Progress Note: A&P Assessment and Plan (1) Septic shock: Code(s): A41.9 - Sepsis, unspecified organism; R65.21 - Severe sepsis with septic shock Status: Acute Assessment and Plan: RESOLVED: Patient has been off all pressors for greater than 48 hours Severe sepsis secondary to UTI, kidney stone, instrumentation -01/28/2021: Blood cultures growing E coli 2 of 2 bottles pansensitive -01/28/2021: Urine cultures growing E coli -continue imipenem -02/01/2021: Preliminary results - No growth x2 -OFF all pressors -LFTs improving -patient had dialysis 02/03/21 13:07 patient is 65-year-old female was admitted with urosepsis septic shock resulting in respiratory failure and was intubated, patient was just extubated on 02/02 patient remains confused unable to provide detailed review of symptom patient blood and urine culture grew E coli pansensitive being treated for imipenem, and repeat blood culture on 02/01 still no growth, patient had elevated tropes seen by Cardiology suspect type 2 monitor infarction secondary to sepsis and patient end-stage renal disease, is on 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, patient will be transferred out of ICU today, will continue to monitor patient (2) Urinary tract infection: Qualifiers: Hematuria presence: without hematuria Urinary tract infection type: site unspecified Qualified Code(s): N39.0 - Urinary tract infection, site not specified Code(s): N39.0 - Urinary tract infection, site not specified Status: Acute Assessment and Plan: See above (3) PEREZ (acute kidney injury): Code(s): N17.9 - Acute kidney failure, unspecified Status: Acute Assessment and Plan: Likely secondary to sepsis and obstruction leading to hydronephrosis. Patient also on diuretics and Tyrell inhibitor which are on hold CT reviewed. -status post left ureteral stent placed by Urology on 01/28/2021 Continue maintenance IV fluids with bicarbonate -obtain urine lytes Monitor urine output creatinine electrolytes -obtained renal ultrasound this morning, 01/30: 1. Left kidney poorly visualized. Hydronephrosis cannot be confirmed or excluded. 2. 7 mm nonobstructing right kidney stone. -discussed with Urology, will order CT scan of the abdomen and pelvis -CT scan of the abdomen pelvis 01/30/2021: Left internal ureteral stent in expected position with 4 mm stone adjacent to the proximal stent and 4 mm stone in the urinary bladder.2. Nonobstructing right nephrolithiasis. -dialysis catheter was placed on 01/31/2021 and started on HD on the same day -patient was dialyzed on 01/31, 02/01, 02/02 -discussed with Nephrology, (4) Calculus of left kidney: Code(s): N20.0 - Calculus of kidney Status: Acute Assessment and Plan: CT MPRESSION: 1. Bilateral nephrolithiasis with obstructing 5-6 mm proximal left ureteral stone with mild left hydroureteronephrosis. Status post cystoscopy, left retrograde pyelogram and left ureteral stent placement on 01/28/2021 -urology following the patient (5) Transaminitis: Code(s): R74.01 - Elevation of levels of liver transaminase levels Status: Acute Assessment and Plan: Likely secondary to shock. Hold statin LFTs trending down (6) Encephalopathy: Code(s): G93.40 - Encephalopathy, unspecified Status: Acute Assessment and Plan: Resolved likely due to septic shock Head CT negative (7) Elevated troponin: Code(s): R77.8 - Other specified abnormalities of plasma proteins Status: Acute Assessment and Plan: Likely type 2 non STEMI from sepsis. EKG reviewed and shows no ST elevation. Serial troponin continue aspirin Echocardiogram 01/30/2021: EF of 60-65%, grade 2 diastolic dysfunction no segmental wall motion abnormalities, moderate pulmonary hypertension with RVSP of 48 mmHg. Appreciate cardiology evaluation (8) Hyperkalemia: Code(s): E87.5 - Hyperkalemia Status: Acute As
--- NOTE | 2021-02-03 13:51 | P.PNNP_ITS ---
Progress Note: A&P Assessment and Plan (1) PEREZ (acute kidney injury): Code(s): N17.9 - Acute kidney failure, unspecified Status: Acute Assessment and Plan: * multifactorial ATN: - sepsis/infection (UTI) - obstruction/hydronephrosis - concurrent ALICE-I and diuretic use prior to admission * bilateral nephrolithiasis with obstructing 5-6 mm proximal left ureteral stone with mild left hydroureteronephrosis by admission CT scan * status post cystoscopy, left retrograde pyelogram and left ureteral stent placement on 01/28/2021 * s/p IVF resuscitation * due to rising BUN and creatinine in association with declining urine output, initiated of [employer]/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 * HD yesterday -- hold this and reassess on Friday (2) Septic shock: Code(s): A41.9 - Sepsis, unspecified organism; R65.21 - Severe sepsis with septic shock Status: Acute Assessment and Plan: * resolved * due to combination of UTI, nephrolithiasis, and instrumentation * appears to be urosepsis: * blood culture with E.coli (2 of 2 bottles) * urine culture with E.coli * follow repeat cultures * off pressor therapy at this time * continue IV antibiotics (3) Acute respiratory failure: Code(s): J96.00 - Acute respiratory failure, unspecified whether with hypoxia or hypercapnia Status: Acute Assessment and Plan: * resolved - extubated * due to encephalopathy (4) Urinary tract infection: Qualifiers: Hematuria presence: without hematuria Urinary tract infection type: site unspecified Qualified Code(s): N39.0 - Urinary tract infection, site not specified Code(s): N39.0 - Urinary tract infection, site not specified Status: Acute Assessment and Plan: * see #2 * urine culture with E. coli (5) Hyperkalemia: Code(s): E87.5 - Hyperkalemia Status: Acute Assessment and Plan: * resolved * likely due to PEREZ and acidosis along with hyperglycemia * follow repeat levels (6) Elevated troponin: Code(s): R77.8 - Other specified abnormalities of plasma proteins Status: Acute Assessment and Plan: * Cardiology recommendations noted * continue supportive care (7) Diabetes: Code(s): E11.9 - Type 2 diabetes mellitus without complications Status: Acute Assessment and Plan: * follow accuchecks * glycemic control Will continue to follow. Subjective Date/time seen: 02/03/21 13:51 Other than complaints of weakness, seems to be doing reasoably well; tolerated dialysis yesterday without any issues or problems; no events overnight or earlier this morning; stable hemodynamics and respiratory status noted. Exam Narrative: General: WD/WN female in NAD Heart: normal S1 and S2; no rub Lungs: clear to auscultation Abdomen: soft, nontender, nondistended, positive bowel sounds Extremities: trace edema noted Skin: warm and intact Objective Data Vital Signs Vital Signs: Vital Signs Temp Pulse Resp BP Pulse Ox 02/03/21 13:00 36.3 C L 79 20 114/75 97 02/03/21 10:00 78 20 132/59 L 97 02/03/21 08:00 36.3 C L 83 20 145/61 H 95 02/03/21 06:00 78 20 126/57 L 94 02/03/21 04:00 36.4 C 81 20 139/59 L 95 02/03/21 02:00 78 20 123/55 L 93 02/03/21 00:00 36.7 C 80 20 142/66 H 9
--- NOTE | 2021-02-03 13:51 | PM.PNNEP ---
Progress Note: A&P Assessment and Plan (1) PEREZ (acute kidney injury): Code(s): N17.9 - Acute kidney failure, unspecified Status: Acute Assessment and Plan: multifactorial ATN: - sepsis/infection (UTI) - obstruction/hydronephrosis - concurrent ALICE-I and diuretic use prior to admission bilateral nephrolithiasis with obstructing 5-6 mm proximal left ureteral stone with mild left hydroureteronephrosis by admission CT scan status post cystoscopy, left retrograde pyelogram and left ureteral stent placement on 01/28/2021 s/p IVF resuscitation due to rising BUN and creatinine in association with declining urine output, initiated of EVENT PLANNING MANAGER/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 HD yesterday -- hold this and reassess on Friday (2) Septic shock: Code(s): A41.9 - Sepsis, unspecified organism; R65.21 - Severe sepsis with septic shock Status: Acute Assessment and Plan: resolved due to combination of UTI, nephrolithiasis, and instrumentation appears to be urosepsis: blood culture with E.coli (2 of 2 bottles) urine culture with E.coli follow repeat cultures off pressor therapy at this time continue IV antibiotics (3) Acute respiratory failure: Code(s): J96.00 - Acute respiratory failure, unspecified whether with hypoxia or hypercapnia Status: Acute Assessment and Plan: resolved - extubated due to encephalopathy (4) Urinary tract infection: Qualifiers: Hematuria presence: without hematuria Urinary tract infection type: site unspecified Qualified Code(s): N39.0 - Urinary tract infection, site not specified Code(s): N39.0 - Urinary tract infection, site not specified Status: Acute Assessment and Plan: see #2 urine culture with E. coli (5) Hyperkalemia: Code(s): E87.5 - Hyperkalemia Status: Acute Assessment and Plan: resolved likely due to PEREZ and acidosis along with hyperglycemia follow repeat levels (6) Elevated troponin: Code(s): R77.8 - Other specified abnormalities of plasma proteins Status: Acute Assessment and Plan: Cardiology recommendations noted continue supportive care (7) Diabetes: Code(s): E11.9 - Type 2 diabetes mellitus without complications Status: Acute Assessment and Plan: follow accuchecks glycemic control Will continue to follow. Subjective Date/time seen: 02/03/21 13:51 Other than complaints of weakness, seems to be doing reasoably well; tolerated dialysis yesterday without any issues or problems; no events overnight or earlier this morning; stable hemodynamics and respiratory status noted. Exam Narrative: General: WD/WN female in NAD Heart: normal S1 and S2; no rub Lungs: clear to auscultation Abdomen: soft, nontender, nondistended, positive bowel sounds Extremities: trace edema noted Skin: warm and intact Objective Data Vital Signs Vital Signs: Vital Signs Temp Pulse Resp BP Pulse Ox 02/03/21 13:00 36.3 C L 79 20 114/75 97 02/03/21 10:00 78 20 132/59 L 97 02/03/21 08:00 36.3 C L 83 20 145/61 H 95 02/03/21 06:00 78 20 126/57 L 94 02/03/21 04:00 36.4 C 81 20 139/59 L 95 02/03/21 02:00 78 20 123/55 L 93 02/03/21 00:00 36.7 C 80 20 142/66 H 94 02/02/21 22:00 80 19 139/72 94 02/02/21 20:00 36.4 C L 86 17 149/72 H 96 02/02/21 19:20 36.7 C 82 20 156/74 H 02/02/21 18:30 79 151/78 H 02/02/21 18:00 80 16 143/70 H 95 02/02/21 17:53 36.6 C 82 19 150/71 H 02/02/21 17:45 80 130/70 02/02/21 17:30 80 133/71 02/02/21 17:15 85 98/69 L 02/02/21 17:00 82 132/75 02/02/21 16:30 83 133/66 02/02/21 16:00 36.7 C 82 18 127/68 97 02/02/21 15:45 79 140/73 02/02/21 15:30 79 155/76 H 02/02/21 14:00 78 18 149/80 H 94 Intake/Output Intake/Output: Intake & Output
--- NOTE | 2021-02-03 14:17 | PC.NURSE ---
This patient, Isamar Sarabia, was received from ICU on 02/03/21 at 1400.Report received from Nikky GRANADOS Patient/family oriented to unit policies and routines
[2021-02-03 16:56] LABS: Glucose Point of Care 170 mg/dl (65-105)
[2021-02-03 17:31] LABS: Glucose Point of Care 203 mg/dl (65-105)
[2021-02-03 21:16] LABS: Glucose Point of Care 202 mg/dl (65-105)
[2021-02-04 02:11] LABS: Glucose Point of Care 175 mg/dl (65-105)
[2021-02-04 02:17] VITALS: BP 134/61; PULSE 81; RESP 16; TEMP 37.1; O2SAT 98
[2021-02-04 06:00] VITALS: BP 140/65; PULSE 87; RESP 20; TEMP 36.6; O2SAT 99
[2021-02-04] MEDS: INSULIN GLARGINE (*BKC) 100 UNITS/ML 20 UNITS SUB-Q ×2 (08:03→21:20)
[2021-02-04] MEDS: PANTOPRAZOLE SODIUM IV 40 MG VIAL IV PUSH (08:07)
[2021-02-04] MEDS: CENTRAL LINE FLUSH 10 ML IV PUSH ×3 (08:07→21:16)
[2021-02-04 08:12] LABS: Glucose Point of Care 195 mg/dl (65-105)
[2021-02-04 09:33] LABS: Albumin Level 2.5 g/dL (3.5-5.1); Anion Gap 9 mmol/L (8-16); Blood Urea Nitrogen 83 mg/dL (7-17); Calcium 7.9 mg/dL (8.4-10.2); Carbon Dioxide 21 mmol/L (22-30); Chloride 104 mmol/L (98-107); Estimated CRCL calculation 18 ml/min; Estimated Glomerular Filt Rate 12; Glucose 235 mg/dL (65-110); Phosphorus 5.6 mg/dL (2.5-4.5); Potassium 4.8 mmol/L (3.4-5.0); Sodium 134 mmol/L (137-145)
--- NOTE | 2021-02-04 11:28 | PM.IMPN ---
Progress Note: A&P Assessment and Plan (1) Septic shock: Code(s): A41.9 - Sepsis, unspecified organism; R65.21 - Severe sepsis with septic shock Status: Acute Assessment and Plan: RESOLVED: Patient has been off all pressors for greater than 48 hours Severe sepsis secondary to UTI, kidney stone, instrumentation -01/28/2021: Blood cultures growing E coli 2 of 2 bottles pansensitive -01/28/2021: Urine cultures growing E coli -continue imipenem -02/01/2021: Preliminary results - No growth x2 -OFF all pressors -LFTs improving -patient had dialysis 02/04/21 11:28 02/03/21 patient is 65-year-old female was admitted with urosepsis septic shock resulting in respiratory failure and was intubated, patient was just extubated on 02/02 patient remains confused unable to provide detailed review of symptom patient blood and urine culture grew E coli pansensitive being treated for imipenem, and repeat blood culture on 02/01 still no growth, patient had elevated tropes seen by Cardiology suspect type 2 monitor infarction secondary to sepsis and patient end-stage renal disease, is on 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, patient will be transferred out of ICU today, will continue to monitor patient. 02/04/2021 Interval History: patient with urosepsis and septic shock was extubated on02/02 patient out out of ICU on medical floor states feels exhausted working with a physical therapy, urine and blood culture is growing E coli sensitive to imipenem will continue, repeat blood culture still no growth. will continue PT OT patient will benefit going to acute rehab, son is present in the room gave updates and answered all his questions. patient with end-stage renal disease on 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 seen by business risk consultant will have a scheduled dialysis. (2) Urinary tract infection: Qualifiers: Hematuria presence: without hematuria Urinary tract infection type: site unspecified Qualified Code(s): N39.0 - Urinary tract infection, site not specified Code(s): N39.0 - Urinary tract infection, site not specified Status: Acute Assessment and Plan: See above (3) PEREZ (acute kidney injury): Code(s): N17.9 - Acute kidney failure, unspecified Status: Acute Assessment and Plan: Likely secondary to sepsis and obstruction leading to hydronephrosis. Patient also on diuretics and Tyrell inhibitor which are on hold CT reviewed. -status post left ureteral stent placed by Urology on 01/28/2021 Continue maintenance IV fluids with bicarbonate -obtain urine lytes Monitor urine output creatinine electrolytes -obtained renal ultrasound this morning, 01/30: 1. Left kidney poorly visualized. Hydronephrosis cannot be confirmed or excluded. 2. 7 mm nonobstructing right kidney stone. -discussed with Urology, will order CT scan of the abdomen and pelvis -CT scan of the abdomen pelvis 01/30/2021: Left internal ureteral stent in expected position with 4 mm stone adjacent to the proximal stent and 4 mm stone in the urinary bladder.2. Nonobstructing right nephrolithiasis. -dialysis catheter was placed on 01/31/2021 and started on HD on the same day -patient was dialyzed on 01/31, 02/01, 02/02 -discussed with Nephrology, (4) Calculus of left kidney: Code(s): N20.0 - Calculus of kidney Status: Acute Assessment and Plan: CT MPRESSION: 1. Bilateral nephrolithiasis with obstructing 5-6 mm proximal left ureteral stone with mild left hydroureteronephrosis. Status post cystoscopy, left retrograde pyelogram and left ureteral stent placement on 01/28/2021 -urology following the patient (5) Transaminitis: Code(s): R74.01 - Elevation of levels of liver transaminase levels Status: Acute Assessment and Plan: Likely secondary to shock. Hold statin LFTs trending down (6) Encephalopathy: Code(s): G93.40 - Encephalopathy, unspecified Status: Acute Assessment and Plan: Resolved likely due to septic shock Head CT
[2021-02-04 11:45] LABS: Glucose Point of Care 231 mg/dl (65-105)
[2021-02-04] MEDS: INSULIN ASPART (*BKC) 100 UNITS/ML SUB-Q (11:45)
--- NOTE | 2021-02-04 13:56 | P.PNNP_ITS ---
Progress Note: A&P Assessment and Plan (1) PEREZ (acute kidney injury): Code(s): N17.9 - Acute kidney failure, unspecified Status: Acute Assessment and Plan: * multifactorial ATN: - sepsis/infection (UTI) - obstruction/hydronephrosis - concurrent ALICE-I and diuretic use prior to admission * bilateral nephrolithiasis with obstructing 5-6 mm proximal left ureteral stone with mild left hydroureteronephrosis by admission CT scan * status post cystoscopy, left retrograde pyelogram and left ureteral stent placement on 01/28/2021 * s/p IVF resuscitation * due to rising BUN and creatinine in association with declining urine output, initiated of EMPLOYMENT LAW ATTORNEY/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 * HD day before yesterday -- continue to hold this weekend and reassess tomorrow (2) Septic shock: Code(s): A41.9 - Sepsis, unspecified organism; R65.21 - Severe sepsis with septic shock Status: Acute Assessment and Plan: * resolved * due to combination of UTI, nephrolithiasis, and instrumentation * appears to be urosepsis: * blood culture with E.coli (2 of 2 bottles) * urine culture with E.coli * follow repeat cultures * off pressor therapy at this time * continue IV antibiotics (3) Acute respiratory failure: Code(s): J96.00 - Acute respiratory failure, unspecified whether with hypoxia or hypercapnia Status: Acute Assessment and Plan: * resolved - extubated * due to encephalopathy * respiratory status seems stable (4) Urinary tract infection: Qualifiers: Hematuria presence: without hematuria Urinary tract infection type: site unspecified Qualified Code(s): N39.0 - Urinary tract infection, site not specified Code(s): N39.0 - Urinary tract infection, site not specified Status: Acute Assessment and Plan: * see #2 * urine culture with E. coli (5) Hyperkalemia: Code(s): E87.5 - Hyperkalemia Status: Acute Assessment and Plan: * resolved * likely due to PEREZ and acidosis along with hyperglycemia * follow repeat levels (6) Elevated troponin: Code(s): R77.8 - Other specified abnormalities of plasma proteins Status: Acute Assessment and Plan: * Cardiology recommendations noted * continue supportive care (7) Diabetes: Code(s): E11.9 - Type 2 diabetes mellitus without complications Status: Acute Assessment and Plan: * follow accuchecks * glycemic control Will continue to follow. Subjective Date/time seen: 02/04/21 13:56 Has since been transferred out of the ICU; major complaint is that of fatigue/tiredness particularly with ongoing PT/OT; renal function fluctuating but does appear to be making urine output; no other acute issues/events overnight or earlier this AM. Exam Narrative: General: WD/WN female in NAD Heart: normal S1 and S2; no rub Lungs: clear to auscultation Abdomen: soft, nontender, nondistended, positive bowel sounds Extremities: trace edema noted Skin: no rash Objective Data Vital Signs Vital Signs: Vital Signs Temp Pulse Resp BP Pulse Ox 02/04/21 06:00 36.6 C 87 20 140/65 99 02/04/21 02:17 37.1 C 81 16 134/61 98 02/03/21 21:04 37.0 C 79 18 138/64 98 02/03/21 20:11 96 02/03/21 20:00 79 18 98 Intake/Output Intake/Output:
--- NOTE | 2021-02-04 13:56 | PM.PNNEP ---
Progress Note: A&P Assessment and Plan (1) PEREZ (acute kidney injury): Code(s): N17.9 - Acute kidney failure, unspecified Status: Acute Assessment and Plan: multifactorial ATN: - sepsis/infection (UTI) - obstruction/hydronephrosis - concurrent ALICE-I and diuretic use prior to admission bilateral nephrolithiasis with obstructing 5-6 mm proximal left ureteral stone with mild left hydroureteronephrosis by admission CT scan status post cystoscopy, left retrograde pyelogram and left ureteral stent placement on 01/28/2021 s/p IVF resuscitation due to rising BUN and creatinine in association with declining urine output, initiated of ENGINEERING MANAGER/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 HD day before yesterday -- continue to hold this weekend and reassess tomorrow (2) Septic shock: Code(s): A41.9 - Sepsis, unspecified organism; R65.21 - Severe sepsis with septic shock Status: Acute Assessment and Plan: resolved due to combination of UTI, nephrolithiasis, and instrumentation appears to be urosepsis: blood culture with E.coli (2 of 2 bottles) urine culture with E.coli follow repeat cultures off pressor therapy at this time continue IV antibiotics (3) Acute respiratory failure: Code(s): J96.00 - Acute respiratory failure, unspecified whether with hypoxia or hypercapnia Status: Acute Assessment and Plan: resolved - extubated due to encephalopathy respiratory status seems stable (4) Urinary tract infection: Qualifiers: Hematuria presence: without hematuria Urinary tract infection type: site unspecified Qualified Code(s): N39.0 - Urinary tract infection, site not specified Code(s): N39.0 - Urinary tract infection, site not specified Status: Acute Assessment and Plan: see #2 urine culture with E. coli (5) Hyperkalemia: Code(s): E87.5 - Hyperkalemia Status: Acute Assessment and Plan: resolved likely due to PEREZ and acidosis along with hyperglycemia follow repeat levels (6) Elevated troponin: Code(s): R77.8 - Other specified abnormalities of plasma proteins Status: Acute Assessment and Plan: Cardiology recommendations noted continue supportive care (7) Diabetes: Code(s): E11.9 - Type 2 diabetes mellitus without complications Status: Acute Assessment and Plan: follow accuchecks glycemic control Will continue to follow. Subjective Date/time seen: 02/04/21 13:56 Has since been transferred out of the ICU; major complaint is that of fatigue/tiredness particularly with ongoing PT/OT; renal function fluctuating but does appear to be making urine output; no other acute issues/events overnight or earlier this AM. Exam Narrative: General: WD/WN female in NAD Heart: normal S1 and S2; no rub Lungs: clear to auscultation Abdomen: soft, nontender, nondistended, positive bowel sounds Extremities: trace edema noted Skin: no rash Objective Data Vital Signs Vital Signs: Vital Signs Temp Pulse Resp BP Pulse Ox 02/04/21 06:00 36.6 C 87 20 140/65 99 02/04/21 02:17 37.1 C 81 16 134/61 98 02/03/21 21:04 37.0 C 79 18 138/64 98 02/03/21 20:11 96 02/03/21 20:00 79 18 98 Intake/Output Intake/Output: Intake & Output 02/01/21 02/02/21 02/03/21 02/04/21 23:59 23:59 23:59 23:59 Intake Total 1220 1017 420 440 Output Total 2523 1800 440 550 [facility] -1303 -783 -20 -110 Meds/Results Medications: Active Medications Generic Name Dose Route Start Last Admin Trade Name Freq PRN Reason Stop Dose Admin Acetaminophen 650 mg 02/04/21 12:04 Acetaminophen 325 Mg Tablet PO Q6H PRN Mild Pain (1-3) or Fever Dextrose 12.5 gm 01/28/21 17:01 Dextrose 50% 25 Gm/50 Ml Syringe IV PUSH PRN PRN Hypoglycemia Protocol Glucagon 1 mg 01/28/21 17:01 Glucagon For Inj 1 Mg Vial IM
[2021-02-04 14:01] VITALS: O2SAT 95
[2021-02-04 15:01] VITALS: BP 126/52; PULSE 87; RESP 16; TEMP 36; O2SAT 100
[2021-02-04 16:38] LABS: Glucose Point of Care 186 mg/dl (65-105)
[2021-02-04 20:40] VITALS: BP 143/54; PULSE 89; RESP 18; TEMP 36.6; O2SAT 99
[2021-02-04] MEDS: SODIUM CHLORIDE NASAL GEL 14.1 GM 1 APPLIC NASAL (21:15)
[2021-02-04 22:20] LABS: Glucose Point of Care 203 mg/dl (65-105)
[2021-02-05] VITALS (22 sets, daily range): BP systolic 124–150; BP diastolic 46–66; PULSE 77–95; RESP 16–20; TEMP 35.7–37; O2SAT 94–99
[2021-02-05 04:28] LABS: Hepatitis B Core Ab Total Nonreactive (Nonreactive)
[2021-02-05] MEDS: CENTRAL LINE FLUSH 10 ML IV PUSH ×3 (05:05→22:19)
[2021-02-05 05:52] LABS: Hematocrit 31.6 % (37.0-47.0); Hemoglobin 10.4 g/dL (12.0-15.0); Mean Corpuscular HGB Conc 32.9 g/dl (32-36); Mean Corpuscular Hemoglobin 30.7 pg (26-34); Mean Corpuscular Volume 93.2 fl (80-100); Mean Platelet Volume 11.7 fl (7.4-10.4); Platelet Count Result 121 k/mm3 (150-375); Red Blood Count 3.39 M/mm3 (4.2-5.4); Red Cell Distribution Width 14.1 % (11.5-14.5); White Blood Count 18.2 K/mm3 (4.5-10.0)
[2021-02-05 06:01] LABS: Albumin Level 2.5 g/dL (3.5-5.1); Anion Gap 8 mmol/L (8-16); Blood Urea Nitrogen 93 mg/dL (7-17); Calcium 7.9 mg/dL (8.4-10.2); Carbon Dioxide 23 mmol/L (22-30); Chloride 105 mmol/L (98-107); Estimated CRCL calculation 16 ml/min; Estimated Glomerular Filt Rate 11; Glucose 215 mg/dL (65-110); Phosphorus 6.8 mg/dL (2.5-4.5); Potassium 4.7 mmol/L (3.4-5.0); Sodium 136 mmol/L (137-145)
[2021-02-05 07:56] LABS: Glucose Point of Care 193 mg/dl (65-105)
[2021-02-05] MEDS: PANTOPRAZOLE SODIUM IV 40 MG VIAL IV PUSH (08:18)
[2021-02-05] MEDS: INSULIN GLARGINE (*BKC) 100 UNITS/ML 20 UNITS SUB-Q ×2 (08:18→22:22)
--- NOTE | 2021-02-05 09:09 | PC.NURSE ---
Patient to dialysis via Bed, no oxygen, IV saline locked.
--- NOTE | 2021-02-05 10:03 | PCPTNOTE ---
Attempted to see pt for PT session but pt is currently out of the room for dialysis. Will check back later as schedule allows and pt is available.
--- NOTE | 2021-02-05 11:08 | PCOTNOTE ---
Attempted to see pt, pt. not in room at this time.
--- NOTE | 2021-02-05 11:43 | PCNFU ---
Nutrition Follow-Up Complete: Inadequate Oral intake as related to mechanical ventilation as evidenced by Tube feedings. Goal: Meet estimated nutritional needs Patient is progressing towards goal. We will continue current goal. Pt current nutrition is Pureed Level 4/DBCC Last recorded weight is 114.5 kg, down from 119.1 kg on admit. Bowel Motility:+BM reported 02/02. Labs Reviewed:BUN 93, Glu 215,Cr 4.10, Hct 31.6, Hgb 10.34 Meds Noted:Lantus, Protonix, Novolog. Skin:WNL Additional Notes: Nutrition follow up. Patient in dialysis today. Oral Intake has been good, 70-90% of most meals. 02/02-bedside swallow recommending pureed, Level 4 diet. Monitoring: Will monitor every 5 days.
--- NOTE | 2021-02-05 13:09 | PCPTNOTE ---
Attempted to see pt for PT session this afternoon. Pt is still out of the room for dialysis. Will check back later as schedule allows and pt is available.
--- NOTE | 2021-02-05 13:19 | PM.IMPN ---
Progress Note: A&P Assessment and Plan (1) Septic shock: Code(s): A41.9 - Sepsis, unspecified organism; R65.21 - Severe sepsis with septic shock Status: Acute Assessment and Plan: RESOLVED: Patient has been off all pressors for greater than 48 hours Severe sepsis secondary to UTI, kidney stone, instrumentation -01/28/2021: Blood cultures growing E coli 2 of 2 bottles pansensitive -01/28/2021: Urine cultures growing E coli -continue imipenem -02/01/2021: Preliminary results - No growth x2 -OFF all pressors -LFTs improving -patient had dialysis 02/04/21 11:28 02/03/21 patient is 65-year-old female was admitted with urosepsis septic shock resulting in respiratory failure and was intubated, patient was just extubated on 02/02 patient remains confused unable to provide detailed review of symptom patient blood and urine culture grew E coli pansensitive being treated for imipenem, and repeat blood culture on 02/01 still no growth, patient had elevated tropes seen by Cardiology suspect type 2 monitor infarction secondary to sepsis and patient end-stage renal disease, is on 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, patient will be transferred out of ICU today, will continue to monitor patient. 02/04/2021 Interval History: patient with urosepsis and septic shock was extubated on02/02 patient out out of ICU on medical floor states feels exhausted working with a physical therapy, urine and blood culture is growing E coli sensitive to imipenem will continue, repeat blood culture still no growth. will continue PT OT patient will benefit going to acute rehab, son is present in the room gave updates and answered all his questions. patient with end-stage renal disease on 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 seen by hand upper and bottom lacer will have a scheduled dialysis. 02/05/2021 Interval History: patient with urosepsis and septic shock was extubated on02/02 patient out out of ICU on medical floor, today patient seen in dialysis and feeling much better at her breakfast, and feels more energetic, patient urine and blood culture growing E coli patient being treated with imipenem 10/31, repeat blood culture no growth so far, will continue, will continue antibiotic total of ten-day, will continue PT OT patient will benefit going to acute rehab (2) Urinary tract infection: Qualifiers: Hematuria presence: without hematuria Urinary tract infection type: site unspecified Qualified Code(s): N39.0 - Urinary tract infection, site not specified Code(s): N39.0 - Urinary tract infection, site not specified Status: Acute Assessment and Plan: See above (3) PEREZ (acute kidney injury): Code(s): N17.9 - Acute kidney failure, unspecified Status: Acute Assessment and Plan: Likely secondary to sepsis and obstruction leading to hydronephrosis. Patient also on diuretics and Tyrell inhibitor which are on hold CT reviewed. -status post left ureteral stent placed by Urology on 01/28/2021 Continue maintenance IV fluids with bicarbonate -obtain urine lytes Monitor urine output creatinine electrolytes -obtained renal ultrasound this morning, 01/30: 1. Left kidney poorly visualized. Hydronephrosis cannot be confirmed or excluded. 2. 7 mm nonobstructing right kidney stone. -discussed with Urology, will order CT scan of the abdomen and pelvis -CT scan of the abdomen pelvis 01/30/2021: Left internal ureteral stent in expected position with 4 mm stone adjacent to the proximal stent and 4 mm stone in the urinary bladder.2. Nonobstructing right nephrolithiasis. -dialysis catheter was placed on 01/31/2021 and started on HD on the same day -patient was dialyzed on 01/31, 02/01, 02/02 -discussed with Nephrology, (4) Calculus of left kidney: Code(s): N20.0 - Calculus of kidney Status: Acute Assessment and Plan: CT MPRESSION: 1. Bilateral nephrolithiasis with obstructing 5-6 mm proximal left ureteral stone with mild left hydroureteronephrosis. Status post cystoscopy, l
[2021-02-05 13:32] LABS: Glucose Point of Care 143 mg/dl (65-105)
--- NOTE | 2021-02-05 15:30 | P.PNNP_ITS ---
Progress Note: A&P Assessment and Plan (1) PEREZ (acute kidney injury): Code(s): N17.9 - Acute kidney failure, unspecified Status: Acute Assessment and Plan: * multifactorial ATN: - sepsis/infection (UTI) - obstruction/hydronephrosis - concurrent ALICE-I and diuretic use prior to admission * bilateral nephrolithiasis with obstructing 5-6 mm proximal left ureteral stone with mild left hydroureteronephrosis by admission CT scan * status post cystoscopy, left retrograde pyelogram and left ureteral stent placement on 01/28/2021 * s/p IVF resuscitation * due to rising BUN and creatinine in association with declining urine output, initiated of PERFUME COMPOUNDER/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 * HD today more so for clearance of uremic toxins - no fluid removal (2) Septic shock: Code(s): A41.9 - Sepsis, unspecified organism; R65.21 - Severe sepsis with septic shock Status: Acute Assessment and Plan: * resolved * due to combination of UTI, nephrolithiasis, and instrumentation * appears to be urosepsis: * blood culture with E.coli (2 of 2 bottles) * urine culture with E.coli * repeat cultures negative * off pressor therapy at this time * continue IV antibiotics (3) Urinary tract infection: Qualifiers: Hematuria presence: without hematuria Urinary tract infection type: site unspecified Qualified Code(s): N39.0 - Urinary tract infection, site not specified Code(s): N39.0 - Urinary tract infection, site not specified Status: Acute Assessment and Plan: * see #2 * urine culture with E. coli (4) Hyperkalemia: Code(s): E87.5 - Hyperkalemia Status: Acute Assessment and Plan: * resolved * likely due to PEREZ and acidosis along with hyperglycemia * follow repeat levels (5) Elevated troponin: Code(s): R77.8 - Other specified abnormalities of plasma proteins Status: Acute Assessment and Plan: * Cardiology recommendations noted * continue supportive care (6) Diabetes: Code(s): E11.9 - Type 2 diabetes mellitus without complications Status: Acute Assessment and Plan: * follow accuchecks * glycemic control Will continue to follow. Subjective Date/time seen: 02/05/21 15:30 Tolerated dialysis treatment earlier today without any issues or problems; noted to be making more urine in the last 24 - 48 hours; eating and drinking fairly well; no apparent issues or concerns voiced at this time; no events overnight or earlier this AM. Exam Narrative: General: WD/WN female in NAD Heart: normal S1 and S2; no rub Lungs: clear to auscultation Abdomen: soft, nontender, nondistended, positive bowel sounds Extremities: trace edema noted Skin: no nodules Objective Data Vital Signs Vital Signs: Vital Signs Temp Pulse Resp BP Pulse Ox 02/05/21 12:53 36.6 C 86 16 139/56 L 02/05/21 12:42 87 140/59 L 02/05/21 12:30 87 140/59 L 02/05/21 12:15 86 143/60 H 02/05/21 12:00 87 143/50 H 02/05/21 11:45 88 150/61 H 02/05/21 11:30 87 138/64 02/05/21 11:15 86 134/59 L 02/05/21 11:00 86 135/57 L 02/05/21 10:45 87 134/57 L 02/05/21 10:30 90 138/50 L 02/05/21 10:15 89 134/52 L 02/05/21 10:00 89 126/50 L 02/05/21 09:45
--- NOTE | 2021-02-05 15:30 | PM.PNNEP ---
Progress Note: A&P Assessment and Plan (1) PEREZ (acute kidney injury): Code(s): N17.9 - Acute kidney failure, unspecified Status: Acute Assessment and Plan: multifactorial ATN: - sepsis/infection (UTI) - obstruction/hydronephrosis - concurrent ALICE-I and diuretic use prior to admission bilateral nephrolithiasis with obstructing 5-6 mm proximal left ureteral stone with mild left hydroureteronephrosis by admission CT scan status post cystoscopy, left retrograde pyelogram and left ureteral stent placement on 01/28/2021 s/p IVF resuscitation due to rising BUN and creatinine in association with declining urine output, initiated of VECTOR CONTROL ASSISTANT/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 HD today more so for clearance of uremic toxins - no fluid removal (2) Septic shock: Code(s): A41.9 - Sepsis, unspecified organism; R65.21 - Severe sepsis with septic shock Status: Acute Assessment and Plan: resolved due to combination of UTI, nephrolithiasis, and instrumentation appears to be urosepsis: blood culture with E.coli (2 of 2 bottles) urine culture with E.coli repeat cultures negative off pressor therapy at this time continue IV antibiotics (3) Urinary tract infection: Qualifiers: Hematuria presence: without hematuria Urinary tract infection type: site unspecified Qualified Code(s): N39.0 - Urinary tract infection, site not specified Code(s): N39.0 - Urinary tract infection, site not specified Status: Acute Assessment and Plan: see #2 urine culture with E. coli (4) Hyperkalemia: Code(s): E87.5 - Hyperkalemia Status: Acute Assessment and Plan: resolved likely due to PEREZ and acidosis along with hyperglycemia follow repeat levels (5) Elevated troponin: Code(s): R77.8 - Other specified abnormalities of plasma proteins Status: Acute Assessment and Plan: Cardiology recommendations noted continue supportive care (6) Diabetes: Code(s): E11.9 - Type 2 diabetes mellitus without complications Status: Acute Assessment and Plan: follow accuchecks glycemic control Will continue to follow. Subjective Date/time seen: 02/05/21 15:30 Tolerated dialysis treatment earlier today without any issues or problems; noted to be making more urine in the last 24 - 48 hours; eating and drinking fairly well; no apparent issues or concerns voiced at this time; no events overnight or earlier this AM. Exam Narrative: General: WD/WN female in NAD Heart: normal S1 and S2; no rub Lungs: clear to auscultation Abdomen: soft, nontender, nondistended, positive bowel sounds Extremities: trace edema noted Skin: no nodules Objective Data Vital Signs Vital Signs: Vital Signs Temp Pulse Resp BP Pulse Ox 02/05/21 12:53 36.6 C 86 16 139/56 L 02/05/21 12:42 87 140/59 L 02/05/21 12:30 87 140/59 L 02/05/21 12:15 86 143/60 H 02/05/21 12:00 87 143/50 H 02/05/21 11:45 88 150/61 H 02/05/21 11:30 87 138/64 02/05/21 11:15 86 134/59 L 02/05/21 11:00 86 135/57 L 02/05/21 10:45 87 134/57 L 02/05/21 10:30 90 138/50 L 02/05/21 10:15 89 134/52 L 02/05/21 10:00 89 126/50 L 02/05/21 09:45 89 124/50 L 02/05/21 09:30 88 140/59 L 02/05/21 09:27 88 134/58 L 02/05/21 09:07 36.5 C 88 16 137/56 L 02/05/21 08:30 96 02/05/21 08:15 98 02/05/21 06:00 36.5 C 95 16 141/55 H 99 02/04/21 20:40 36.6 C 89 18 143/54 H 99 Intake/Output Intake/Output: Intake & Output 02/02/21 02/03/21 02/04/21 02/05/21 23:59 23:59 23:59 23:59 Intake Total 1017 420 776 640 Output Total 0053 457 6913 1200 [facility] -783 -20 -499 -560 Meds/Results Medications: Active Medications Generic Name Dose Route Start Last Admin Trade Name Freq PRN Reason Stop Dose Admin Acetaminophen 650 mg 02/04/21 12
[2021-02-05 16:24] LABS: Glucose Point of Care 176 mg/dl (65-105)
[2021-02-05 22:32] LABS: Glucose Point of Care 190 mg/dl (65-105)
[2021-02-06 03:58] LABS: Hematocrit 29.1 % (37.0-47.0); Hemoglobin 9.5 g/dL (12.0-15.0); Mean Corpuscular HGB Conc 32.6 g/dl (32-36); Mean Corpuscular Hemoglobin 30.5 pg (26-34); Mean Corpuscular Volume 93.6 fl (80-100); Mean Platelet Volume 11.4 fl (7.4-10.4); Platelet Count Result 133 k/mm3 (150-375); Red Blood Count 3.11 M/mm3 (4.2-5.4); Red Cell Distribution Width 14.6 % (11.5-14.5); White Blood Count 14.3 K/mm3 (4.5-10.0)
[2021-02-06 04:17] LABS: Albumin Level 2.5 g/dL (3.5-5.1); Anion Gap 4 mmol/L (8-16); Blood Urea Nitrogen 51 mg/dL (7-17); Calcium 7.7 mg/dL (8.4-10.2); Carbon Dioxide 28 mmol/L (22-30); Chloride 102 mmol/L (98-107); Estimated CRCL calculation 25 ml/min; Estimated Glomerular Filt Rate 18; Glucose 167 mg/dL (65-110); Phosphorus 4.2 mg/dL (2.5-4.5); Potassium 3.9 mmol/L (3.4-5.0); Sodium 134 mmol/L (137-145)
[2021-02-06] MEDS: SIMETHICONE 80 MG TAB.CHEW PO (04:40)
[2021-02-06 06:00] VITALS: BP 143/50; PULSE 81; RESP 20; TEMP 36.2; O2SAT 95
[2021-02-06 06:09] LABS: Glucose Point of Care 154 mg/dl (65-105)
[2021-02-06] MEDS: CENTRAL LINE FLUSH 10 ML IV PUSH ×3 (06:10→21:42)
[2021-02-06 07:47] LABS: Glucose Point of Care 146 mg/dl (65-105)
[2021-02-06] MEDS: INSULIN GLARGINE (*BKC) 100 UNITS/ML 20 UNITS SUB-Q ×2 (09:05→21:42)
[2021-02-06] MEDS: PANTOPRAZOLE SODIUM IV 40 MG VIAL IV PUSH (09:07)
[2021-02-06] MEDS: NEOMYCIN/POLYMYXIN/BACITRACIN OINTMENT PACKET 1 PACKET (09:09)
[2021-02-06 11:47] LABS: Glucose Point of Care 262 mg/dl (65-105)
[2021-02-06] MEDS: INSULIN ASPART (*BKC) 100 UNITS/ML SUB-Q ×2 (11:56→17:27)
[2021-02-06 14:00] VITALS: BP 109/46; PULSE 92; RESP 18; TEMP 36; O2SAT 97
--- NOTE | 2021-02-06 14:38 | P.PNNP_ITS ---
Progress Note: A&P Assessment and Plan (1) PEREZ (acute kidney injury): Code(s): N17.9 - Acute kidney failure, unspecified Status: Acute Assessment and Plan: * multifactorial ATN: - sepsis/infection (UTI) - obstruction/hydronephrosis - concurrent ALICE-I and diuretic use prior to admission * bilateral nephrolithiasis with obstructing 5-6 mm proximal left ureteral stone with mild left hydroureteronephrosis by admission CT scan * status post cystoscopy, left retrograde pyelogram and left ureteral stent placement on 01/28/2021 * s/p IVF resuscitation * due to rising BUN and creatinine in association with declining urine output, was initiated of WARDSPERSON/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 * hold dialysis for now * follow trend of repeat labs and UOP... (2) Septic shock: Code(s): A41.9 - Sepsis, unspecified organism; R65.21 - Severe sepsis with septic shock Status: Acute Assessment and Plan: * resolved * due to combination of UTI, nephrolithiasis, and instrumentation * appears to be urosepsis: * blood culture with E.coli (2 of 2 bottles) * urine culture with E.coli * repeat cultures negative * off pressor therapy at this time * continue IV antibiotics (3) Urinary tract infection: Qualifiers: Hematuria presence: without hematuria Urinary tract infection type: site unspecified Qualified Code(s): N39.0 - Urinary tract infection, site not specified Code(s): N39.0 - Urinary tract infection, site not specified Status: Acute Assessment and Plan: * see #2 * urine culture with E. coli (4) Hyperkalemia: Code(s): E87.5 - Hyperkalemia Status: Acute Assessment and Plan: * resolved * likely due to PEREZ and acidosis along with hyperglycemia * follow repeat levels (5) Elevated troponin: Code(s): R77.8 - Other specified abnormalities of plasma proteins Status: Acute Assessment and Plan: * Cardiology recommendations noted * continue supportive care (6) Diabetes: Code(s): E11.9 - Type 2 diabetes mellitus without complications Status: Acute Assessment and Plan: * follow accuchecks * glycemic control Will continue to follow. Subjective Date/time seen: 02/06/21 14:38 Tolerated dialysis yesterday without any issues or problems; continues to make good urine output in general in the last 24 - 48 hours; still with some fatigue and occasional confusion but this seems to be getting better each day; no issues or problems overnight or earlier this AM. Exam Narrative: General: WD/WN female in NAD Heart: normal S1 and S2; no rub Lungs: clear to auscultation Abdomen: soft, nontender, nondistended, positive bowel sounds Extremities: trace edema noted Skin: warm and dry Objective Data Vital Signs Vital Signs: Vital Signs Temp Pulse Resp BP Pulse Ox 02/06/21 14:00 36.0 C L 92 18 109/46 L 97 02/06/21 06:00 36.2 C L 81 20 143/50 H 95 02/05/21 22:00 36.3 C L 77 20 150/56 H 94 Intake/Output Intake/Output: Intake & Output 02/03/21 02/04/21 02/05/21 02/06/21 23:59 23:59 23:59 23:59 Intake Total 546 871 5774 1690 Output Total 440 8915 1475 1650 Balance -20 -499 -375 40 Meds/Results Medications: Active Medications
--- NOTE | 2021-02-06 14:38 | PM.PNNEP ---
Progress Note: A&P Assessment and Plan (1) PEREZ (acute kidney injury): Code(s): N17.9 - Acute kidney failure, unspecified Status: Acute Assessment and Plan: multifactorial ATN: - sepsis/infection (UTI) - obstruction/hydronephrosis - concurrent ALICE-I and diuretic use prior to admission bilateral nephrolithiasis with obstructing 5-6 mm proximal left ureteral stone with mild left hydroureteronephrosis by admission CT scan status post cystoscopy, left retrograde pyelogram and left ureteral stent placement on 01/28/2021 s/p IVF resuscitation due to rising BUN and creatinine in association with declining urine output, was initiated of EXTERNAL RELATIONS DIRECTOR/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 hold dialysis for now follow trend of repeat labs and UOP... (2) Septic shock: Code(s): A41.9 - Sepsis, unspecified organism; R65.21 - Severe sepsis with septic shock Status: Acute Assessment and Plan: resolved due to combination of UTI, nephrolithiasis, and instrumentation appears to be urosepsis: blood culture with E.coli (2 of 2 bottles) urine culture with E.coli repeat cultures negative off pressor therapy at this time continue IV antibiotics (3) Urinary tract infection: Qualifiers: Hematuria presence: without hematuria Urinary tract infection type: site unspecified Qualified Code(s): N39.0 - Urinary tract infection, site not specified Code(s): N39.0 - Urinary tract infection, site not specified Status: Acute Assessment and Plan: see #2 urine culture with E. coli (4) Hyperkalemia: Code(s): E87.5 - Hyperkalemia Status: Acute Assessment and Plan: resolved likely due to PEREZ and acidosis along with hyperglycemia follow repeat levels (5) Elevated troponin: Code(s): R77.8 - Other specified abnormalities of plasma proteins Status: Acute Assessment and Plan: Cardiology recommendations noted continue supportive care (6) Diabetes: Code(s): E11.9 - Type 2 diabetes mellitus without complications Status: Acute Assessment and Plan: follow accuchecks glycemic control Will continue to follow. Subjective Date/time seen: 02/06/21 14:38 Tolerated dialysis yesterday without any issues or problems; continues to make good urine output in general in the last 24 - 48 hours; still with some fatigue and occasional confusion but this seems to be getting better each day; no issues or problems overnight or earlier this AM. Exam Narrative: General: WD/WN female in NAD Heart: normal S1 and S2; no rub Lungs: clear to auscultation Abdomen: soft, nontender, nondistended, positive bowel sounds Extremities: trace edema noted Skin: warm and dry Objective Data Vital Signs Vital Signs: Vital Signs Temp Pulse Resp BP Pulse Ox 02/06/21 14:00 36.0 C L 92 18 109/46 L 97 02/06/21 06:00 36.2 C L 81 20 143/50 H 95 02/05/21 22:00 36.3 C L 77 20 150/56 H 94 Intake/Output Intake/Output: Intake & Output 02/03/21 02/04/21 02/05/21 02/06/21 23:59 23:59 23:59 23:59 Intake Total 340 859 4558 1690 Output Total 440 1275 1475 1650 [facility] -20 -499 -375 40 Meds/Results Medications: Active Medications Generic Name Dose Route Start Last Admin Trade Name Freq PRN Reason Stop Dose Admin Acetaminophen 650 mg 02/04/21 12:04 Acetaminophen 325 Mg Tablet PO Q6H PRN Mild Pain (1-3) or Fever Dextrose 12.5 gm 01/28/21 17:01 Dextrose 50% 25 Gm/50 Ml Syringe IV PUSH PRN PRN Hypoglycemia Protocol Glucagon 1 mg 01/28/21 17:01 Glucagon For Inj 1 Mg Vial IM PRN PRN Hypoglycemia Protocol Glucose 15 gm 01/28/21 17:01 Glucose Oral Gel 15 Gm Of Glucse In 37.5 Gm Tube PO PRN PRN Hypoglycemia Protocol Heparin Sodium (Porcine) 5,000 units 01/28/21 21:00 01/29/21 20:00 Heparin Sodium 5,000 Units/Ml
--- NOTE | 2021-02-06 15:03 | PM.IMPN ---
Progress Note: A&P Assessment and Plan (1) Septic shock: Code(s): A41.9 - Sepsis, unspecified organism; R65.21 - Severe sepsis with septic shock Status: Acute Assessment and Plan: RESOLVED: Patient has been off all pressors for greater than 48 hours Severe sepsis secondary to UTI, kidney stone, instrumentation -01/28/2021: Blood cultures growing E coli 2 of 2 bottles pansensitive -01/28/2021: Urine cultures growing E coli -02/01/2021: Preliminary results - No growth x2 -OFF all pressors -LFTs improving -patient had dialysis 02/04/21 11:28 02/03/21 patient is 65-year-old female was admitted with urosepsis septic shock resulting in respiratory failure and was intubated, patient was just extubated on 02/02 patient remains confused unable to provide detailed review of symptom patient blood and urine culture grew E coli pansensitive being treated for imipenem, and repeat blood culture on 02/01 still no growth, patient had elevated tropes seen by Cardiology suspect type 2 monitor infarction secondary to sepsis and patient end-stage renal disease, is on 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, patient will be transferred out of ICU today, will continue to monitor patient. 02/04/2021 Interval History: patient with urosepsis and septic shock was extubated on02/02 patient out out of ICU on medical floor states feels exhausted working with a physical therapy, urine and blood culture is growing E coli sensitive to imipenem will continue, repeat blood culture still no growth. will continue PT OT patient will benefit going to acute rehab, son is present in the room gave updates and answered all his questions. patient with end-stage renal disease on 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 seen by regulatory agency director will have a scheduled dialysis. 02/05/2021 Interval History: patient with urosepsis and septic shock was extubated on02/02 patient out out of ICU on medical floor, today patient seen in dialysis and feeling much better at her breakfast, and feels more energetic, patient urine and blood culture growing E coli patient being treated with imipenem 10/31, repeat blood culture no growth so far, will continue, will continue antibiotic total of ten-day, will continue PT OT patient will benefit going to acute rehab 02/06/2021 patient with urosepsis and septic shock extubated 02/02/21 out of the ICU acute renal failure getting dialyzed intermittently. Last dialysis on 02/04/2021. Bacteremia with E coli on imipenem 12/01 blood culture repeat on 02/01 21- so for. PT OT suggesting rehab placement await renal recovery and dialysis needs DVT prophylaxis with heparin subQ on imipenem for antibiotics insulin therapy with Lantus 20 units b.i.d. blood sugar controlled (2) Urinary tract infection: Qualifiers: Hematuria presence: without hematuria Urinary tract infection type: site unspecified Qualified Code(s): N39.0 - Urinary tract infection, site not specified Code(s): N39.0 - Urinary tract infection, site not specified Status: Acute Assessment and Plan: See above (3) PEREZ (acute kidney injury): Code(s): N17.9 - Acute kidney failure, unspecified Status: Acute Assessment and Plan: Likely secondary to sepsis and obstruction leading to hydronephrosis. Patient also on diuretics and Tyrell inhibitor which are on hold CT reviewed. -status post left ureteral stent placed by Urology on 01/28/2021 Continue maintenance IV fluids with bicarbonate -obtain urine lytes Monitor urine output creatinine electrolytes -obtained renal ultrasound this morning, 01/30: 1. Left kidney poorly visualized. Hydronephrosis cannot be confirmed or excluded. 2. 7 mm nonobstructing right kidney stone. -discussed with Urology, will order CT scan of the abdomen and pelvis -CT scan of the abdomen pelvis 01/30/2021: Left internal ureteral stent in expected position with 4 mm stone adjacent to the proximal stent and 4 mm stone in the urinary bladder.2. Nonobstructing right nephrolithiasis. -
[2021-02-06 16:40] LABS: Glucose Point of Care 276 mg/dl (65-105)
[2021-02-06 20:45] VITALS: BP 154/63; PULSE 100; RESP 16; TEMP 36.3; O2SAT 98
[2021-02-06] MEDS: SODIUM CHLORIDE NASAL GEL 14.1 GM 1 APPLIC NASAL (21:35)
[2021-02-06 22:06] LABS: Glucose Point of Care 284 mg/dl (65-105)
[2021-02-07] MEDS: CENTRAL LINE FLUSH 10 ML IV PUSH ×3 (05:17→21:30)
[2021-02-07 05:21] VITALS: BP 156/50; PULSE 83; RESP 18; TEMP 36.2; O2SAT 96
[2021-02-07 05:39] LABS: Hematocrit 29.6 % (37.0-47.0); Hemoglobin 9.6 g/dL (12.0-15.0); Mean Corpuscular HGB Conc 32.4 g/dl (32-36); Mean Corpuscular Hemoglobin 30.2 pg (26-34); Mean Corpuscular Volume 93.1 fl (80-100); Mean Platelet Volume 10.9 fl (7.4-10.4); Platelet Count Result 182 k/mm3 (150-375); Red Blood Count 3.18 M/mm3 (4.2-5.4); Red Cell Distribution Width 14.4 % (11.5-14.5); White Blood Count 12.9 K/mm3 (4.5-10.0)
[2021-02-07 05:54] LABS: Alanine Aminotransferase 18 U/L (4-35); Albumin Level 2.7 g/dL (3.5-5.1); Alkaline Phosphatase 277 U/L (38-126); Anion Gap 6 mmol/L (8-16); Aspartate Amino Transferase 17 U/L (14-36); Bilirubin,Total 0.7 mg/dL (0.2-1.3); Blood Urea Nitrogen 52 mg/dL (7-17); Calcium 7.7 mg/dL (8.4-10.2); Carbon Dioxide 27 mmol/L (22-30); Chloride 102 mmol/L (98-107); Estimated CRCL calculation 26 ml/min; Estimated Glomerular Filt Rate 19; Glucose 180 mg/dL (65-110); Phosphorus 5.2 mg/dL (2.5-4.5); Potassium 3.9 mmol/L (3.4-5.0); Sodium 135 mmol/L (137-145)
[2021-02-07 07:48] LABS: Glucose Point of Care 140 mg/dl (65-105)
[2021-02-07] MEDS: PANTOPRAZOLE SODIUM IV 40 MG VIAL IV PUSH (08:02)
[2021-02-07] MEDS: INSULIN GLARGINE (*BKC) 100 UNITS/ML 20 UNITS SUB-Q ×2 (08:05→21:36)
[2021-02-07 11:56] LABS: Glucose Point of Care 193 mg/dl (65-105)
--- NOTE | 2021-02-07 13:14 | PM.IMPN ---
Progress Note: A&P Assessment and Plan (1) Septic shock: Code(s): A41.9 - Sepsis, unspecified organism; R65.21 - Severe sepsis with septic shock Status: Acute Assessment and Plan: RESOLVED: Patient has been off all pressors for greater than 48 hours Severe sepsis secondary to UTI, kidney stone, instrumentation -01/28/2021: Blood cultures growing E coli 2 of 2 bottles pansensitive -01/28/2021: Urine cultures growing E coli -02/01/2021: Preliminary results - No growth x2 -OFF all pressors -LFTs improving -patient had dialysis 02/04/21 11:28 02/03/21 patient is 65-year-old female was admitted with urosepsis septic shock resulting in respiratory failure and was intubated, patient was just extubated on 02/02 patient remains confused unable to provide detailed review of symptom patient blood and urine culture grew E coli pansensitive being treated for imipenem, and repeat blood culture on 02/01 still no growth, patient had elevated tropes seen by Cardiology suspect type 2 monitor infarction secondary to sepsis and patient end-stage renal disease, is on 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, patient will be transferred out of ICU today, will continue to monitor patient. 02/04/2021 Interval History: patient with urosepsis and septic shock was extubated on02/02 patient out out of ICU on medical floor states feels exhausted working with a physical therapy, urine and blood culture is growing E coli sensitive to imipenem will continue, repeat blood culture still no growth. will continue PT OT patient will benefit going to acute rehab, son is present in the room gave updates and answered all his questions. patient with end-stage renal disease on 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 seen by customs brokerage agent will have a scheduled dialysis. 02/05/2021 Interval History: patient with urosepsis and septic shock was extubated on02/02 patient out out of ICU on medical floor, today patient seen in dialysis and feeling much better at her breakfast, and feels more energetic, patient urine and blood culture growing E coli patient being treated with imipenem 10/31, repeat blood culture no growth so far, will continue, will continue antibiotic total of ten-day, will continue PT OT patient will benefit going to acute rehab 02/06/2021 patient with urosepsis and septic shock extubated 02/02/21 out of the ICU acute renal failure getting dialyzed intermittently. Last dialysis on 02/04/2021. Bacteremia with E coli on imipenem 12/01 blood culture repeat on 02/01 21- so for. PT OT suggesting rehab placement await renal recovery and dialysis needs DVT prophylaxis with heparin subQ on imipenem for antibiotics insulin therapy with Lantus 20 units b.i.d. blood sugar controlled 02/07/2021 patient with urosepsis and septic shock extubated 02/02/2021 100 ICU acute renal failure needing dialysis intermittently last dialysis was on 02/04/2021. Urine output is picking up. Creatinine slowly improving she still has a Alex catheter in place for in case he needs dialysis is hopeful that she might not need further dialysis. Continue to monitor urine output and renal function. She is on imipenem 10/ days course. Bacteremia with E coli 01/28/2021 repeat blood culture 02/02/2020 has been negative. Diabetes control SSI and Lantus as ordered blood sugar trend reviewed (2) Urinary tract infection: Qualifiers: Hematuria presence: without hematuria Urinary tract infection type: site unspecified Qualified Code(s): N39.0 - Urinary tract infection, site not specified Code(s): N39.0 - Urinary tract infection, site not specified Status: Acute Assessment and Plan: See above (3) PEREZ (acute kidney injury): Code(s): N17.9 - Acute kidney failure, unspecified Status: Acute Assessment and Plan: Likely secondary to sepsis and obstruction leading to hydronephrosis. Patient also on diuretics and Tyrell inhibitor which are on hold CT reviewed. -status post left ureteral stent placed by Ur
[2021-02-07 14:15] VITALS: BP 136/85; PULSE 103; RESP 12; TEMP 36.4; O2SAT 98
--- NOTE | 2021-02-07 15:39 | PM.PNNEP ---
Progress Note: A&P Assessment and Plan (1) PEREZ (acute kidney injury): Code(s): N17.9 - Acute kidney failure, unspecified Status: Acute Assessment and Plan: multifactorial ATN: - sepsis/infection (UTI) - obstruction/hydronephrosis - concurrent ALICE-I and diuretic use prior to admission bilateral nephrolithiasis with obstructing 5-6 mm proximal left ureteral stone with mild left hydroureteronephrosis by admission CT scan status post cystoscopy, left retrograde pyelogram and left ureteral stent placement on 01/28/2021 s/p IVF resuscitation due to rising BUN and creatinine in association with declining urine output, was initiated of FARM TECHNICIAN/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 continue to hold dialysis for now follow trend of repeat labs and UOP... (2) Septic shock: Code(s): A41.9 - Sepsis, unspecified organism; R65.21 - Severe sepsis with septic shock Status: Acute Assessment and Plan: resolved due to combination of UTI, nephrolithiasis, and instrumentation appears to be urosepsis: blood culture with E.coli (2 of 2 bottles) urine culture with E.coli repeat cultures negative off pressor therapy at this time continue antibiotics (3) Urinary tract infection: Qualifiers: Hematuria presence: without hematuria Urinary tract infection type: site unspecified Qualified Code(s): N39.0 - Urinary tract infection, site not specified Code(s): N39.0 - Urinary tract infection, site not specified Status: Acute Assessment and Plan: see #2 urine culture with E. coli (4) Hyperkalemia: Code(s): E87.5 - Hyperkalemia Status: Acute Assessment and Plan: resolved likely due to PEREZ and acidosis along with hyperglycemia follow repeat levels (5) Elevated troponin: Code(s): R77.8 - Other specified abnormalities of plasma proteins Status: Acute Assessment and Plan: Cardiology recommendations noted continue supportive care (6) Diabetes: Code(s): E11.9 - Type 2 diabetes mellitus without complications Status: Acute Assessment and Plan: follow accuchecks glycemic control Will continue to follow. Subjective Date/time seen: 02/07/21 15:39 Continues to make slow and steady progress; renal function relatively stable and continues to make good urine output as well with stability in electrolytes as well; no issues/events overnight or earlier this AM; working with therapy as tolerated; no acute distress noted. Exam Narrative: General: WD/WN female in NAD Heart: normal S1 and S2; no rub Lungs: clear to auscultation Abdomen: soft, nontender, nondistended, positive bowel sounds Extremities: trace edema noted Skin: warm and intact Objective Data Vital Signs Vital Signs: Vital Signs Temp Pulse Resp BP Pulse Ox 02/07/21 05:21 36.2 C L 83 18 156/50 H 96 02/06/21 20:45 36.3 C L 100 16 154/63 H 98 Intake/Output Intake/Output: Intake & Output 02/04/21 02/05/21 02/06/21 02/07/21 23:59 23:59 23:59 23:59 Intake Total 776 1100 1790 200 Output Total 1275 1475 1650 1000 Balance -499 -375 140 -800 Meds/Results Medications: Active Medications Generic Name Dose Route Start Last Admin Trade Name Freq PRN Reason Stop Dose Admin Acetaminophen 650 mg 02/04/21 12:04 Acetaminophen 325 Mg Tablet PO Q6H PRN Mild Pain (1-3) or Fever Dextrose 12.5 gm 01/28/21 17:01 Dextrose 50% 25 Gm/50 Ml Syringe IV PUSH PRN PRN Hypoglycemia Protocol Glucagon 1 mg 01/28/21 17:01 Glucagon For Inj 1 Mg Vial IM PRN PRN Hypoglycemia Protocol Glucose 15 gm 01/28/21 17:01 Glucose Oral Gel 15 Gm Of Glucse In 37.5 Gm Tube PO PRN PRN Hypoglycemia Protocol Heparin Sodium (Porcine) 5,000 units 01/28/21 21:00 01/29/21 20:00 Heparin Sodium 5,000 Units/Ml Vial SUB-Q 5,000 units Q12HR MIGUEL
--- NOTE | 2021-02-07 15:39 | P.PNNP_ITS ---
Progress Note: A&P Assessment and Plan (1) PEREZ (acute kidney injury): Code(s): N17.9 - Acute kidney failure, unspecified Status: Acute Assessment and Plan: * multifactorial ATN: - sepsis/infection (UTI) - obstruction/hydronephrosis - concurrent ALICE-I and diuretic use prior to admission * bilateral nephrolithiasis with obstructing 5-6 mm proximal left ureteral stone with mild left hydroureteronephrosis by admission CT scan * status post cystoscopy, left retrograde pyelogram and left ureteral stent placement on 01/28/2021 * s/p IVF resuscitation * due to rising BUN and creatinine in association with declining urine output, was initiated of [employer]/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 * continue to hold dialysis for now * follow trend of repeat labs and UOP... (2) Septic shock: Code(s): A41.9 - Sepsis, unspecified organism; R65.21 - Severe sepsis with septic shock Status: Acute Assessment and Plan: * resolved * due to combination of UTI, nephrolithiasis, and instrumentation * appears to be urosepsis: * blood culture with E.coli (2 of 2 bottles) * urine culture with E.coli * repeat cultures negative * off pressor therapy at this time * continue antibiotics (3) Urinary tract infection: Qualifiers: Hematuria presence: without hematuria Urinary tract infection type: site unspecified Qualified Code(s): N39.0 - Urinary tract infection, site not specified Code(s): N39.0 - Urinary tract infection, site not specified Status: Acute Assessment and Plan: * see #2 * urine culture with E. coli (4) Hyperkalemia: Code(s): E87.5 - Hyperkalemia Status: Acute Assessment and Plan: * resolved * likely due to PEREZ and acidosis along with hyperglycemia * follow repeat levels (5) Elevated troponin: Code(s): R77.8 - Other specified abnormalities of plasma proteins Status: Acute Assessment and Plan: * Cardiology recommendations noted * continue supportive care (6) Diabetes: Code(s): E11.9 - Type 2 diabetes mellitus without complications Status: Acute Assessment and Plan: * follow accuchecks * glycemic control Will continue to follow. Subjective Date/time seen: 02/07/21 15:39 Continues to make slow and steady progress; renal function relatively stable and continues to make good urine output as well with stability in electrolytes as well; no issues/events overnight or earlier this AM; working with therapy as tolerated; no acute distress noted. Exam Narrative: General: WD/WN female in NAD Heart: normal S1 and S2; no rub Lungs: clear to auscultation Abdomen: soft, nontender, nondistended, positive bowel sounds Extremities: trace edema noted Skin: warm and intact Objective Data Vital Signs Vital Signs: Vital Signs Temp Pulse Resp BP Pulse Ox 02/07/21 05:21 36.2 C L 83 18 156/50 H 96 02/06/21 20:45 36.3 C L 100 16 154/63 H 98 Intake/Output Intake/Output: Intake & Output 02/04/21 02/05/21 02/06/21 02/07/21 23:59 23:59 23:59 23:59 Intake Total 776 1100 1790 200 Output Total 1275 1475 1650 1000 Balance -499 375 140 -800 Meds/Results Medications: Active Medications Generic Name Dose Route Start
[2021-02-07 17:28] LABS: Glucose Point of Care 270 mg/dl (65-105)
[2021-02-07] MEDS: INSULIN ASPART (*BKC) 100 UNITS/ML SUB-Q (17:42)
[2021-02-07 20:17] VITALS: PULSE 81; RESP 18; O2SAT 96
[2021-02-07 21:14] VITALS: BP 140/52; PULSE 93; RESP 16; TEMP 36.4; O2SAT 96
[2021-02-07 22:12] LABS: Glucose Point of Care 250 mg/dl (65-105)
[2021-02-08] MEDS: ONDANSETRON INJ 4 MG/2 ML VIAL IV PUSH (00:50)
[2021-02-08 05:36] LABS: Hematocrit 27.7 % (37.0-47.0); Hemoglobin 9.2 g/dL (12.0-15.0); Mean Corpuscular HGB Conc 33.2 g/dl (32-36); Mean Corpuscular Volume 93.3 fl (80-100); Mean Platelet Volume 10.4 fl (7.4-10.4); Platelet Count Result 212 k/mm3 (150-375); Red Blood Count 2.97 M/mm3 (4.2-5.4); Red Cell Distribution Width 14.3 % (11.5-14.5); White Blood Count 9.1 K/mm3 (4.5-10.0)
[2021-02-08 05:45] VITALS: BP 121/55; PULSE 89; RESP 16; TEMP 36.4; O2SAT 91
[2021-02-08 05:50] LABS: Albumin Level 2.6 g/dL (3.5-5.1); Anion Gap 4 mmol/L (8-16); Blood Urea Nitrogen 50 mg/dL (7-17); Calcium 7.9 mg/dL (8.4-10.2); Carbon Dioxide 28 mmol/L (22-30); Chloride 107 mmol/L (98-107); Estimated CRCL calculation 28 ml/min; Estimated Glomerular Filt Rate 21; Glucose 188 mg/dL (65-110); Phosphorus 5.4 mg/dL (2.5-4.5); Potassium 4.2 mmol/L (3.4-5.0); Sodium 139 mmol/L (137-145)
[2021-02-08] MEDS: CENTRAL LINE FLUSH 10 ML IV PUSH ×3 (06:15→21:24)
[2021-02-08 07:49] LABS: Glucose Point of Care 140 mg/dl (65-105)
[2021-02-08] MEDS: INSULIN GLARGINE (*BKC) 100 UNITS/ML 20 UNITS SUB-Q ×2 (08:08→21:23)
[2021-02-08] MEDS: PANTOPRAZOLE SODIUM IV 40 MG VIAL IV PUSH (08:09)
[2021-02-08 12:12] LABS: Glucose Point of Care 206 mg/dl (65-105)
--- NOTE | 2021-02-08 12:20 | P.PNNP_ITS ---
Progress Note: A&P Assessment and Plan (1) PEREZ (acute kidney injury): Code(s): N17.9 - Acute kidney failure, unspecified Status: Acute Assessment and Plan: * multifactorial ATN: - sepsis/infection (UTI) - obstruction/hydronephrosis - concurrent ALICE-I and diuretic use prior to admission * s/p left ureteral stent placement by Urology * IVF resuscitation * imaging studies noted to date * HD x 4 sessions -- creatinine relatively stable and noted increase in urine output -- suspect renal recovery * continue to hold dialysis treatments at this time * follow repeat labs and UOP (2) Septic shock: Code(s): A41.9 - Sepsis, unspecified organism; R65.21 - Severe sepsis with septic shock Status: Acute Assessment and Plan: * resolved * due to combination of UTI, nephrolithiasis, and instrumentation * blood and urine cultures with E.coli * repeat cultures negative * continue antibiotics (3) Urinary tract infection: Qualifiers: Hematuria presence: without hematuria Urinary tract infection type: s ite unspecified Qualified Code(s): N39.0 - Urinary tract infection, site not specified Code(s): N39.0 - Urinary tract infection, site not specified Status: Acute Assessment and Plan: * see #2 * follow-up on urine culture (4) Hyperkalemia: Code(s): E87.5 - Hyperkalemia Status: Acute Assessment and Plan: * resolved * likely due to PEREZ and acidosis along with hyperglycemia * follow repeat levels (5) Elevated troponin: Code(s): R77.8 - Other specified abnormalities of plasma proteins Status: Acute Assessment and Plan: * Cardiology recommendations noted * continue supportive care (6) Diabetes: Code(s): E11.9 - Type 2 diabetes mellitus without complications Status: Acute Assessment and Plan: * follow accuchecks * glycemic control Will continue to follow. Subjective Date/time seen: 02/08/21 12:20 No other acute issues or problems voiced at this time; continues to make good urine output with stability if not improvement in renal function; no events overnight or earlier this morning; no apparent distress at this time. Exam Narrative: General: WD/WN female in NAD; mild confusion at times Heart: normal S1 and S2; no rub Lungs: clear to auscultation Abdomen: soft, nontender, nondistended, positive bowel sounds Extremities: no cyanosis or clubbing; trace edema Skin: warm and dry Objective Data Vital Signs Vital Signs: Vital Signs Temp Pulse Resp BP Pulse Ox 02/08/21 05:45 36.4 C 89 16 121/55 L 91 02/07/21 21:14 36.4 C 93 16 140/52 L 96 02/07/21 20:17 81 18 96 02/07/21 14:15 36.4 C 103 H 12 136/85 98 Intake/Output Intake/Output: Intake & Output 02/05/21 02/06/21 02/07/21 02/08/21 23:59 23:59 23:59 23:59 Intake Total 1100 1790 780 480 Output Total 1475 1650 2300 1300 Balance -375 140 -1520 -820 Meds/Results Medications: Active Medications Generic Name Dose Route Start Last Admin Trade Name Freq PRN Reason Stop Dose Admin Acetaminophen 650 mg 02/04/21 12:04 Acetaminophen 325 Mg Tablet PO Q6H PRN M
--- NOTE | 2021-02-08 12:20 | PM.PNNEP ---
Progress Note: A&P Assessment and Plan (1) PEREZ (acute kidney injury): Code(s): N17.9 - Acute kidney failure, unspecified Status: Acute Assessment and Plan: multifactorial ATN: - sepsis/infection (UTI) - obstruction/hydronephrosis - concurrent ALICE-I and diuretic use prior to admission s/p left ureteral stent placement by Urology IVF resuscitation imaging studies noted to date HD x 4 sessions -- creatinine relatively stable and noted increase in urine output -- suspect renal recovery continue to hold dialysis treatments at this time follow repeat labs and UOP (2) Septic shock: Code(s): A41.9 - Sepsis, unspecified organism; R65.21 - Severe sepsis with septic shock Status: Acute Assessment and Plan: resolved due to combination of UTI, nephrolithiasis, and instrumentation blood and urine cultures with E.coli repeat cultures negative continue antibiotics (3) Urinary tract infection: Qualifiers: Hematuria presence: without hematuria Urinary tract infection type: site unspecified Qualified Code(s): N39.0 - Urinary tract infection, site not specified Code(s): N39.0 - Urinary tract infection, site not specified Status: Acute Assessment and Plan: see #2 follow-up on urine culture (4) Hyperkalemia: Code(s): E87.5 - Hyperkalemia Status: Acute Assessment and Plan: resolved likely due to PEREZ and acidosis along with hyperglycemia follow repeat levels (5) Elevated troponin: Code(s): R77.8 - Other specified abnormalities of plasma proteins Status: Acute Assessment and Plan: Cardiology recommendations noted continue supportive care (6) Diabetes: Code(s): E11.9 - Type 2 diabetes mellitus without complications Status: Acute Assessment and Plan: follow accuchecks glycemic control Will continue to follow. Subjective Date/time seen: 02/08/21 12:20 No other acute issues or problems voiced at this time; continues to make good urine output with stability if not improvement in renal function; no events overnight or earlier this morning; no apparent distress at this time. Exam Narrative: General: WD/WN female in NAD; mild confusion at times Heart: normal S1 and S2; no rub Lungs: clear to auscultation Abdomen: soft, nontender, nondistended, positive bowel sounds Extremities: no cyanosis or clubbing; trace edema Skin: warm and dry Objective Data Vital Signs Vital Signs: Vital Signs Temp Pulse Resp BP Pulse Ox 02/08/21 05:45 36.4 C 89 16 121/55 L 91 02/07/21 21:14 36.4 C 93 16 140/52 L 96 02/07/21 20:17 81 18 96 02/07/21 14:15 36.4 C 103 H 12 136/85 98 Intake/Output Intake/Output: Intake & Output 02/05/21 02/06/21 02/07/21 02/08/21 23:59 23:59 23:59 23:59 Intake Total 1100 1790 780 480 Output Total 1475 1650 2300 1300 Balance -375 140 -1520 -820 Meds/Results Medications: Active Medications Generic Name Dose Route Start Last Admin Trade Name Freq PRN Reason Stop Dose Admin Acetaminophen 650 mg 02/04/21 12:04 Acetaminophen 325 Mg Tablet PO Q6H PRN Mild Pain (1-3) or Fever Dextrose 12.5 gm 01/28/21 17:01 Dextrose 50% 25 Gm/50 Ml Syringe IV PUSH PRN PRN Hypoglycemia Protocol Glucagon 1 mg 01/28/21 17:01 Glucagon For Inj 1 Mg Vial IM PRN PRN Hypoglycemia Protocol Glucose 15 gm 01/28/21 17:01 Glucose Oral Gel 15 Gm Of Glucse In 37.5 Gm Tube PO PRN PRN Hypoglycemia Protocol Heparin Sodium (Porcine) 5,000 units 01/28/21 21:00 01/29/21 20:00 Heparin Sodium 5,000 Units/Ml Vial SUB-Q 5,000 units Q12HR MIGUEL Administration Dextrose 1,000 mls @ 100 mls/hr 01/28/21 17:01 Dextrose 5% 1,000 Ml IVPB PRN PRN Hypoglycemia Protocol Albumin Human 50 mls @ 999 mls/hr 01/31/21 12:0
[2021-02-08] MEDS: INSULIN ASPART (*BKC) 100 UNITS/ML SUB-Q ×2 (12:40→16:38)
[2021-02-08 14:00] VITALS: BP 135/46; PULSE 111; RESP 18; TEMP 36.4; O2SAT 98
--- NOTE | 2021-02-08 14:27 | PM.IMPN ---
Progress Note: A&P Assessment and Plan (1) Septic shock: Code(s): A41.9 - Sepsis, unspecified organism; R65.21 - Severe sepsis with septic shock Status: Acute Assessment and Plan: RESOLVED: Patient has been off all pressors for greater than 48 hours Severe sepsis secondary to UTI, kidney stone, instrumentation -01/28/2021: Blood cultures growing E coli 2 of 2 bottles pansensitive -01/28/2021: Urine cultures growing E coli -02/01/2021: Preliminary results - No growth x2 -OFF all pressors -LFTs improving -patient had dialysis 02/04/21 11:28 02/03/21 patient is 65-year-old female was admitted with urosepsis septic shock resulting in respiratory failure and was intubated, patient was just extubated on 02/02 patient remains confused unable to provide detailed review of symptom patient blood and urine culture grew E coli pansensitive being treated for imipenem, and repeat blood culture on 02/01 still no growth, patient had elevated tropes seen by Cardiology suspect type 2 monitor infarction secondary to sepsis and patient end-stage renal disease, is on 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, patient will be transferred out of ICU today, will continue to monitor patient. 02/04/2021 Interval History: patient with urosepsis and septic shock was extubated on02/02 patient out out of ICU on medical floor states feels exhausted working with a physical therapy, urine and blood culture is growing E coli sensitive to imipenem will continue, repeat blood culture still no growth. will continue PT OT patient will benefit going to acute rehab, son is present in the room gave updates and answered all his questions. patient with end-stage renal disease on 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 seen by youth worker will have a scheduled dialysis. 02/05/2021 Interval History: patient with urosepsis and septic shock was extubated on02/02 patient out out of ICU on medical floor, today patient seen in dialysis and feeling much better at her breakfast, and feels more energetic, patient urine and blood culture growing E coli patient being treated with imipenem 10/31, repeat blood culture no growth so far, will continue, will continue antibiotic total of ten-day, will continue PT OT patient will benefit going to acute rehab 02/06/2021 patient with urosepsis and septic shock extubated 02/02/21 out of the ICU acute renal failure getting dialyzed intermittently. Last dialysis on 02/04/2021. Bacteremia with E coli on imipenem 12/01 blood culture repeat on 02/01 21- so for. PT OT suggesting rehab placement await renal recovery and dialysis needs DVT prophylaxis with heparin subQ on imipenem for antibiotics insulin therapy with Lantus 20 units b.i.d. blood sugar controlled 02/07/2021 patient with urosepsis and septic shock extubated 02/02/2021 100 ICU acute renal failure needing dialysis intermittently last dialysis was on 02/04/2021. Urine output is picking up. Creatinine slowly improving she still has a Alex catheter in place for in case he needs dialysis is hopeful that she might not need further dialysis. Continue to monitor urine output and renal function. She is on imipenem 10/10 days course. Bacteremia with E coli 01/28/2021 repeat blood culture 02/02/2020 has been negative. Diabetes control SSI and Lantus as ordered blood sugar trend reviewed 02/08/2021 patient with urosepsis and septic shock with respiratory failure extubated 02/02/2021 acute renal failure needing dialysis intermittently last dialysis was on 02/05/2021. Urine output is improving. Creatinine continues to improve currently down to 2.3. Contacted primary care's office for his baseline creatinine level which was 0.7 on 08/02/2020. Monitor off dialysis and hopefully renal function will continue to improve requiring no further dialysis. Nephrology is following as well. Bacteremia with E coli diagnosed 01/28/2021 repeat blood culture 02/01/2021 has been negative. Definitive treatment with stent placement was done on 01/29/2021. Completes 1
[2021-02-08 16:35] LABS: Glucose Point of Care 273 mg/dl (65-105)
[2021-02-08 21:36] LABS: Glucose Point of Care 288 mg/dl (65-105)
[2021-02-08 21:37] VITALS: O2SAT 97
[2021-02-08 22:00] VITALS: BP 125/50; PULSE 94; RESP 16; TEMP 36.5; O2SAT 98
[2021-02-09] MEDS: ONDANSETRON INJ 4 MG/2 ML VIAL IV PUSH (03:31)
[2021-02-09 03:37] VITALS: TEMP 36.6
[2021-02-09 05:27] VITALS: BP 129/55; PULSE 100; RESP 14; TEMP 37.3; O2SAT 95
[2021-02-09] MEDS: CENTRAL LINE FLUSH 10 ML IV PUSH (05:46)
[2021-02-09 05:55] LABS: Hematocrit 26.7 % (37.0-47.0); Hemoglobin 8.8 g/dL (12.0-15.0); Mean Corpuscular Hemoglobin 31.5 pg (26-34); Mean Corpuscular Volume 95.7 fl (80-100); Mean Platelet Volume 9.9 fl (7.4-10.4); Platelet Count Result 242 k/mm3 (150-375); Red Blood Count 2.79 M/mm3 (4.2-5.4); Red Cell Distribution Width 14.3 % (11.5-14.5); White Blood Count 7.9 K/mm3 (4.5-10.0)
[2021-02-09 06:05] LABS: Anion Gap 0 mmol/L (8-16); Blood Urea Nitrogen 41 mg/dL (7-17); Carbon Dioxide 34 mmol/L (22-30); Chloride 106 mmol/L (98-107); Estimated CRCL calculation 33 ml/min; Estimated Glomerular Filt Rate 25; Glucose 200 mg/dL (65-110); Potassium 4.1 mmol/L (3.4-5.0); Sodium 140 mmol/L (137-145)
[2021-02-09 07:40] LABS: Glucose Point of Care 154 mg/dl (65-105)
[2021-02-09] MEDS: PANTOPRAZOLE SODIUM IV 40 MG VIAL IV PUSH (08:21)
[2021-02-09] MEDS: INSULIN GLARGINE (*BKC) 100 UNITS/ML 20 UNITS SUB-Q (08:21)
--- NOTE | 2021-02-09 10:56 | PCNFU ---
Nutrition Follow-Up Complete: Inadequate Oral intake as related to mechanical ventilation as evidenced by Tube feedings. Goal: Meet estimated nutritional needs Patient is progressing towards goal.We will continue with current goal. Pt current nutrition is DBCC. Last recorded weight is 116.7 kg, down from 119.1 kg. Bowel Motility:+BM report 02/07 Labs Reviewed:GFR 25, BUN 25, Cr 2.0,BUN 41, Glu 200, Hgb 8.8 Meds Noted:Lantus, Primaxin, Protonix, Zofran Skin:WNL Additional Notes: Nutrition follow up. Patient is consuming 50-90% of meals. She would like information on diabetic diet. Will attach to patient instructions. No Dialysis today. Agree with diet orders. Monitoring: Will monitor every 5 days.
[2021-02-09 11:36] LABS: Glucose Point of Care 225 mg/dl (65-105)
[2021-02-09] MEDS: INSULIN ASPART (*BKC) 100 UNITS/ML SUB-Q (11:38)
--- NOTE | 2021-02-09 13:24 | P.PNNP_ITS ---
Progress Note: A&P Assessment and Plan (1) PEREZ (acute kidney injury): Code(s): N17.9 - Acute kidney failure, unspecified Status: Acute Assessment and Plan: * multifactorial ATN: - sepsis/infection (UTI) - obstruction/hydronephrosis - concurrent ALICE-I and diuretic use prior to admission * s/p left ureteral stent placement by Urology * IVF resuscitation * imaging studies noted to date * HD x 4 sessions -- creatinine improving and noted good urine output -- suspect renal recovery * continue to hold dialysis treatments at this time * ok to d/c temporary dialysis catheter * follow repeat labs and UOP (2) Septic shock: Code(s): A41.9 - Sepsis, unspecified organism; R65.21 - Severe sepsis with septic shock Status: Acute Assessment and Plan: * resolved * due to combination of UTI, nephrolithiasis, and instrumentation * blood and urine cultures with E.coli * repeat cultures negative * continue IV antibiotics (3) Urinary tract infection: Qualifiers: Hematuria presence: without hematuria Urinary tract infection type: site unspecified Qualified Code(s): N39.0 - Urinary tract infection, site not specified Code(s): N39.0 - Urinary tract infection, site not specified Status: Acute Assessment and Plan: * see #2 * follow-up on urine culture (4) Hyperkalemia: Code(s): E87.5 - Hyperkalemia Status: Acute Assessment and Plan: * resolved * likely due to PEREZ and acidosis along with hyperglycemia * follow repeat levels (5) Elevated troponin: Code(s): R77.8 - Other specified abnormalities of plasma proteins Status: Acute Assessment and Plan: * Cardiology recommendations noted * continue supportive care (6) Diabetes: Code(s): E11.9 - Type 2 diabetes mellitus without complications Status: Acute Assessment and Plan: * follow accuchecks * glycemic control Will continue to follow - not opposed to discharge from renal perspective. Subjective Date/time seen: 02/09/21 13:24 Feels reasonably well and in no distress; happy about potential discharge today; continues to make good urine output (likely post ATN diuresis) and slow improvement in renal function/creatinine as well; son at bedside and we disc ussed the situation. Exam Narrative: General: WD/WN female in NAD; mild confusion at times Heart: normal S1 and S2; no rub Lungs: clear to auscultation Abdomen: soft, nontender, nondistended, positive bowel sounds Extremities: no cyanosis or clubbing; trace edema Skin: warm and intact Objective Data Vital Signs Vital Signs: Vital Signs Temp Pulse Resp BP Pulse Ox 02/09/21 05:27 37.3 C 100 14 129/55 L 95 02/09/21 03:37 36.6 C 02/08/21 22:00 36.5 C 94 16 125/50 L 98 02/08/21 21:37 97 Intake/Output Intake/Output: Intake & Output 02/06/21 02/07/21 02/08/21 02/09/21 23:59 23:59 23:59 23:59 Intake Total 1360 200 3823 790 Output Total 1650 2300 1900 1000 Balance 140 -1520 -140 -210 Meds/Results Medications: Active Medications Generic Name Dose Route Start Last Admin Trade Name Freq PRN Reason Stop Dose Admin Acetaminophen 650 mg 02/04/21 1
--- NOTE | 2021-02-09 13:24 | PM.PNNEP ---
Progress Note: A&P Assessment and Plan (1) PEREZ (acute kidney injury): Code(s): N17.9 - Acute kidney failure, unspecified Status: Acute Assessment and Plan: multifactorial ATN: - sepsis/infection (UTI) - obstruction/hydronephrosis - concurrent ALICE-I and diuretic use prior to admission s/p left ureteral stent placement by Urology IVF resuscitation imaging studies noted to date HD x 4 sessions -- creatinine improving and noted good urine output -- suspect renal recovery continue to hold dialysis treatments at this time ok to d/c temporary dialysis catheter follow repeat labs and UOP (2) Septic shock: Code(s): A41.9 - Sepsis, unspecified organism; R65.21 - Severe sepsis with septic shock Status: Acute Assessment and Plan: resolved due to combination of UTI, nephrolithiasis, and instrumentation blood and urine cultures with E.coli repeat cultures negative continue IV antibiotics (3) Urinary tract infection: Qualifiers: Hematuria presence: without hematuria Urinary tract infection type: site unspecified Qualified Code(s): N39.0 - Urinary tract infection, site not specified Code(s): N39.0 - Urinary tract infection, site not specified Status: Acute Assessment and Plan: see #2 follow-up on urine culture (4) Hyperkalemia: Code(s): E87.5 - Hyperkalemia Status: Acute Assessment and Plan: resolved likely due to PEREZ and acidosis along with hyperglycemia follow repeat levels (5) Elevated troponin: Code(s): R77.8 - Other specified abnormalities of plasma proteins Status: Acute Assessment and Plan: Cardiology recommendations noted continue supportive care (6) Diabetes: Code(s): E11.9 - Type 2 diabetes mellitus without complications Status: Acute Assessment and Plan: follow accuchecks glycemic control Will continue to follow - not opposed to discharge from renal perspective. Subjective Date/time seen: 02/09/21 13:24 Feels reasonably well and in no distress; happy about potential discharge today; continues to make good urine output (likely post ATN diuresis) and slow improvement in renal function/creatinine as well; son at bedside and we discussed the situation. Exam Narrative: General: WD/WN female in NAD; mild confusion at times Heart: normal S1 and S2; no rub Lungs: clear to auscultation Abdomen: soft, nontender, nondistended, positive bowel sounds Extremities: no cyanosis or clubbing; trace edema Skin: warm and intact Objective Data Vital Signs Vital Signs: Vital Signs Temp Pulse Resp BP Pulse Ox 02/09/21 05:27 37.3 C 100 14 129/55 L 95 02/09/21 03:37 36.6 C 02/08/21 22:00 36.5 C 94 16 125/50 L 98 02/08/21 21:37 97 Intake/Output Intake/Output: Intake & Output 02/06/21 02/07/21 02/08/21 02/09/21 23:59 23:59 23:59 23:59 Intake Total 5123 386 8103 790 Output Total 1650 2300 1900 1000 Balance 140 1520 -140 -210 Meds/Results Medications: Active Medications Generic Name Dose Route Start Last Admin Trade Name Freq PRN Reason Stop Dose Admin Acetaminophen 650 mg 02/04/21 12:04 Acetaminophen 325 Mg Tablet PO Q6H PRN Mild Pain (1-3) or Fever Dextrose 12.5 gm 01/28/21 17:01 Dextrose 50% 25 Gm/50 Ml Syringe IV PUSH PRN PRN Hypoglycemia Protocol Glucagon 1 mg 01/28/21 17:01 Glucagon For Inj 1 Mg Vial IM PRN PRN Hypoglycemia Protocol Glucose 15 gm 01/28/21 17:01 Glucose Oral Gel 15 Gm Of Glucse In 37.5 Gm Tube PO PRN PRN Hypoglycemia Protocol Heparin Sodium (Porcine) 5,000 units 01/28/21 21:00 01/29/21 20:00 Heparin Sodium 5,000 Units/Ml Vial SUB-Q 5,000 units Q12HR MIGUEL Administration Dextrose 1,000 mls @ 100 mls/hr 01/28/21 17:01 Dextrose 5% 1,000 Ml IVPB PRN PRN
--- NOTE | 2021-02-09 14:05 | PM.DS ---
DS: Admitting Diagnosis Discharge Date 02/09/2021 Admitting Diagnosis Urosepsis septic shock DS: Discharge Diagnosis Discharge Diagnosis (1) Septic shock: Code(s): A41.9 - Sepsis, unspecified organism; R65.21 - Severe sepsis with septic shock Status: Acute Assessment and Plan: Admitted with septic shock to the ICU. Required vasopressors in the beginning. Workup revealed E coli bacteremia which is pansensitive on 01/28/2021. Source of infection urinary tract infection with obstructive uropathy. Urine culture growing E coli as well. Repeat blood cultures on 02/01/2021 was negative. Treated with imipenem for 10 days course and completed the therapy during the hospital stay. She also had shock liver and acute kidney injury with creatinine peaking up to 5 needing 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. With recovery of her septic shock and underlying infection her kid creatinine improved urine output improved and required no further dialysis. She also had acute respiratory failure on admission due to septic take shock and was intubated and was on mechanical ventilator. She was extubated on 02/02/2021 Her baseline creatinine from her primary care's office was 0.7 prior to this visit She for the continued PT/OT and initially was requiring rehabilitation however improved and was opting to go home with home health which was arranged at the time of discharge. (2) Urinary tract infection: Qualifiers: Hematuria presence: without hematuria Urinary tract infection type: site unspecified Qualified Code(s): N39.0 - Urinary tract infection, site not specified Code(s): N39.0 - Urinary tract infection, site not specified Status: Acute Assessment and Plan: See above (3) PEREZ (acute kidney injury): Code(s): N17.9 - Acute kidney failure, unspecified Status: Acute Assessment and Plan: Likely secondary to sepsis and obstruction leading to hydronephrosis. Patient also on diuretics and Tyrell inhibitor which are on hold CT reviewed. -status post left ureteral stent placed by Urology on 01/28/2021 Renal ultrasound on, 01/30: 1. Left kidney poorly visualized. Hydronephrosis cannot be confirmed or excluded. 2. 7 mm nonobstructing right kidney stone. -CT scan of the abdomen pelvis 01/30/2021: Left internal ureteral stent in expected position with 4 mm stone adjacent to the proximal stent and 4 mm stone in the urinary bladder.2. Nonobstructing right nephrolithiasis. -dialysis catheter was placed on 01/31/2021 and started on HD on 01/31/2021 further dialyzed on 02/01, 02/02, 02/04 No further dialysis since then (4) Calculus of left kidney: Code(s): N20.0 - Calculus of kidney Status: Acute Assessment and Plan: CT MPRESSION: 1. Bilateral nephrolithiasis with obstructing 5-6 mm proximal left ureteral stone with mild left hydroureteronephrosis. Status post cystoscopy, left retrograde pyelogram and left ureteral stent placement on 01/28/2021 -urology following the patient She will need to follow up with Urology on outpatient basis for her ureteral stent placed on 01/28/2021 and also other bilateral nephrolithiasis that she has (5) Transaminitis: Code(s): R74.01 - Elevation of levels of liver transaminase levels Status: Acute Assessment and Plan: Likely secondary to shock. Hold statin LFTs trending down Resume statin at discharge (6) Encephalopathy: Code(s): G93.40 - Encephalopathy, unspecified Status: Acute Assessment and Plan: Resolved likely due to septic shock Head CT negative (7) Elevated troponin: Code(s): R77.8 - Other specified abnormalities of plasma proteins Status: Acute Assessment and Plan: Likely type 2 non STEMI from sepsis. EKG reviewed and shows no ST elevation. Serial troponin continue aspirin Echocardiogram 01/30/2021: EF of 60-65%, grade 2 diastolic dysfunction no segmental wall motion abnormalities, moderate pulmonary hyper
[2021-02-09 14:36] VITALS: BP 130/56; PULSE 97; RESP 18; TEMP 36.8; O2SAT 97
--- OUTSIDE RECORDS SUMMARY | 2021-02-12 12:08 | XMS_ITS ---
:1955 Author Care Team Providers Name Role Phone DR. THELMA MANN Primary Care Provider [phone] DR. THELMA MANN Referring Provider [phone] Allergies Code Code System Name Reaction Severity Status Onset NKDA ? Medications Name Status Start Date Stop Date ? ? amitriptyline 50 mg tablet Completed ? 11/09 amoxicillin 500 mg capsule Completed ? 11/09 amoxicillin 875 mg-potassium Completed ? clavulanate 125 mg tablet atorvastatin 10 mg tablet Active ? Not av ailable atorvastatin calcium 10 mg tabs Active ? Not available azithromycin 250 mg tablet Completed ? 11/09 Basaglar KwikPen U-100 Insulin 100 Active ? Not available unit/mL (3 mL) subcutaneous BD Insulin Syringe Ultra-Fine 1 mL 30 Completed ? 11/10/2019 gauge x 1/2 BD SafetyGlide Insulin Syringe 0.5 mL Completed ? 11/10/2019 29 gauge x 1/2 BD Ultra-Fine Sanam Pen Needle 32 gauge Active ? Not available x benzonatate 100 mg capsule Completed ? 11/09 Besivance 0.6 % eye drops,suspension Completed ? 11/10/2019 Bystolic 5 mg tablet Active ? Not availab le cephalexin 500 mg caps Active ? Not avai lable chlorhexidine gluconate 0.12 % Completed ? 0 11/10/2019 mouthwash ciprofloxacin 250 mg tablet Completed ? 10/22 dic/lido/maria m/pentox/clon/gabriella 4/5/5/3/0.2/3% cream Completed ? 11/10/2019 apply a Nickel size AMOUNT TO treatment AREA ONE TO THREE times daily fluconazole 150 m
== END 2021-02-09 17:17 | disposition home health service (06) | DRG 853 ==
LOC: ANHED 13:19 → ANHICU 01-29 15:40 → ANH2MED 02-08 13:28 → ANHED 02-12 12:06 → ANHSURGERY 02-12 12:06 → ANH2MED 02-12 12:06 → ANHICU 02-12 12:06
PROVIDERS: Family Medicine; Internal Medicine; Internal Medicine Nephrology; Urology; Admitting Provider Internal Medicine; Emergency Provider Nurse Practitioner; PCP Internal Medicine; Visit Provider Family Medicine
PROC: 0T778DZ Dilation of Left Ureter with Intraluminal Device, Via Natural or Artificial Opening Endoscopic (ICD-10-PCS; CPT 52352; principal; 2021-01-28 15:30)
DX: A41.9 Sepsis, unspecified organism (principal); E11.10 Type 2 diabetes mellitus with ketoacidosis without coma; R65.21 Severe sepsis with septic shock; I21.A1 Myocardial infarction type 2; G93.41 Metabolic encephalopathy; J96.00 Acute respiratory failure, unspecified whether with hypoxia or hypercapnia; N18.6 End stage renal disease; K72.00 Acute and subacute hepatic failure without coma; N17.0 Acute kidney failure with tubular necrosis; N39.0 Urinary tract infection, site not specified; N20.1 Calculus of ureter; N13.6 Pyonephrosis; N17.9 Acute kidney failure, unspecified; I12.0 Hypertensive chronic kidney disease with stage 5 chronic kidney disease or end stage renal disease; Z68.41 Body mass index [BMI] 40.0-44.9, adult; Z20.822 Contact with and (suspected) exposure to COVID-19; E11.9 Type 2 diabetes mellitus without complications; G20 Parkinson's disease; D70.9 Neutropenia, unspecified; E11.65 Type 2 diabetes mellitus with hyperglycemia; R74.01 Elevation of levels of liver transaminase levels; E87.5 Hyperkalemia; Z88.0 Allergy status to penicillin; B96.20 Unspecified Escherichia coli [E. coli] as the cause of diseases classified elsewhere; Z79.4 Long term (current) use of insulin; E11.22 Type 2 diabetes mellitus with diabetic chronic kidney disease; E66.01 Morbid (severe) obesity due to excess calories
CPT/HCPCS: 36415; 36556; 36600; 51701; 51702; 70450; 71045; 71250; 74018; 74176; 74420; 76775; 80048; 80053; 80069; 81001; 82010; 82140; 82375; 82436; 82550; 82570; 82805; 82948; 83036; 83050; 83605; 83690; 83735; 84100; 84133; 84300; 84484; 85025; 85027; 85055; 85380; 85610; 85730; 85999; 86140; 86704; 86705; 86706; 87040; 87077; 87086; 87088; 87186; 87340; 87804; 92610; 93005; 93306; 94002; 94003; 96361; 96365; 96367; 96375; 97110; 97116; 97161; 97165; 97530; 97535; 99285; A9270; C1751; C1752; C1758; C1769; C2617; C8929; C9113; C9803; G0257; J0696; J0743; J1644; J1720; J1815; J2250; J2370; J2405; J3010; J7030; J7060; P9047; Q5105; Q9957; Q9966; U0003; U0005

== ENCOUNTER 2021-02-16 10:39 | Outpatient (NON) | payer MEDICARE, SELFPAY ==
[2021-02-16 11:16] LABS: Basophils Percent Auto 0.4 % (0.2-1.2); Eosinophils Absolute Auto 0.1 K/mm3 (0-0.3); Eosinophils Percent Auto 2.9 % (0-4.4); Hemoglobin 7.4 g/dL (12.0-15.0); Immature Granulocyte Absolute 0.01 K/mm3 (0.00-0.031); Immature Granulocyte Percent A 0.2 % (0-0.5); Lymphocytes Absolute Auto 0.82 K/mm3 (0.9-3.2); Lymphocytes Percent Auto 18.4 % (18.3-44.2); Mean Corpuscular HGB Conc 30.8 g/dl (32-36); Mean Corpuscular Hemoglobin 30.8 pg (26-34); Mean Platelet Volume 10.2 fl (7.4-10.4); Monocytes Absolute Auto 0.5 K/mm3 (0.1-0.6); Monocytes Percent Auto 11.2 % (2.6-8.5); Neutrophils Percent Auto 66.9 % (45.5-73.1); Platelet Count Result 242 k/mm3 (150-375); Red Cell Distribution Width 13.8 % (11.5-14.5); White Blood Count 4.5 K/mm3 (4.5-10.0)
[2021-02-16 11:24] LABS: Alanine Aminotransferase 13 U/L (4-35); Albumin Level 2.8 g/dL (3.5-5.1); Alkaline Phosphatase 118 U/L (38-126); Anion Gap 5 mmol/L (8-16); Aspartate Amino Transferase 16 U/L (14-36); Bilirubin,Total 0.3 mg/dL (0.2-1.3); Blood Urea Nitrogen 34 mg/dL (7-17); Calcium 8.4 mg/dL (8.4-10.2); Carbon Dioxide 32 mmol/L (22-30); Chloride 105 mmol/L (98-107); Estimated Glomerular Filt Rate 41; Glucose 242 mg/dL (65-110); Potassium 4.3 mmol/L (3.4-5.0); Sodium 142 mmol/L (137-145)
== END 2021-02-16 10:40 | disposition home or self-care (01) ==
PROVIDERS: PCP Internal Medicine; Referring Provider Internal Medicine; Visit Provider Internal Medicine
DX: N39.0 Urinary tract infection, site not specified (principal); D64.9 Anemia, unspecified; N17.9 Acute kidney failure, unspecified; N20.2 Calculus of kidney with calculus of ureter; A41.9 Sepsis, unspecified organism; E11.65 Type 2 diabetes mellitus with hyperglycemia; E87.5 Hyperkalemia
CPT/HCPCS: 80053; 85025

== ENCOUNTER 2021-02-23 14:53 | Outpatient (NON) | payer MEDICARE, SELFPAY | END 2021-02-23 14:54 | disposition home or self-care (01) | LOC: HOME HLTH 14:55 | PROVIDERS: PCP Internal Medicine; Visit Provider Urology | DX: N20.1 Calculus of ureter (principal) | CPT/HCPCS: 87077; 87086; 87147; 87181; 87186 ==

== ENCOUNTER 2021-02-28 13:31 | Outpatient (NON) | payer MEDICARE, SELFPAY ==
[2021-02-28 13:48] LABS: Basophils Percent Auto 0.2 % (0.2-1.2); Eosinophils Absolute Auto 0.2 K/mm3 (0-0.3); Eosinophils Percent Auto 2.4 % (0-4.4); Hematocrit 23.7 % (37.0-47.0); Hemoglobin 7.5 g/dL (12.0-15.0); Immature Granulocyte Absolute 0.03 K/mm3 (0.00-0.031); Immature Granulocyte Percent A 0.5 % (0-0.5); Lymphocytes Absolute Auto 1.05 K/mm3 (0.9-3.2); Mean Corpuscular HGB Conc 31.6 g/dl (32-36); Mean Corpuscular Hemoglobin 30.5 pg (26-34); Mean Corpuscular Volume 96.3 fl (80-100); Mean Platelet Volume 9.3 fl (7.4-10.4); Monocytes Absolute Auto 0.5 K/mm3 (0.1-0.6); Monocytes Percent Auto 7.5 % (2.6-8.5); Neutrophils Absolute Auto 4.5 K/mm3 (1.3-6.7); Neutrophils Percent Auto 72.4 % (45.5-73.1); Platelet Count Result 304 k/mm3 (150-375); Red Blood Count 2.46 M/mm3 (4.2-5.4); Red Cell Distribution Width 14.5 % (11.5-14.5); White Blood Count 6.2 K/mm3 (4.5-10.0)
== END 2021-02-28 13:32 | disposition home or self-care (01) ==
PROVIDERS: PCP Internal Medicine; Visit Provider Internal Medicine
DX: N39.0 Urinary tract infection, site not specified (principal); N20.2 Calculus of kidney with calculus of ureter; A41.9 Sepsis, unspecified organism
CPT/HCPCS: 85025

== ENCOUNTER 2021-03-07 11:28 | Outpatient (CLI) | payer MEDICARE, SELFPAY ==
--- NOTE | ~2021-03-07 | XR_ITS ---
EXAMINATION: XR abdomen/kub 1V EXAM DATE: 03/07/2021 11:54 INDICATION: Left ureteral stone. TECHNIQUE: Frontal projection of the upper abdomen, frontal projection lower abdomen/pelvis for inter pretation. Comparison is made to prior examination from 01/30/2021. FINDINGS: There is approximately 6 mm calcific density projecting over the proximal aspect of the le ft double-J ureteral stent. Stent in position. Additional right nephrolithiasis similar in size. Nono bstructive bowel gas pattern. There are cholecystectomy clips. IMPRESSION: 1. Left proximal ureteral stone. 2. Right nephrolithiasis. 3. Stent in position. Reviewed, dictated and finalized at [facility]. 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
== END 2021-03-07 11:29 | disposition home or self-care (01) ==
LOC: ANHIMG 11:35
PROVIDERS: PCP Internal Medicine; Visit Provider Urology
DX: N20.2 Calculus of kidney with calculus of ureter (principal)
CPT/HCPCS: 74018

== ENCOUNTER 2021-03-10 19:39 | Emergency (ER) | payer MEDICARE, SELFPAY ==
[2021-03-10 20:05] VITALS: BP 143/67; PULSE 101; RESP 17; TEMP 37.2; O2SAT 99
--- NOTE | 2021-03-10 20:49 | PC.NURSE ---
Patient and her son state they are leaving, they will follow up with urology on friday. Patient informed of risks of leaving, states she wants to go home. Patient taken home by her son.
== END 2021-03-11 04:34 | disposition left against medical advice (07) ==
LOC: ANHED 21:02
PROVIDERS: PCP Internal Medicine
DX: Z53.21 Procedure and treatment not carried out due to patient leaving prior to being seen by health care provider (principal)
CPT/HCPCS: 99199

== ENCOUNTER 2021-03-12 12:46 | Emergency (ER) | payer MEDICARE, SELFPAY ==
--- NOTE | ~2021-03-12 | CT_ITS ---
EXAMINATION: CT abdomen pelvis wo con DATE: 03/12/2021 16:26 INDICATION: Fever. Ureteral stent. TECHNIQUE: Computed tomography (CT) of the abdomen and pelvis was performed without intravenous contr ast. Automated exposure control and iterative reconstruction technique were employed. Exam dose: 139 4.66 mGy-cm total exam DLP. COMPARISON: 01/30/[address] abdomen pelvis 03/07/2021 KUB FINDINGS: There is mild bibasilar discoid atelectasis and/or scarring involving the middle lobe, ling herminio and both lower lobes. Prominent mitral annulus calcification. Coronary artery calcifications. Bor derline heart size. No pericardial or pleural effusion. Status post cholecystectomy. No hepatic, splenic, pancreatic, adrenal or renal space-occupying mass lesion is evident on this limi blair noncontrast examination. Approximately 8 mm nonobstructing posterior mid to upper right renal calculus. No right ureteral calc ulus or right hydronephrosis. There are 3 nonobstructing left renal calculi measuring 4 mm or smaller. There is a left internal urinary stent, the proximal pigtail in the left renal pelvis, distal pigtail in the posterior aspect of the left side of the urinary bladder. There is an approximately 5.7 mm pr oximal left ureteral calculus. There is moderate left hydronephrosis. There is moderate diffuse thickening of the urinary bladder wall. Cystitis is not excluded. There is atherosclerotic calcification of the abdominal aorta and iliac arteries but no evidence of a neurysm. No intraperitoneal or retroperitoneal or pelvic mass lesion or adenopathy or ascites. Normal appendix. There is some fluid levels of the small bowel and right colon again enterocolitis. No bowel obstructi on, bowel wall thickening, pneumatosis or intraperitoneal free air is evident. There are numerous diverticula of the sigmoid and descending colon; no CT evidence of diverticulitis. Diffuse osteopenia. Degenerative changes of the thoracic and lumbar spine. Osteoarthritis of the hip joints. No suspicious osteolytic or osteoblastic lesions are noted. IMPRESSION: Moderate left hydroureteronephrosis; 5.7 mm proximal left ureteral calculus Left internal urinary stent in expected position Bilateral nephrolithiasis Moderate diffuse thickening of the urinary bladder wall; cystitis is not excluded Air-fluid levels in small bowel and right colon; consider enterocolitis Diverticulosis of the left colon; no CT evidence of diverticulitis Normal appendix Status post cholecystectomy Bibasilar discoid atelectasis and/or scarring Reviewed, dictated and finalized at [facility]. Reviewed, dictated and finalized at location [facility]. ET JACK IMPRESSION: Moderate left hydroureteronephrosis; 5.7 mm proximal left ureteral calculus Left internal urinary stent in expected position Bilateral nephrolithiasis Moderate diffuse thickening of the urinary bladder wall; cystitis is not exclud ed Air-fluid levels in small bowel and right colon; consider enterocolitis Diverticulosis of the left colon; no CT evidence of diverticulitis Normal appendix Status post cholecystectomy Bibasilar discoid atelectasis and/or scarring
[2021-03-12 12:57] VITALS: BP 106/40; PULSE 88; RESP 16; TEMP 37.7; O2SAT 96
[2021-03-12 15:50] VITALS: BP 105/44; PULSE 83; RESP 16; O2SAT 94
[2021-03-12 16:22] LABS: Basophils Percent Auto 0.6 % (0.2-1.2); Eosinophils Percent Auto 0.6 % (0-4.4); Hematocrit 24.7 % (37.0-47.0); Hemoglobin 7.6 g/dL (12.0-15.0); Immature Granulocyte Absolute 0.02 K/mm3 (0.00-0.031); Immature Granulocyte Percent A 0.6 % (0-0.5); Lymphocytes Absolute Auto 1.25 K/mm3 (0.9-3.2); Lymphocytes Percent Auto 36.8 % (18.3-44.2); Mean Corpuscular HGB Conc 30.8 g/dl (32-36); Mean Corpuscular Hemoglobin 30.4 pg (26-34); Mean Corpuscular Volume 98.8 fl (80-100); Mean Platelet Volume 8.9 fl (7.4-10.4); Monocytes Absolute Auto 0.4 K/mm3 (0.1-0.6); Monocytes Percent Auto 11.8 % (2.6-8.5); Neutrophils Absolute Auto 1.7 K/mm3 (1.3-6.7); Neutrophils Percent Auto 49.6 % (45.5-73.1); Platelet Count Result 215 k/mm3 (150-375); Red Cell Distribution Width 15.1 % (11.5-14.5); White Blood Count 3.4 K/mm3 (4.5-10.0)
[2021-03-12 16:38] LABS: Add Urine Microscopic? YES; Appearance Urine Turbid (Clear); Bacteria Urine 1+ /hpf; Bilirubin Urine Negative (Negative); Color Urine Amber (Yellow); Glucose Urine UA Negative (Negative); Hyaline Casts Urine 20-29 /lpf; Ketones Urine Negative (Negative); Leukocyte Esterase Ur 3+ LEU/UL (Negative); Nitrate Urine Negative (Negative); Protein Urine 2+ mg/dL (Negative); RBC Urine 21-50 /hpf (0-2); Specific Grav Ur 1.017 (1.001-1.035); Squamous Epithelial Cell Urine Occasional /hpf (Few); Urobilinogen Urine Negative mg/dL (<2.0); WBC Urine >75 /hpf
[2021-03-12 16:40] LABS: Blood Urine Negative (Negative)
[2021-03-12 16:41] LABS: Alanine Aminotransferase 19 U/L (4-35); Albumin Level 3.4 g/dL (3.5-5.1); Alkaline Phosphatase 120 U/L (38-126); Anion Gap 10 mmol/L (8-16); Aspartate Amino Transferase 29 U/L (14-36); Bilirubin,Total 0.3 mg/dL (0.2-1.3); Blood Urea Nitrogen 36 mg/dL (7-17); Calcium 9.4 mg/dL (8.4-10.2); Carbon Dioxide 29 mmol/L (22-30); Chloride 101 mmol/L (98-107); Estimated CRCL calculation 42 ml/min; Estimated Glomerular Filt Rate 35; Glucose 67 mg/dL (65-110); Potassium 3.9 mmol/L (3.4-5.0); Sodium 140 mmol/L (137-145)
--- NOTE | 2021-03-12 18:06 | ED.FEMALEGU ---
HPI - Female Genitourinary General Chief complaint: Urogenital-Female Stated complaint: fever Time Seen by Provider: 03/12/21 16:01 History of Present Illness HPI Narrative: Patient is a 65-year-old female who presents ER with concerns for UTI. Patient was admitted to the hospital last month for septic stone. Patient has a left-sided ureteral stent. She has known retained proximal ureteral stone. She is seeing Dr. Suarez. Reports she is supposed to have an outpatient CT scan performed today but because of the fact that she had a temperature of 99 ?F they canceled her scan. Her primary care doctor recommended she come to the ER for further evaluation and imaging. Patient reports urinary frequency and urgency as well as dysuria ongoing over the last couple days. No runny nose or sore throat or productive cough. No loss of taste or smell. Patient is not vaccinated against COVID-19. No alleviating factors. She has tried Azo. Related Data Home Medications Medication Instructions Recorded Confirmed Trulicity 3 mg SUBCUT WEEKLY 01/28/21 02/04/21 atorvastatin 10 mg PO DAILY 01/28/21 01/28/21 nebivolol [Bystolic] 5 mg PO DAILY 01/28/21 01/28/21 quinapril-hydrochlorothiazide tablet 03/10/21 03/10/21 Allergies Allergy/AdvReac Type Severity Reaction Status Date / Time No Known Allergies Allergy Verified 03/12/21 15:51 Review of Systems Review of Systems: All systems reviewed & are unremarkable except as noted in HPI and below Constitutional: Constitutional: Denies chills and Denies fatigue ENT: Denies nasal congestion and Denies sore throat Gastrointestinal: Gastrointestinal: Denies abdominal pain, Denies diarrhea, Reports nausea and Denies vomiting Genitourinary: Genitourinary: Reports nocturia, Reports dysuria, Denies flank pain and Denies urinary incontinence PMF Past Medical History Medical History (Updated 03/12/21 @ 18:09 by Agustin Pino MD) Diabetes Hyperlipidemia Hypertension Urinary tract infection Frequent Surgical History Surgical History (Updated 01/28/21 @ 17:06 by Elizabeth Segura NP) H/O breast biopsy H/O cystoscopy History of 2 sections History of removal of ovarian cyst Family History Family History (Updated 01/28/21 @ 17:07 by Elizabeth Segura NP) Father Hypertension Diabetes mellitus Parkinsons Mother Heart disease Hypertension Social History Social History (Updated 01/28/21 @ 17:07 by Elizabeth Segura NP) Social History: The patient has 2 sons. Her son Heri is the durable power real estate associate attorney for healthcare. 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 She is . Patient is a lifelong nonsmoker. She does not use any alcohol marijuana or illicit drugs. Code status full code Smoking status: Never smoker Alcohol intake: never Substance use: never Gender identity (if verbalized by the patient): Female Spiritual care concerns: No Exam Narrative: GENERAL: Well-appearing, well-nourished, and in no acute distress. HEAD: Normocephalic, atraumatic. CHEST: Clear to auscultation. No respiratory distress. HEART: Regular rate and rhythm. Normal peripheral pulses. ABDOMEN: Soft, nontender, nondistended. EXTREMITIES: Normal range of motion. No edema. SKIN: Warm, dry, no rash. NEURO: Alert and oriented x3. PSYCH: Normal mood and affect. Course Course Emergency Course: Discussed case with Dr. Yuan who is on-call for urology. We have reviewed patient's previous microbiology from urine culture. Patient will be started on Macrobid outpatient. Patient's hemoglobin is stable. Patient has been given strict return precautions including temperature of 101.0 ?F or higher. Patient is to contact Dr. Suarez's office tomorrow morning to schedule follow-up. Vital Signs Vital signs: Vital Signs Temperature 99.9 F H 03/12/21 12:57 Pulse Rate 88 03/12/21 12:57 Respiratory Rate 16 03/12/21 12:57 Blood Pressure
[2021-03-12 18:11] VITALS: BP 91/44; PULSE 81; RESP 16; O2SAT 93
[2021-03-12 18:32] VITALS: BP 100/51; PULSE 83; RESP 16; O2SAT 96
== END 2021-03-12 18:33 | disposition home or self-care (01) ==
PROVIDERS: Emergency Medicine; Emergency Provider Emergency Medicine; PCP Internal Medicine
DX: N39.0 Urinary tract infection, site not specified (principal); E11.9 Type 2 diabetes mellitus without complications; E78.5 Hyperlipidemia, unspecified; I10 Essential (primary) hypertension; N13.2 Hydronephrosis with renal and ureteral calculous obstruction; K57.90 Diverticulosis of intestine, part unspecified, without perforation or abscess without bleeding; Z79.899 Other long term (current) drug therapy; Z79.4 Long term (current) use of insulin; Z96.0 Presence of urogenital implants
CPT/HCPCS: 36415; 74176; 80053; 81001; 85025; 87077; 87086; 87186; 99284